=== PATIENT | male | born 1965 | race Hispanic/Latino ===

== ENCOUNTER 2017-12-14 01:10 | Emergency (ER) | payer BC ==
[2017-12-14] MEDS ORDERED: NA CHLORIDE 0.9% 1,000 ML ONE (02:02)
[2017-12-14] MEDS ORDERED: ONDANSETRON 4 MG/2 ML VIAL ONE ×2 (02:02→04:01)
[2017-12-14 02:25] LABS: Absolute Lymphocytes (CBC) 1.6 K/uL (0.7-4.9); Absolute Monocytes 0.8 K/uL (0.1-1.3); Absolute Neutrophil 7.8 K/uL (1.8-8.0); Basophils % 0.6 % (0-1.3); Eosinophils % 0.5 % (0-4.4); Hematocrit 40.1 % (39.6-49.0); Lymphocytes % 15.3 % (15.3-44.8); MCH 27.7 pg (27.0-35.0); MCV 86.2 fL (80-100); MPV 8.9 fL (7.6-11.3); Monocytes % 7.8 % (3.3-12.3); RBC Red Blood Cell Count 4.65 M/uL (4.33-5.43)
--- NOTE | 2017-12-14 02:38 | EDPHYS ---
Physician Documentation [facility] Name: Ramon Myers Age: 52 yrs Sex: Male : 1965 Arrival Date: 12/14/2017 Time: 01:13 Bed 4 Private MD: ED Physician Rashaun Knowles HPI: 12/14 01:17 This 52 yrs old Male presents to ER via EMS with complaints of Fall Injury. sharon 01:17 Details of fall: The patient fell from an upright position, while walking. Onset: The sharon symptoms/episode began/occurred just prior to arrival. Associated injuries: The patient sustained injury to the head, neck injury, decreased range of motion, pain. Severity of symptoms: At their worst the symptoms were mild, moderate, in the emergency department the symptoms are unchanged. The patient has not experienced similar symptoms in the past. Historical: - Allergies: 01:35 No Known Allergies; tl2 - Home Meds: 01:35 Naproxen Oral [Active]; Lyrica Oral [Active]; Tylenol #4 Oral [Active]; tl2 - PMHx: 01:35 cervical spine fusion; tl2 - Immunization history: Last tetanus immunization: unknown. - Family history:: not pertinent. - Social history:: Smoking status: Patient/guardian denies using tobacco. ROS: 01:17 Constitutional: Negative for fever, chills, and weight loss, Eyes: Negative for injury, sharon pain, redness, and discharge, Neck: Negative for injury, pain, and swelling, Cardiovascular: Negative for chest pain, palpitations, and edema, Respiratory: Negative for shortness of breath, cough, wheezing, and pleuritic chest pain, Abdomen/GI: Negative for abdominal pain, nausea, vomiting, diarrhea, and constipation, Back: Negative for injury and pain, : Negative for injury, bleeding, discharge, and swelling, MS/Extremity: Negative for injury and deformity, Skin: Negative for injury, rash, and discoloration, Psych: Negative for depression, anxiety, suicide ideation, homicidal ideation, and hallucinations, Allergy/Immunology: Negative for hives, rash, and allergies, Endocrine: Negative for neck swelling, polydipsia, polyuria, polyphagia, and marked weight changes, Hematologic/Lymphatic: Negative for swollen nodes, abnormal bleeding, and unusual bruising. 01:17 ENT: Positive for injury or acute deformity. 01:17 Neck: Positive for injury or acute deformity, pain with movement, pain at rest. 01:17 Neuro: Positive for weakness, of the right arm, left arm, right leg and left leg. Exam: 01:17 Constitutional: This is a well developed, well nourished patient who is awake, alert, sharon and in no acute distress. Head/Face: Normocephalic, atraumatic. Eyes: Pupils equal round and reactive to light, extra-ocular motions intact. Lids and lashes normal. Conjunctiva and sclera are non-icteric and not injected. Cornea within normal limits. Periorbital areas with no swelling, redness, or edema. ENT: Nares patent. No nasal discharge, no septal abnormalities noted. Tympanic membranes are normal and external auditory canals are clear. Oropharynx with no redness, swelling, or masses, exudates, or evidence of obstruction, uvula midline. Mucous membranes moist. Chest/axilla: Normal chest wall appearance and motion. Nontender with no deformity. No lesions are appreciated. Cardiovascular: Regular rate and rhythm with a normal S1 and S2. No gallops, murmurs, or rubs. Normal PMI, no JVD. No pulse deficits. Respiratory: Lungs have equal breath sounds bilaterally, clear to auscultation and percussion. No rales, rhonchi or wheezes noted. No increased work of breathing, no retractions or nasal flaring. Abdomen/GI: Soft, non-tender, with normal bowel sounds. No distension or tympany. No guarding or rebound. No evidence of tenderness throughout. Back: No spinal tenderness. No costovertebral tenderness. Full range of motion. Male : Normal genitalia with no discharge or lesions. Skin: Warm, dry with normal turgor. Normal color with no rashes, no lesions, and no evidence of cellulitis. Psych: Awake, alert, with orientation to person, place and time. Behavior, mood, and affect are within normal limits. 01:17 Neck: External neck: is normal, C-spine: C-collar placed ENROLLMENT SPECIALIST, Thyroid: appears normal, Trachea: is midline with no obvious abnormalities, ROM/movement: pain, that is moderate, with any movement, limited range of motion. 02:39 Radiologist reports: fracture at dens base, type 2 sharon Vital Signs: 01:14 BP 145 / 94; Pulse 92; Resp 18; Temp 97.8(O); Pulse Ox 98% on R/A; Weight 74.84 kg; tl2 Height 5 ft. 3 in. (160.02 cm); Pain 8/10; 02:13 BP 139 / 91; Pulse 99; Resp 22; Pulse Ox 97% on R/A; tl2 02:52 BP 151 / 88; Pulse 92; Resp 20; Pulse Ox 98% on R/A; tl2 01:14 Body Mass Index 29.23 (74.84 kg, 160.02 cm) tl2 [place] Coma Score: 01:14 Eye Response: spontaneous(4). Verbal Response: oriented(5). Motor Response: obeys tl2 commands(6). Total: 15. 02:13 Eye Response: spontaneous(4). Verbal Response: oriented(5). Motor Response: obeys tl2 commands(6). Total: 15. 02:54 Eye Response: spontaneous(4). Verbal Response: oriented(5). Motor Response: obeys tl2 commands(6). Total: 15. Trauma Score (Adult): 01:14 Eye Response: spontaneous(1); Verbal Response: oriented(1); Motor Response: obeys tl2 commands(2); Systolic BP: > 89 mm Hg(4); Respiratory Rate: 10 to 29 per min(4); [place] Score: 15; Trauma Score: 12 02:13 Eye Response: spontaneous(1); Verbal Response: oriented(1); Motor Response: obeys tl2 commands(2); Systolic BP: > 89 mm Hg(4); Respiratory Rate: 10 to 29 per min(4); [place] Score: 15; Trauma Score: 12 02:54 Eye Response: spontaneous(1); Verbal Response: oriented(1); Motor Response: obeys tl2 commands(2); Systolic BP: > 89 mm Hg(4); Respiratory Rate: 10 to 29 per min(4); [place] Score: 15; Trauma Score: 12 MDM: 01:15 Patient medically screened. [facility] 01:20 Data reviewed: vital signs, nurses notes, lab test result(s), EKG, radiologic studies, [facility] CT scan, plain films. 12/14 01:16 Order name: Basic Metabolic Panel [facility] 12/14 01:16 Order name: BNP [facility] 04/21 01:16 Order name: CBC with Diff [facility] 12/14 01:16 Order name: Ckmb [facility] 12/14 01:16 Order name: CPK [facility] 12/14 01:16 Order name: LFT's [facility] 12/14 01:16 Order name: Magnesium [facility] 12/14 01:16 Order name: PT-INR [facility] 12/14 01:16 Order name: Ptt, Activated [facility] 12/14 01:16 Order name: Troponin (emerg Dept Use Only) [facility] 12/14 01:16 Order name: UDS [facility] 12/14 02:38 Order name: CBC Smear Scan [facility] 12/14 03:32 Order name: Urine Dipstick--Ancillary (enter results) em1 12/14 03:33 Order name: Urine Dipstick-Ancillary [facility] 12/14 01:16 Order name: XRAY Chest (1 view) [facility] 12/14 01:16 Order name: EKG; Complete Time: 01:17 [facility] 12/14 01:16 Order name: Cardiac monitoring; Complete Time: 02:01 [facility] 12/14 01:16 Order name: EKG - Nurse/Tech; Complete Time: 02:01 [facility] 12/14 01:16 Order name: IV Saline Lock; Complete Time: 01:43 [facility] 12/14 01:16 Order name: Labs collected and sent; Complete Time: 02:01 [facility] 12/14 01:16 Order name: O2 Per Protocol; Complete Time: 01:43 [facility] 12/14 01:16 Order name: O2 Sat Monitoring; Complete Time: 01:43 [facility] 12/14 01:16 Order name: CT Head C Spine [facility] 12/14 01:16 Order name: Urine Dipstick-Ancillary (obtain specimen); Complete Time: 03:28 [facility] Administered Medications: 02:12 Drug: NS 0.9% 500 ml Route: IV; Rate: bolus; Site: Other; tl2 04:31 Follow up: IV Status: Completed infusion; IV Intake: 500ml tl2 02:13 Drug: NS 0.9% 1000 ml Route: IV; Rate: 125 ml/hr; Site: Other; tl2 04:30 Follow up: IV Status: Completed infusion tl2 02:13 Drug: fentaNYL (PF) 25 mcg Route: IVP; Site: Other; tl2 04:31 Follow up: Response: No adverse reaction; Pain is decreased tl2 02:13 Drug: Zofran 4 mg Route: IVP; Site: Other; tl2 04:31 Follow up: Response: No adverse reaction tl2 02:52 Drug: Decadron - Dexamethasone 10 mg Route: IVP; Site: Other; tl2 04:32 Follow up: Response: No adverse reaction tl2 04:32 Drug: morphine 4 mg Route: IVP; Site: Other; tl2 04:32 Follow up: Response: No adverse reaction; Medication administered at discharge. tl2 04:32 Drug: Zofran 4 mg Route: IVP; Site: Other; tl2 04:33 Follow up: Response: No adverse reaction; Medication administered at discharge. tl2 Point of Care Testing: Blood Glucose: 01:14 Blood Glucose: 115 mg/dL; tl2 Ranges: Critical Glucose Levels:Adult <50 mg/dl or >400 mg/dl <40 mg/dl or >180 mg/dl Disposition: 12/14/17 02:38 Transfer ordered to [facility]. Diagnosis are Type II dens fracture, Fall due to bumping against object. - Reason for transfer: Higher level of care. - Accepting physician is to . - Condition is Stable. - Problem is new. - Symptoms have improved. Signatures: Dispatcher [employer] Rashaun Pérez MD MD cha Knox, Taylor, RN RN tl2
--- NOTE | 2017-12-14 02:38 | ER ---
Nurse's Notes [facility] Name: Ramon Myers Age: 52 yrs Sex: Male : 1965 Arrival Date: 12/14/2017 Time: 01:13 Bed 4 Private MD: Diagnosis: Type II dens fracture;Fall due to bumping against object Presentation: 12/14 01:14 Presenting complaint: Patient states: I was walking to the refrigerator and I slipped tl2 and fell and hit the left side of my neck and head. + LOC. Pt reports increased numbness and weakness in all extremities after fall. Pt AOx4. C-collar in place. Care prior to arrival: Cervical collar in place. Placed on backboard. Mechanism of Injury: Fall from standing position. Trauma event details: Injury occurred in the [facility]. 01:14 Acuity: SOPHIA 2 tl2 01:14 Method Of Arrival: EMS: [facility] tl2 01:33 Transition of care: patient was not received from another setting of care. Onset of tl2 symptoms was December 14, 2017 at 00:50. Initial Sepsis Screen: Does the patient meet any 2 criteria? No. Patient's initial sepsis screen is negative. Does the patient have a suspected source of infection? No. Patient's initial sepsis screen is negative. Trauma Activation: Physician: ED Physician; Name: Benson; Notified At: 01:10; Arrived At: 01:10 Physician: General Surgeon; Name: ; Notified At: 01:10; Arrived At: Physician: Radiology; Name: Tona; Notified At: 01:10; Arrived At: Physician: Respiratory; Name: Arabella; Notified At: 01:10; Arrived At: Physician: Lab; Name: ; Notified At: 01:10; Arrived At: Historical: - Allergies: 01:35 No Known Allergies; tl2 - Home Meds: 01:35 Naproxen Oral [Active]; Lyrica Oral [Active]; Tylenol #4 Oral [Active]; tl2 - PMHx: 01:35 cervical spine fusion; tl2 - Immunization history: Last tetanus immunization: unknown. - Family history:: not pertinent. - Social history:: Smoking status: Patient/guardian denies using tobacco. Screenin:14 Abuse screen: Denies threats or abuse. Nutritional screening: No deficits noted. tl2 Tuberculosis screening: No symptoms or risk factors identified. Fall risk At risk due to injury, prior history of falls. 01:36 Fall Risk Fall in past 12 months (25 points). Gait- Impaired (20 pts.). tl2 Primary Survey: 01:14 A: Airway: patent. Breathing/Chest: Respiratory pattern: regular, Respiratory effort: tl2 spontaneous, unlabored, Breath sounds: clear, Chest inspection: symmetrical rise and fall of the chest. Circulation: Heart tones present. Pulses: palpable . Disability Alert. 02:00 Reassessment Airway Airway Patent Breathing/Chest Respiratory pattern Regular tl2 Respiratory effort Spontaneous Unlabored Breath sounds Clear Circulation Pulses Palpable Disability Alert. Secondary Survey: 01:14 HEENT: No deficits noted. Gastrointestinal: Palpation No deficit noted. : No signs tl2 and/or symptoms were reported regarding the genitourinary system. Musculoskeletal: Reports weakness in right arm, left arm, right leg and left leg numbness in right arm, left arm, right leg and left leg. Assessment: 01:14 General: Appears in no apparent distress. uncomfortable, Behavior is calm, cooperative, tl2 appropriate for age. Pain: Complains of pain in neck. Neuro: Level of Consciousness is awake, alert, obeys commands, Managing Manager are weak bilaterally Speech is normal, Facial symmetry appears normal, Numbness in right arm, left arm, right leg and left leg Reports numbness weakness. Cardiovascular: Denies chest pain. Respiratory: Airway is patent Respiratory effort is even, unlabored, Respiratory pattern is regular, symmetrical. GI: No signs and/or symptoms were reported involving the gastrointestinal system. : No signs and/or symptoms were reported regarding the genitourinary system. Derm: Skin is pink, warm \T\ dry. Musculoskeletal: Range of motion: limited in all extremities, Reports weakness in right arm, left arm, right leg and left leg numbness in right arm, left arm, right leg and left leg. 02:14 Reassessment: Patient appears in no apparent distress at this time. No changes from tl2 previously documented assessment. Patient and/or family updated on plan of care and expected duration. Pain level reassessed. Patient is alert, oriented x 3, equal unlabored respirations, skin warm/dry/pink. Awaiting lab and CT results. 02:52 Reassessment: Patient appears in no apparent distress at this time. Patient and/or tl2 family updated on plan of care and expected duration. Pain level reassessed. Patient is alert, oriented x 3, equal unlabored respirations, skin warm/dry/pink. 03:02 Reassessment: Alea Myers [phone]. tl2 04:23 Reassessment: Patient appears in no apparent distress at this time. Patient and/or tl2 family updated on plan of care and expected duration. Pain level reassessed. Patient is alert, oriented x 3, equal unlabored respirations, skin warm/dry/pink. Pt stable for transfer. Vital Signs: 01:14 BP 145 / 94; Pulse 92; Resp 18; Temp 97.8(O); Pulse Ox 98% on R/A; Weight 74.84 kg; tl2 Height 5 ft. 3 in. (160.02 cm); Pain 8/10; 02:13 BP 139 / 91; Pulse 99; Resp 22; Pulse Ox 97% on R/A; tl2 02:52 BP 151 / 88; Pulse 92; Resp 20; Pulse Ox 98% on R/A; tl2 01:14 Body Mass Index 29.23 (74.84 kg, 160.02 cm) tl2 [place] Coma Score: 01:14 Eye Response: spontaneous(4). Verbal Response: oriented(5). Motor Response: obeys tl2 commands(6). Total: 15. 02:13 Eye Response: spontaneous(4). Verbal Response: oriented(5). Motor Response: obeys tl2 commands(6). Total: 15. 02:54 Eye Response: spontaneous(4). Verbal Response: oriented(5). Motor Response: obeys tl2 commands(6). Total: 15. Trauma Score (Adult): 01:14 Eye Response: spontaneous(1); Verbal Response: oriented(1); Motor Response: obeys tl2 commands(2); Systolic BP: > 89 mm Hg(4); Respiratory Rate: 10 to 29 per min(4); [place] Score: 15; Trauma Score: 12 02:13 Eye Response: spontaneous(1); Verbal Response: oriented(1); Motor Response: obeys tl2 commands(2); Systolic BP: > 89 mm Hg(4); Respiratory Rate: 10 to 29 per min(4); [place] Score: 15; Trauma Score: 12 02:54 Eye Response: spontaneous(1); Verbal Response: oriented(1); Motor Response: obeys tl2 commands(2); Systolic BP: > 89 mm Hg(4); Respiratory Rate: 10 to 29 per min(4); [place] Score: 15; Trauma Score: 12 ED Course: 01:13 Patient arrived in ED. em1 01:14 Patient has correct armband on for positive identification. Bed in low position. Call tl2 light in reach. Side rails up X2. Adult w/ patient. 01:14 Inserted saline lock: 22 gauge in right hand, using aseptic technique. placed by tl2 kevin Gonzalez. Patient maintains SpO2 saturation greater than 95% on room air. 01:15 Rashaun Knowles MD is Attending Physician. sharon 01:16 Triage completed. tl2 01:33 No provider procedures requiring assistance completed. tl2 01:33 Thermoregulation: warm blanket given to patient. tl2 01:57 XRAY Chest (1 view) In Process Unspecified. EDMS 01:57 CT Head C Spine In Process Unspecified. EDMS 01:59 Pura Leonardo, RN is Primary Nurse. tl2 02:13 EKG done, by ED staff, reviewed by Rashaun Knowles MD. cb2 02:13 Inserted saline lock: 20 gauge in right ,using aseptic technique. foot Blood collected. tl2 03:32 Urine collected: clean catch specimen, padilla colored. cb2 04:23 Patient transferred, IV remains in place. tl2 04:29 Arm band placed on right wrist. tl2 Administered Medications: 02:12 Drug: NS 0.9% 500 ml Route: IV; Rate: bolus; Site: Other; tl2 04:31 Follow up: IV Status: Completed infusion; IV Intake: 500ml tl2 02:13 Drug: NS 0.9% 1000 ml Route: IV; Rate: 125 ml/hr; Site: Other; tl2 04:30 Follow up: IV Status: Completed infusion tl2 02:13 Drug: fentaNYL (PF) 25 mcg Route: IVP; Site: Other; tl2 04:31 Follow up: Response: No adverse reaction; Pain is decreased tl2 02:13 Drug: Zofran 4 mg Route: IVP; Site: Other; tl2 04:31 Follow up: Response: No adverse reaction tl2 02:52 Drug: Decadron - Dexamethasone 10 mg Route: IVP; Site: Other; tl2 04:32 Follow up: Response: No adverse reaction tl2 04:32 Drug: morphine 4 mg Route: IVP; Site: Other; tl2 04:32 Follow up: Response: No adverse reaction; Medication administered at discharge. tl2 04:32 Drug: Zofran 4 mg Route: IVP; Site: Other; tl2 04:33 Follow up: Response: No adverse reaction; Medication administered at discharge. tl2 Point of Care Testing: Blood Glucose: 01:14 Blood Glucose: 115 mg/dL; tl2 Ranges: Intake: 01:14 PO: 0ml; Total: 0ml. tl2 04:31 IV: 500ml; Total: 500ml. tl2 Outcome: 02:38 ER care complete, transfer ordered by MD. herrera 04:23 Transferred by ground EMS to [facility], Transfer form completed. tl2 04:23 Condition: stable 04:23 Discharge instructions given to patient, family, Instructed on the need for transfer. 04:29 Patient's length of stay in the Emergency Department was greater than 2 hours. tl2 04:33 Patient left the ED. tl2 Signatures: Dispatcher [employer] Rashaun Pérez MD MD cha Martinez, Eric em1 Pura Leonardo RN RN tl2 Carlos Lin [facility]
[2017-12-14 02:42] LABS: Protime INR 0.92
[2017-12-14] MEDS ORDERED: DEXAMETHASONE 10 MG/ML VIAL ONE (02:44)
[2017-12-14 03:16] LABS: Bicarbonate 27 mEq/L (21-31); Glucose Level 105 mg/dL (65-120); Potassium 3.9 mEq/L (3.6-5.0); Sodium Level 141 mEq/L (135-145)
[2017-12-14 03:21] LABS: CKMB Creatine Kinase MB 2.8 ng/ml (0.3-4.0)
[2017-12-14 03:22] LABS: ALT/SGPT 19 IU/L (10-60); AST/SGOT 22 IU/L (10-42); Albumin 3.8 g/dL (3.2-5.5); Alkaline Phosphatase 98 IU/L (42-121); BUN Blood Urea Nitrogen 16 mg/dL (6-20); Bilirubin Direct 0.1 mg/dL (0-0.2); Bilirubin Total 0.6 mg/dL (0.3-1.2); Creatine Phosphokinase 129 IU/L (22-269); Magnesium 2.2 mg/dL (1.8-2.5); Protein, Total 6.7 g/dL (6.0-8.3)
[2017-12-14 03:39] LABS: Anisocytosis 1+; Blood Morphology Comment NOTED (NOT SEEN); Platelet Estimate ADEQ; Urine White Blood Cell Casts OK
[2017-12-14 03:55] LABS: Barbiturates NEGATIVE; Benzodiazepines NEGATIVE; Cocaine POSITIVE; METHAMPHETAM NEGATIVE; Opiates POSITIVE
[2017-12-14] MEDS ORDERED: MORPHINE 4 MG/ML SYR ONE (04:00)
[2017-12-14 04:39] VITALS: TEMP 97.8
[2017-12-14 04:41] VITALS: BP 151/88; O2SAT 98
[2017-12-14 05:24] LABS: Urine Blood NEGATIVE (NEG); Urine Glucose NEGATIVE (NEG); Urine Protein NEGATIVE (NEG); Urine Specific Gravity >1.030 (1.005-1.030)
--- NOTE | 2017-12-14 07:14 | EKG ---
Test Date: 2017-12-14 Test Time: 01:57:56 Bad Cloth Checker: PANKAJ MEASUREMENT RESULTS: Intervals: Rate: 86 SD: 152 QRSD: 84 QT: 342 QTc: 409 [place]: P: 56 SD: 152 QRS: 51 T: 36 INTERPRETIVE STATEMENTS: Normal sinus rhythm Normal ECG Compared to ECG 11/27/2017 10:04:23 No significant changes Electronically Signed On 12-14-17 07:13:37 CDT by Benjamin Corrigan
--- NOTE | 2017-12-14 10:51 | RAD REPORT ---
EXAM DESCRIPTION: CT - Head C Spine Mpr Wo Con - 12/14/2017 9:03 am CLINICAL HISTORY: Head and neck injury status post fall. Head and neck pain. Loss of consciousness w ith numbness COMPARISON: 2014 MRI TECHNIQUE: Computed axial tomography of the head and cervical spine was obtained. Sagittal and coronal reconstruction was performed.A preliminary report was generated by [employer] in reviewed prior to this dictation All CT scans are performed using dose optimization technique as appropriate and may include automated exposure control or mA/KV adjustment according to patient size. FINDINGS: Some of the images are degraded by patient motion artifact. An intracranial bleed is not seen. The ventricles are normal in caliber. An extra-axial fluid collect ion is not noted.Fluid within the visualized sinuses and mastoids is not seen A fracture involves the base of the dens. The odontoid proces process is displaced 4.5 millimeters po steriorly with respect to the C2 body. Postsurgical changes involve C2 through C4. A right laminar screw at C3 enters the right lateral aspe ct of the transverse foramen Spondylosis C6-7 and C7-T1 results in narrowing of the thecal sac which measures 7 millimeters IMPRESSION: No acute intracranial abnormality is seen. Some images are degraded by patient motion ar tifact Type 2 fracture of the dens. The odontoid process is displaced 4.5 millimeters with respect to the cara dy of C2 Spondylosis C6-7 and C7-T1 resulting in mild to moderate central spinal stenosis Postsurgical changes involving C2 through C4 . A right laminar screw at C3 enters the right lateral a spect of the transverse foramen Ankylosing spondylitis involves the cervical spine
--- NOTE | 2017-12-14 10:56 | RAD REPORT ---
EXAM DESCRIPTION: Luis Single View12/14/2017 1:56 am CLINICAL HISTORY: Chest pain COMPARISON: 2013 FINDINGS: The lungs appear clear of acute infiltrate. The heart is normal size. Mild prominence of the mediastinum is seen IMPRESSION: Mild prominence of mediastinum probably secondary to positioning and technique rather th an pathology. However this should be confirmed with PA and lateral chest films
== END 2017-12-14 04:33 | disposition short-term general hospital (02) ==
LOC: ER 01:10
DX: S12.112A Nondisplaced Type II dens fracture, initial encounter for closed fracture (principal); W18.00XA Striking against unspecified object with subsequent fall, initial encounter; Y93.01 Activity, walking, marching and hiking; Y92.9 Unspecified place or not applicable
CPT/HCPCS: 36415; 70450; 71045; 72125; 80048; 80076; 80307; 81003; 82550; 82553; 83735; 83880; 84484; 85025; 85610; 85730; 93005; 96361; 96374; 96375; 99285; J1100; J2405; J7030

== ENCOUNTER 2018-08-20 08:11 | Inpatient (IN) | payer BC ==
[2018-08-15 12:10] LABS: Absolute Lymphocytes (CBC) 0.8 K/uL (0.7-4.9); Absolute Monocytes 0.4 K/uL (0.1-1.3); Absolute Neutrophil 4.8 K/uL (1.8-8.0); Basophils % 0.5 % (0-1.3); Eosinophils % 0.1 % (0-4.4); Hematocrit 43.3 % (39.6-49.0); Lymphocytes % 13.4 % (15.3-44.8); MPV 9.6 fL (7.6-11.3); Monocytes % 6.2 % (3.3-12.3)
[2018-08-15 12:25] LABS: BUN Blood Urea Nitrogen 12 mg/dL (7-18); Bicarbonate 25 mmol/L (21-32); Glucose Level 94 mg/dL (74-106); Potassium 4.4 mmol/L (3.5-5.1); Sodium Level 136 mmol/L (136-145)
--- NOTE | 2018-08-15 18:06 | EKG ---
Test Date: 2018-08-15 Test Time: 12:04:17 Dispatcher [employer]obile Rental: DYLAN MEASUREMENT RESULTS: Intervals: Rate: 63 TN: 142 QRSD: 86 QT: 372 QTc: 380 [place]: P: 49 TN: 142 QRS: 55 T: 48 INTERPRETIVE STATEMENTS: Normal sinus rhythm Normal ECG No previous ECG available for comparison Electronically Signed On 08-15-18 18:04:49 WOOL PULLER by Magno Parson
[2018-08-20] MEDS ORDERED: Ringers Lactate 1,000 ML IV ONE ×2 (08:46→13:51)
[2018-08-20] MEDS ORDERED: CEFAZOLIN 2GM (PREMIX IV) 2 GM/50 ML BAG ONE (08:47)
--- OUTSIDE RECORDS SUMMARY | 2018-08-20 09:17 | XMS REPORT | Continuity of Care Document ---
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, p>4</sup> Centricity on OPID 04/19/15. ELIZABET Garcia M [facility] LUMBAR Active 03/17/20 Condition 03/17/2015 [facility] RADICULOPATHY 15 Neuro LUMBAR HNP Active 03/17/20 Condition 03/17/2015 [facility] 15 Neuro Ankylosing Active 11/25/19 Problem 03/21/2018 Data migrated [facility] spondylitis<sup> 15 from [facility] 1</sup> Centricity on OPID 04/19/15. ELIZABTE Garcia M H [facility] Ataxia<sup>2</del castillo Active 11/25/19 Problem 03/21/2018 Data migrated [facility] p> [address] [facility], Centricity on OPID 04/19/15. [facility] Cervical Active 11/25/19 Problem 03/21/2018 Data migrated [facility] spondylosis with [address] [facility], myelopathy<sup>3 Centricity on [facility] </sup> 04/19/15. 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 Unspecified 12/26/2017 [facility] fall, initial Medical encounter Center Central cord 01/11/2018 [facility] syndrome at C1 level of cervical spinal cord, initial encounter Neck pain Active Problem 03/21/2018 [facility] [place] Pain Resolved Problem 03/21/2018 [facility] [place] Garcia [facility] [place] Simple obesity Active Problem 03/21/2018 [facility] UNSP INJURY AT Active [facility] LEVEL OF Medical CERVICAL SP Center CENTRAL CORD Active [facility] SYNDROME AT C1, INIT Medications Medication Details Route Status Patient Ordering Order Source Instructions Provider Date tramadol 50 mg=1 tab, Active [facility] hydrochloride 50 PO, Q6H, PRN 018 MG Oral Tablet Pain Score 4-6, X 30 day, # 20 tab, 0 Refill(s) Docusate Sodium 100 mg=1 Active [facility] 100 MG Oral cap, PO, 018 Capsule Q12H, # 60 cap, 1 Refill(s) bisacodyl 10 mg 10 mg=1 Active [facility] rectal supp, [place], 018 suppository Bedtime, PRN Bowel Movements | no bowel movement in 24 hrs, X 60 day, # 30 supp, 1 Refill(s) Famotidine 20 MG 20 mg=1 tab, Active [facility] Oral Tablet PO, BID, # 018 60 tab, 1 Refill(s) sennosides, FPC 34.4 mg=4 Active [facility] 8.6 MG Oral tab, PO, 018 Tablet Lunch, X 30 day, # 120 tab, 1 Refill(s) tramadol 50 mg=1 tab, No Longer [facility] hydrochloride 50 PO, Q6H, PRN Active 018 MG Oral Tablet Pain Score 4-6, X 30 day, # 90 tab, 0 Refill(s) predniSONE 5 mg 5 mg=1 tab, Active [facility] oral tablet PO, Daily, # 018 30 tab, 1 Refill(s) Bisacodyl 10 mg, 1 No Longer [facility] supp, Route: Active 018 [place], Drug form: SUPP, Bedtime, Dosing Weight 75.182, kg, PRN Bowel Movements, Start date: 01/06/18 10:42:00 CDT, Stop date: 01/22/18 10:42:00 CDT, no bowel movement in 24 hrsNotes: (Same As: Dulcolax, Bisco-Lax) tramadol 50 mg, 1 No Longer [facility] hydrochloride 50 tab, Route: Active 018 MG Oral Tablet PO, Drug form: TAB, Q6H, Dosing Weight 75.182, kg, PRN Pain Score 4-6, Start date: 01/06/18 8:45:00 CDT, Duration: 30 day, Stop date: 02/05/18 8:44:00 CDTNotes: Not to exceed 400mg/day. (Same As: Ultra) Trazodone 50 mg, 1 No Longer [facility] Hydrochloride 50 tab, Route: Active 018 MG Oral Tablet PO, Drug form: TAB, Bedtime, Dosing Weight 75.182, kg, PRN Insomnia, Start date: 01/03/18 15:33:00 CDT, Duration: 60 day, Stop date: 03/04/18 15:32:00 CDTNotes: (Same As: Desyrel) Lyrica 25 mg, 1 No Longer [facility] cap, Route: Active 018 PO, Drug form: CAP, Q8H, Dosing Weight 75.182, kg, Start date: 01/02/18 16:00:00 CDT, Duration: 3 day, Stop date: 01/05/18 8:00:00 CDTNotes: (Same as: Lyrica) tramadol 25 mg, 0.5 No Longer [facility] hydrochloride 50 tab, Route: Active 018 MG Oral Tablet PO, Drug form: TAB, Q6H, Dosing Weight 75.182, kg, PRN Pain Score 4-6, Start date: 01/02/18 9:32:00 CDT, Duration: 30 day, Stop date: 02/01/18 9:31:00 CDTNotes: Not to exceed 400mg/day. (Same As: Ultram) Bisacodyl 10 mg, 1 No Longer [facility] supp, Route: Active 018 [place], Drug form: SUPP, Bedtime, Dosing Weight 75.182, kg, Start date: 12/31/17 21:00:00 CDT, Stop date: 01/22/18 21:00:00 CDTNotes: (Same As: Dulcolax, Bisco-Lax) Lyrica 50 mg, 1 No Longer [facility] cap, Route: Active 018 PO, Drug form: CAP, Q8H, Dosing Weight 75.182, kg, Start date: 12/30/17 16:00:00 CDT, Duration: 30 day, Stop date: 01/29/18 8:00:00 CDTNotes: Same as Lyrica sennosides, FPC 34.4 mg, 4 No Longer [facility] tab, Route: Active 018 PO, Drug Form: TAB, Dosing Weight 75.182, kg, Lunch, Start date: 12/28/17 12:00:00 CDT, Duration: 60 day, Stop date: 02/25/18 12:00:00 CDTNotes: (Same as: Lesterot) tramadol 75 mg, 1.5 No Longer [facility] hydrochloride 50 tab, Route: Active 018 MG Oral Tablet PO, Drug form: TAB, BID, Dosing Weight 75.182, kg, Start date: 12/28/17 7:00:00 CDT, Duration: 30 day, Stop date: 01/26/18 12:00:00 CDTNotes: Not to exceed 400mg/day. (Same As: Ultram) Dibucaine 1% 1 appl, No Longer [facility] topical ointment Route: TOP, Active 018 Daily, Drug form: OINT, PRN Other -See Comment, Start date: 12/27/17 23:48:00 CDT, Duration: 30 day, Stop date: 01/26/18 23:47:00 CDTNotes: Non-Formular y Drug (Same as: Nupercainal) Methocarbamol 500 mg, 1 No Longer [facility] tab, Route: Active 018 PO, Drug form: TAB, Q8H, Dosing Weight 75.182, kg, Start date: 12/27/17 16:00:00 CDT, Duration: 3 day, Stop date: 12/30/17 8:00:00 CDTNotes: (Same as:Robaxin) sennosides, FPC 17.2 mg, 2 No Longer [facility] tab, Route: Active 018 PO, Drug Form: TAB, Dosing Weight 75.182, kg, Lunch, Start date: 12/26/17 12:00:00 CDT, Duration: 60 day, Stop date: 02/23/18 12:00:00 CDTNotes: (Same as: Lesterot) tramadol 50 mg, 1 No Longer [facility] hydrochloride 50 tab, Route: Active 018 MG Oral Tablet PO, Drug form: TAB, BID, Dosing Weight 75.182, kg, Start date: 12/26/17 12:00:00 CDT, Duration: 30 day, Stop date: 01/25/18 7:00:00 CDTNotes: Not to exceed 400mg/day. (Same As: Ultram) SMOG Enema 900 ml, Inactive [facility] Route: [place], 018 Drug Form: RASHEEDA, Dosing Weight 75.182, kg, Bedtime, Start date: 12/25/17 20:00:00 CDT, Duration: 1 doses or times, Stop date: 12/25/17 20:00:00 CDTNotes: Non formulary item. saline for irrigation (1L bottle) 300 ml, mineral oil 300 ml, glycerine 300 ml. Dispense (900 ml) in 1L NS bottle magnesium 150 ml, Inactive [facility] citrate 58.2 Route: PO, 018 MG/ML Oral Drug Form: Solution LIQ, Dosing Weight 75.182, kg, ONCE, Start date: 12/25/17 16:00:00 CDT, Stop date: 12/25/17 16:00:00 CDTNotes: (Same as: Citrate of Magnesia) Concentratio n: 1.745 gm / 30 mL Lyrica 75 mg, 1 No Longer [facility] cap, Route: Active 018 PO, Drug form: CAP, Q8H, Dosing Weight 75.182, kg, Start date: 12/25/17 16:00:00 CDT, Duration: 30 day, Stop date: 01/24/18 8:00:00 CDTNotes: (Same as: Lyrica) Bisacodyl 10 mg, 1 No Longer [facility] supp, Route: Active 018 [place], Drug form: SUPP, Bedtime, Dosing Weight 75.182, kg, Start date: 12/25/17 8:30:00 CDT, Stop date: 01/22/18 21:00:00 CDTNotes: (Same As: Dulcolax, Bisco-Lax) Acetaminophen 650 mg, 2 No Longer [facility] tab, Route: Active 018 PO, Drug form: TAB, BID, Dosing Weight 75.182, kg, Start date: 12/25/17 7:00:00 CDT, Duration: 30 day, Stop date: 01/23/18 12:00:00 CDTNotes: Do not exceed 4 gm/day. (Same as: Tylenol) Methocarbamol 750 mg, 1 No Longer [facility] tab, Route: Active 018 PO, Drug form: TAB, Q8H, Dosing Weight 75.182, kg, Start date: 12/24/17 16:00:00 CDT, Duration: 3 day, Stop date: 12/27/17 8:00:00 CDTNotes: (Same as:Robaxin) Pepcid 20 mg, 1 No Longer [facility] tab, Route: Active 018 PO, Drug form: TAB, BID, Dosing Weight 75.182, kg, Start date: 12/21/17 21:00:00 CDT, Duration: 30 day, Stop date: 01/20/18 8:30:00 CDTNotes: (Same as: Pepcid) SMOG Enema 900 ml, Inactive [facility] Route: [place], 018 Drug Form: RASHEEDA, Dosing Weight 75.182, kg, ONCE, Start date: 12/21/17 19:00:00 CDT, Stop date: 12/21/17 19:00:00 CDTNotes: Non formulary item. saline for irrigation (1L bottle) 300 ml, mineral oil 300 ml, glycerine 300 ml. Dispense (900 ml) in 1L NS bottle magnesium 300 ml, Inactive [facility] citrate 58.2 Route: PO, 018 MG/ML Oral Drug Form: Solution LIQ, Dosing Weight 75.182, kg, ONCE, Start date: 12/21/17 18:00:00 CDT, Stop date: 12/21/17 18:00:00 CDTNotes: (Same as: Citrate of Magnesia) Concentratio n: 1.745 gm / 30 mL Prednisone 5 mg, 1 tab, No Longer [facility] Route: PO, Active 018 Drug form: TAB, Daily, Dosing Weight 75.182, kg, Start date: 12/21/17 8:30:00 CDT, Duration: 30 day, Stop date: 01/19/18 8:30:00 CDTNotes: Take with food. POLYETHYLENE 17 gm, 1 No Longer [facility] GLYCOL 3350 pkt, Route: Active 018 PO, Drug form: PWDR, Daily, Dosing Weight 75.182, kg, Start date: 12/21/17 8:30:00 CDT, Duration: 30 day, Stop date: 01/19/18 8:30:00 CDTNotes: Dissolve in 8 oz of water or juice. (Same as: Miralax) Enoxaparin 30 mg, 0.3 No Longer [facility] mL, Route: Active 018 SUB-Q, Drug form: INJ, [id number], Dosing Weight 75.182, kg, Start date: 12/21/17 6:00:00 CDT, Stop date: 01/19/18 6:00:00 CDTNotes: (Same as: Lovenox) Methocarbamol 1,000 mg, 2 No Longer [facility] tab, Route: Active 018 PO, Drug form: TAB, Q8H, Dosing Weight 75.182, kg, Start date: 12/21/17 0:00:00 CDT, Duration: 30 day, Stop date: 01/19/18 16:00:00 CDTNotes: (Same as:Robaxin) Lyrica 100 mg, 1 No Longer [facility] cap, Route: Active 018 PO, Drug form: CAP, Q8H, Dosing Weight 75.182, kg, Start date: 12/21/17 0:00:00 CDT, Duration: 30 day, Stop date: 01/19/18 16:00:00 CDTNotes: (Same as: Lyrica) Methotrexate 20 mg, No Longer [facility] Route: PO, Active 018 Drug form: TAB, qWeek, Dosing Weight 75.182, kg, Start date: 12/20/17 21:00:00 CDT, Duration: 30 day, Stop date: 01/17/18 9:00:00 CDT Melatonin 3 MG 3 mg, 1 tab, No Longer [facility] Extended Release Route: PO, Active 018 Tablet Drug Form: TAB, Dosing Weight 75.182, kg, Bedtime, Start date: 12/20/17 21:00:00 CDT, Duration: 30 day, Stop date: 01/18/18 21:00:00 CDTNotes: (Same as: Melatonin) Docusate Sodium 100 mg, 1 No Longer [facility] 100 MG Oral cap, Route: Active 018 Capsule PO, Drug form: CAP, Q12H, Dosing Weight 75.182, kg, Start date: 12/20/17 21:00:00 CDT, Duration: 30 day, Stop date: 01/19/18 9:00:00 CDTNotes: (Same as: Colace) (Do Not Crush) sennosides, FPC 8.6 mg, 1 No Longer [facility] tab, Route: Active 018 PO, Drug Form: TAB, Dosing Weight 75.182, kg, BID, Start date: 12/20/17 21:00:00 CDT, Duration: 30 day, Stop date: 01/19/18 8:30:00 CDTNotes: (Same as: Senokot) Bisacodyl 10 mg, 1 No Longer [facility] supp, Route: Active 018 [place], Drug form: SUPP, Daily, Dosing Weight 75.182, kg, PRN Constipation , Start date: 12/20/17 20:36:00 CDT, Duration: 30 day, Stop date: 01/19/18 20:35:00 CDTNotes: (Same As: Dulcolax, Bisco-Lax) tramadol 100 mg, 2 No Longer [facility] hydrochloride 50 tab, Route: Active 018 MG Oral Tablet PO, Drug form: TAB, Q6H, Dosing Weight 75.182, kg, PRN Pain Score 4-6, Start date: 12/20/17 20:36:00 CDT, Duration: 30 day, Stop date: 01/19/18 20:35:00 CDTNotes: Not to exceed 400mg/day. (Same As: Ultram) Acetaminophen 650 mg, 2 No Longer [facility] tab, Route: Active 018 PO, Drug form: TAB, Q4H, Dosing Weight 75.182, kg, PRN Pain 1-3/Temp > 100.4 F, Start date: 12/20/17 20:32:00 CDT, Duration: 30 day, Stop date: 01/19/18 20:31:00 CDTNotes: Do not exceed 4 gm/day. (Same as: Tylenol) Saline Flush 10 mL, No Longer [facility] 0.9% Route: IVP, Active 018 Drug Form: INJ, Dosing Weight 75.182, kg, PRN, PRN Line Flush, Start date: 12/20/17 20:32:00 CDT, Duration: 30 day, Stop date: 01/19/18 20:31:00 CDTNotes: (Same as: BD Posiflush) methotrexate 2.5 20 mg=8 tab, No Longer [facility] mg oral tablet PO, qWeek, 0 Active 018 Neuro Refill(s) pregabalin 100 100 mg=1 No Longer [facility] MG Oral Capsule cap, PO, Active 018 Neuro [Lyrica] TID, 0 Refill(s) Acetaminophen 1 tab, PO, No Longer [facility] 300 MG / Codeine Q6H, 0 Active 018 Neuro Phosphate 60 MG Refill(s) Oral Tablet [Tylenol with Codeine #4] gabapentin 600 600 mg=1 No Longer [facility] MG Oral Tablet tab, PO, Active 018 Neuro BID, 0 Refill(s) Acetaminophen 2 tab, Inactive [place] 325 MG / Route: PO, 018 Medical Hydrocodone Drug Form: Center Bitartrate 5 MG TAB, Dosing Oral Tablet Weight [[place] 5/325] 77.273, kg, ONCE, STAT, Start date: 09/19/17 19:38:00 CLINICAL ASSOCIATE, Stop date: 09/19/17 19:38:00 CLINICAL ASSOCIATE tramadol 50 mg=1 tab, No Longer [place] hydrochloride 50 PO, BID, X Active 018 Medical MG Oral Tablet 15 day, # 30 Center tab, 0 Refill(s) Acetaminophen 1 - 2 tab, No Longer [place] 300 MG / Codeine PO, Q4H, PRN Active 018 Medical Phosphate 30 MG Pain, X 3 Center Oral Tablet day, # 20 [Tylenol with tab, 0 Codeine #3] Refill(s) Valium 5 mg, Route: Inactive [place] PO, ONCE, 018 Medical Dosing Center Weight 77.273, kg, Priority: STAT, Start date: 09/19/17 11:18:00 CLINICAL ASSOCIATE, Stop date: 09/19/17 11:18:00 CLINICAL ASSOCIATE Acetaminophen 2 tab, Inactive [place] 325 MG / Route: PO, 018 Medical Hydrocodone Drug Form: Center Bitartrate 5 MG TAB, Dosing Oral Tablet Weight [[place]gs 5/325] 77.273, kg, ONCE, STAT, Start date: 09/19/17 11:18:00 CLINICAL ASSOCIATE, Stop date: 09/19/17 11:18:00 CLINICAL ASSOCIATE TYLENOL WITH take 1-2 Active [facility] CODEINE #3 tablets 015 Neuro 300-30 MG TABS every 6 hours as needed for pain DIAZEPAM 5 MG 1 tab po q8h No Longer [facility] TABS prn muscle Active 015 Neuro spasms TYLENOL WITH 1 tab po q6h No Longer [facility] CODEINE #3 prn pain Active 015 Neuro 300-30 MG TABS LYRICA 75 MG 1 cap po bid No Longer [facility] CAPS Active 015 Neuro NORCO 10-325 MG 1-2 tabs po No Longer [facility] TABS q4-6h prn Active 015 Neuro pain DIAZEPAM 5 MG 1 tab po q8h No Longer [facility] TABS prn muscle Active 015 Neuro spasms LYRICA 75 MG 1 cap po tid No Longer [facility] CAPS Active 015 Neuro LYRICA 75 MG 1 cap po tid Active [facility] CAPS 015 Neuro Allergies, Adverse Reactions, Alerts Substance Category Reaction Severity Reaction Status Date Comments Source type Reported Immunizations Immunization Date Given Site Status Last Updated Comments Source Results Order Name Results Value Reference Date Interpretation Comments Source Range Spine Spine Study: Spine cervical wo contrast MRI 06/09 - [facility] cervical wo cervical - [place] contrast contrast MRI MRI Clinical Indication: M47.12 Other spondylosis with myelopathy, cervical region - M47.12 Other spondylosis with myelopathy, cervical region Read by: Ashu Perry MD Dictated Date/time: 06/09/18 12:54 Electronically Signed by: Ashu Perry MD 06/09/18 13:30 FINAL REPORT Comparison: CT cervical spine from 02/14/2018 TECHNIQUE: Multiplanar, multisequence magnetic resonance imaging of the cervical spine was performed without the administration of intravenous gadolinium contrast. FINDINGS: There is grade 1 retrolisthesis of C3 over C4 by 2 mm. No focal marrow signal abnormality is present. The prevertebral soft tissues, atlanto-dental interspace, and craniocervical junction are within nor mal limits. The visualized brainstem region is unremarkable. Intramedullary septated cyst within the right dorsolateral aspect of the cervical spinal cord at the level of C1-C2 is seen measuring 4 x 3 x 3 mm. Atrophy with intramedullary hyperintense signal abnorm ality within the cervical spinal cord at the level of C3-C4 is also noted. Postoperative changes of suboccipital fusion through the level of C4 are again seen. Stable changes of laminoplasty at the leve ls of C6 and C7 are also seen. Changes of laminectomy of C2-C4 are seen. Postoperative seroma in the suboccipital soft tissues extending inferiorly to the level of C7 is present and stable since prior exam from 02/14/2018. This seroma measures 1.3 x 2.2 cm greatest axial dimension. The discs are desiccated throughout the cervical spine and severe disc height loss at C3-C4 is seen. DISC SPACES: C2-C3: No significant disc bulge or protrusion is seen. The facets are intact. There is no spinal canal stenosis or neural foraminal narrowing. Changes of dorsal decompressive laminectomy are seen. C3-C4: Moderate size circumferential disc osteophyte complex is seen. Changes of dorsal decompressive laminectomy are noted. No spinal canal stenosis is seen. There is mild bilateral neural foraminal narrowing. C4-C5: No significant disc bulge or protrusion is seen. The facets are intact. There is no spinal canal stenosis or neural foraminal narrowing. 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 C5-C6: Small circumferential disc osteophyte complex is seen with superimposed ossification of the posterior longitudinal ligament. Osseous fusion across the facet joints is also seen. There is mild spi nal canal stenosis with the thecal sac measuring 9 mm AP dimension. No neural foraminal narrowing is seen. C6-C7: Large circumferential disc osteophyte complex is seen. Mild facet arthrosis is noted. There is no spinal canal stenosis. Mild right neural foraminal narrowing is present. Postoperative changes of laminoplasty are seen. C7-T1: Large circumferential disc osteophyte complex is seen. Moderate facet arthrosis is noted. Severe spinal canal stenosis is seen with the thecal sac measuring 7 mm AP dimension. Severe bilateral ne ural foraminal narrowing is noted. Changes of prior laminoplasty are seen. IMPRESSION: 1. Postoperative changes of multilevel fusion, laminectomy, and laminoplasty of the cervical spine. 2. Multilevel degenerative changes of the cervical spine with mild spinal canal stenosis at C5-C6. 3. C6-C7 mild right neural foraminal narrowing. 4. C7-T1 severe spinal canal stenosis with severe bilateral neural foraminal narrowing. 5. Atrophy with intramedullary signal abnormality of the cervical spinal cord at C3-C4, compatible with posttraumatic wallerian degeneration. 6. Septated intramedullary cyst within the cervical spinal cord measuring 4 x 3 x 3 mm at the level of C1-C2, this also may represent posttraumatic wallerian degeneration. 7. Postoperative seroma with dimensions, as described above. SL: [id number] Spine Spine Clinical Indication: C2 fracture with cervical stabilization, follow-up assessment 02/14 - [facility] cervical wo cervical - [place] contrast CT contrast CT Comparison: [id number] Read by: Antionette Flores DO Dictated Date/time: 02/16/18 15:17 Technique: Multi-detector CT imaging of the cervical spine is performed. Coronal and sagittal reconstructions were obtained. Electronically Signed by: Antionette Flores DO 02/16/18 15:[address] Radiation Dose DLP 574.27 mGy-cm FINDINGS: ALIGNMENT AND GENERAL ASSESSMENT: There is stable alignment of the cervical spine. There is stable position to the nondisplaced type II dens fracture. There are no acute fractures or subluxations. The c raniocervical junction is normal. The atlanto-dental alignment appears unremarkable. Occiput -- C4 posterior fusion and C1-C3 posterior decompression changes are again seen. Right lateral posterior fusi on of C6-C7 with intervening laminectomy is noted. Nondisplaced fracture of the left lamina of C7 extending into spinous process is unchanged. Nondisplaced fracture of the left C6 lamina is unchanged. DISK SPACES: C2-C3: There is no significant disc bulging. There is moderate right and mild left uncovertebral spurring causing moderate right foraminal stenosis. There is no spinal canal or left foraminal stenosis. C3-C4: Postsurgical changes noted. Residual endplate spurring and facet hypertrophy cause severe right and moderate left foraminal stenosis but no spinal stenosis. C4-C5: Post surgical changes noted. Residual endplate spurring and ossification of posterior longitudinal ligament causes moderate right and mild left foraminal stenosis but no spinal stenosis. C5-C6: There is mild circumferential disc/osteophyte complex. Mild facet hypertrophy. No spinal stenosis and mild bilateral foraminal stenosis. C6-C7: Post surgical changes noted. There is mild residual disc/osteophyte complex and facet hypertrophy causing mild spinal stenosis, moderate right and mild left foraminal stenosis. C7-T1: There is right laminectomy present. There is moderate residual circumferential disc/osteophyte complex and mild facet hypertrophy. There is moderate to severe spinal stenosis, severe right and moderate left foraminal stenosis. VISUALIZED LUNG APICES AND SOFT TISSUES: Visualized lung apices are clear. The prevertebral soft tissues are normal. No atherosclerotic calcification is noted to the carotid bulbs and proximal internal carotid arteries. Thyroid gland is unremarkable. CT myelogram or MRI of the cervical spine may be performed, if there is further concern. IMPRESSION: Stable posttraumatic, postsurgical and degenerative changes as above. SL: [id number] Spine Spine EXAM: XR CERVICAL SPINE 2 VIEWS 02/06 - [facility] cervical 2 cervical - [place] 3 view or 3 view DX This report was dictated by a Jet Aircraft Servicer/Fellow. I have personally reviewed the images as DX well as the Resident's interpretation and agree with the findings. DATE: 02/06/2018 1:59 PM CDT Read by: Walter Little MD Resident: Walter Little MD Dictated Date/time: 02/06/18 14:40 Electronically Signed by: Dex Ren MD 02/07/18 09:12 FINAL REPORT INDICATION: - APT W/DR. DOYLE 02/06/18 @ 1:30P / S12.100A Unspecified displaced fracture of second cervical vertebra, initial encounter for closed fracture COMPARISON: C-spine x-rays from 01/01/2018. TECHNIQUE: AP and lateral views of the cervical spine FINDINGS: Again seen is the craniocervical fusion. Right-sided laminoplasty is noted at C6 and C7. Alignment of these elements is maintained without periapical lucencies to suggest infection or hardware. Multilevel degenerative changes are seen in the cervical spine in the form of marginal osteophytes and disc space narrowing. IMPRESSION: 1. Maintained alignment of the posterior cervical fusion hardware. 2. Moderate multilevel degenerative changes in the C-spine. 3. Known dens fracture is not well evaluated on this study. CHEM PANEL Magnesium 2.2 mg/dL 1.8 - 2.4 01/06 [facility] Lv CHEM PANEL Phosphorus 4.0 mg/dL 2.5 - 4.5 01/06 [facility] ELECTROLYTE AGAP 20.3 meq/L 10.0 - 01/06 [facility] S 20.0 ELECTROLYTE eGFR 129 01/06 Result Comment: The eGFR is calculated using the CKD-EPI formula. In most young, healthy individuals the eGFR will be > 90 mL/min/1.73m2. The eGFR declines with age. An eGFR of 60-89 may be normal in [facility] S mL/min/1. some populations, particularly the elderly, for whom the CKD-EPI formula has not been extensively validated. Use of the eGFR is not recommended in the following populations: 3m2 Individuals with unstable creatinine concentrations, including patients and those with serious co-morbid conditions. Patients with extremes in muscle mass or diet. The data above are obtained from the National Kidney Disease Education Program (NKDEP) which additionally recommends that when the eGFR is used in patients with extremes of body mass index for purposes of drug dosing, the eGFR should be multiplied by the estimated BMI. ELECTROLYTE Calcium Lvl 9.2 mg/dL 8.5 - 10.5 01/06 [facility] S ELECTROLYTE CO2 24 meq/L 24 - 32 01/06 [facility] ELECTROLYTE Chloride Lvl 101 meq/L 95 - 109 01/06 [facility] ELECTROLYTE Creatinine 0.45 mg/dL 0.50 - 01/06 [facility] S Lvl 1.40 ELECTROLYTE BUN 12 mg/dL 7 - 22 01/06 [facility] ELECTROLYTE Glucose Lvl 76 mg/dL 70 - 99 01/06 [facility] ELECTROLYTE Potassium 4.3 meq/L 3.5 - 5.1 01/06 [facility] Lvl ELECTROLYTE Sodium Lvl 141 meq/L 135 - 145 01/06 [facility] HEMATOLOGY MPV 10.0 fL 7.4 - 10.4 05/14 [facility] /2017 HEMATOLOGY MCV 87.0 fL 80.0 - 01/06 [facility] 94.0 /2017 HEMATOLOGY Hct 36.2 % 42.0 - 01/06 [facility] 54.0 /2017 HEMATOLOGY MCH 29.4 pg 27.0 - 01/06 [facility] 31.0 /2017 HEMATOLOGY MCHC 33.8 g/dL 32.0 - 01/06 [facility] 36.0 HEMATOLOGY Hgb 12.2 g/dL 14.0 - 01/06 [facility] 18.0 /2017 HEMATOLOGY RDW 18.1 % 11.5 - 01/06 [facility] 14. HEMATOLOGY Platelet 252 K/CMM 133 - 450 01/06 [facility] /2017 HEMATOLOGY RBC 4.16 M/CMM 4.70 - 01/06 [facility] 6.10 HEMATOLOGY WBC 5.3 K/CMM 3.7 - 10.4 01/06 [facility] /2017 HEMATOLOGY Lymphocytes 26.6 % 20.0 - 01/06 [facility] 40.0 /2017 HEMATOLOGY Monocytes 11.2 % 2.0 - 12.0 01/06 [facility] /2017 HEMATOLOGY Segs 61.0 % 45.0 - 01/06 [facility] 75.0 HEMATOLOGY Basophils # 0.0 K/CMM 0.0 - 0.2 01/06 [facility] /2017 HEMATOLOGY Eosinophils 0.1 K/CMM 0.0 - 0.5 01/06 [facility] # /2017 HEMATOLOGY Lymphocytes 1.4 K/CMM 1.0 - 5.5 01/06 [facility] # /2017 HEMATOLOGY Segs-Bands # 3.2 K/CMM 1.5 - 8.1 01/06 [facility] /2017 HEMATOLOGY Eosinophils 1.2 % 0.0 - 4.0 01/06 [facility] /2017 HEMATOLOGY Basophils 0.0 % 0.0 - 1.0 01/06 [facility] /2017 HEMATOLOGY Monocytes # 0.6 K/CMM 0.0 - 0.8 01/06 [facility] /2017 Spine Spine Patient Name: HALINA ANGEL. 01/01 - [facility] cervical 2 cervical - or 3 view or 3 view DX : 1965; Age: 52 years y/o; Male. DX MR: [id number]. Read by: Todd Coppola MD Dictated Date/time: 01/02/18 08:04 Ordering Physician: Starr Villegas MD. Electronically Signed by : Todd Coppola MD 01/02/18 08:08 FINAL REPORT Cervical spine 2 views. HISTORY: Status post cervical spine surgery. COMPARISON: Cervical spine x-ray 11/21/2017. FINDINGS: Frontal and lateral views of cervical spine were obtained. Previously noted C2-C4 bipedicle screws and interconnecting rods are unchanged. There has been interval placement of an occipital fixation device connecting to previous upper cervical spinal hardware. T here has also been interval placement of fixation devices along the posterior element of C6 and C7. Posterior midline neck skin renita noted. Cervical vertebral bodies are normal in height without compression fracture or spondylolisthesis. Moderate to marked marginal osteophyte formation is unchanged. C1-C2 articulation is intact on the later al view. Moderate C2-C3, moderate to marked C3-C4, mild to moderate C5-C6 disc space narrowing are unchanged. Prevertebral soft tissue is unremarkable. IMPRESSION: Interval cervical spine surgery as described. Stable degenerative changes of cervical spine without evidence of fracture or spondylolisthesis. SL: [id number] CHEM PANEL Magnesium 2.1 mg/dL 1.8 - 2.4 12/30 [facility] Lvl CHEM PANEL Phosphorus 4.1 mg/dL 2.5 - 4.5 12/30 [facility] /2018 ELECTROLYTE AGAP 15.2 meq/L 10.0 - 12/30 [facility] S 20.0 /2017 ELECTROLYTE eGFR 126 12/30 Result Comment: The eGFR is calculated using the CKD-EPI formula. In most young, healthy individuals the eGFR will be > 90 mL/min/1.73m2. The eGFR declines with age. An eGFR of 60-89 may be normal in [facility] S mL/min/1.7 /2018 some populations, particularly the elderly, for whom the CKD-EPI formula has not been extensively validated. Use of the eGFR is not recommended in the following populations: 3m2 Individuals with unstable creatinine concentrations, including patients and those with serious co-morbid conditions. Patients with extremes in muscle mass or diet. The data above are obtained from the National Kidney Disease Education Program (NKDEP) which additionally recommends that when the eGFR is used in patients with extremes of body mass index for purposes of drug dosing, the eGFR should be multiplied by the estimated BMI. ELECTROLYTE Chloride Lvl 102 meq/L 95 - 109 12/30 [facility] ELECTROLYTE CO2 26 meq/L 24 - 32 12/30 [facility] ELECTROLYTE Calcium Lvl 9.2 mg/dL 8.5 - 10.5 12/30 [facility] ELECTROLYTE Glucose Lvl 77 mg/dL 70 - 99 12/30 [facility] ELECTROLYTE Creatinine 0.47 mg/dL 0.50 - 12/30 [facility] S Lvl 1.40 ELECTROLYTE BUN 13 mg/dL 7 - 22 12/30 [facility] ELECTROLYTE Sodium Lvl 139 meq/L 135 - 145 12/30 [facility] ELECTROLYTE Potassium 4.2 meq/L 3.5 - 5.1 12/30 [facility] S Lvl HEMATOLOGY Platelet 258 K/CMM 133 - 450 12/30 [facility] HEMATOLOGY MPV 9.5 fL 7.4 - 10.4 12/30 [facility] HEMATOLOGY RDW 18.7 % 11.5 - 12/30 [facility] 14.5 HEMATOLOGY MCV 86.8 fL 80.0 - 12/30 [facility] 94.0 HEMATOLOGY Hct 34.7 % 42.0 - 12/30 [facility] 54.0 HEMATOLOGY RBC 4.00 M/CMM 4.70 - 12/30 [facility] 6.10 HEMATOLOGY Hgb 11.5 g/dL 14.0 - 12/30 [facility] 18.0 HEMATOLOGY MCHC 33.1 g/dL 32.0 - 12/30 [facility] 36.0 HEMATOLOGY MCH 28.7 pg 27.0 - 12/30 [facility] 31.0 HEMATOLOGY WBC 6.2 K/CMM 3.7 - 10.4 12/30 [facility] HEMATOLOGY Basophils # 0.0 K/CMM 0.0 - 0.2 12/30 [facility] HEMATOLOGY Segs-Bands # 3.8 K/CMM 1.5 - 8.1 12/30 [facility] HEMATOLOGY Lymphocytes 1.6 K/CMM 1.0 - 5.5 12/30 [facility] # HEMATOLOGY Monocytes # 0.7 K/CMM 0.0 - 0.8 12/30 [facility] HEMATOLOGY Basophils 0.1 % 0.0 - 1.0 12/30 [facility] HEMATOLOGY Eosinophils 0.1 K/CMM 0.0 - 0.5 12/30 [facility] HEMATOLOGY Eosinophils 2.2 % 0.0 - 4.0 12/30 [facility] HEMATOLOGY Monocytes 10.5 % 2.0 - 12.0 12/30 [facility] HEMATOLOGY Lymphocytes 26.1 % 20.0 - 12/30 [facility] 40.0 HEMATOLOGY Segs 61.1 % 45.0 - 12/30 [facility] 75.0 Abdomen AP Abdomen AP Abdomen AP DX, 12/25/2017 10:45 AM CDT 12/25 - [facility] DX - HISTORY: - neurogenic bowel, eval for constipation Read by: Cuba Gomez MD Dictated Date/time: 12/25/17 11:15 Electronically Signed by: Cuba Gomez 12/25/17 11:16 FINAL REPORT COMPARISON: 12/21/2017 FINDINGS: Bowel gas pattern is nonobstructed. There is a large amount stool within the colon vertically right and transverse colon. Calcifications in the right upper quadrant consistent with cholelithia sis. There is apparent ankylosis of the bilateral cingulate joints joints with flowing midline thoracolumbar osteophyte consistent with changes of ankylosing spondylitis. Bilateral hip arthroplasties. IMPRESSION: 1. Large amount stool consistent with constipation. 2. Cholelithiasis. 3. Ankylosing spondylitis. SL: [id number] CHEM PANEL Magnesium 2.4 mg/dL 1.8 - 2.4 12/21 [facility] CHEM PANEL Phosphorus 5.2 mg/dL 2.5 - 4.5 12/21 [facility] CHEM PANEL eGFR 125 12/21 Result Comment: The eGFR is calculated using the CKD-EPI formula. In most young, healthy individuals the eGFR will be >90 mL/ min/1.73m2. The eGFR declines with age. An eGFR of 60-89 may be normal in [facility] mL/min/1 some populations, particularly the elderly, for whom the CKD-EPI formula has not been extensively validated. Use of the eGFR is not recommended in the following populations: 3m2 Individuals with unstable creatinine concentrations, including patients and those with serious co-morbid conditions. Patients with extremes in muscle mass or diet. The data above are obtained from the National Kidney Disease Education Program (NKDEP) which additionally recommends that when the eGFR is used in patients with extremes of body mass index for purposes of drug dosing, the eGFR should be multiplied by the estimated BMI. CHEM PANEL Bili Total 0.5 mg/dL 0.2 - 1.3 12/21 [facility] CHEM PANEL Albumin Lvl 3.0 g/dL 3.5 - 5.0 12/21 [facility] CHEM PANEL ALT 22 unit/L 0 - 65 12/21 [facility] CHEM PANEL Alk Phos 98 unit/L 39 - 136 12/21 [facility] CHEM PANEL AST 17 unit/L 0 - 37 12/21 [facility] CHEM PANEL Chloride Lvl 99 meq/L 95 - 109 12/21 [facility] CHEM PANEL CO2 31 meq/L 24 - 32 12/21 [facility] CHEM PANEL Calcium Lvl 8.9 mg/dL 8.5 - 10.5 12/21 [facility] CHEM PANEL Total 6.9 g/dL 6.4 - 8.4 12/21 R CHEM PANEL Glucose Lvl 89 mg/dL 70 - 99 12/21 [facility] CHEM PANEL Creatinine 0.48 mg/dL 0.50 - 12/21 [facility] Lvl 1.40 CHEM PANEL Sodium Lvl 138 meq/L 135 - 145 12/21 [facility] CHEM PANEL BUN 18 mg/dL 7 - 22 12/21 [facility] CHEM PANEL Potassium 4.3 meq/L 3.5 - 5.1 12/21 [facility] Lvl CHEM PANEL B/C Ratio 38 6 - 25 12/21 [facility] CHEM PANEL Globulin 3.9 g/dL 2.7 - 4.2 12/21 [facility] CHEM PANEL A/G Ratio 0.8 0.7 - 1.6 12/21 [facility] CHEM PANEL AGAP 12.3 meq/L 10.0 - 12/21 [facility] 20.0 HEMATOLOGY Segs-Bands # 5.2 K/CMM 1.5 - 8.1 12/21 [facility] HEMATOLOGY Basophils 0.4 % 0.0 - 1.0 12/21 [facility] HEMATOLOGY Eosinophils 1.3 % 0.0 - 4.0 12/21 [facility] HEMATOLOGY Monocytes 12.0 % 2.0 - 12.0 12/21 [facility] HEMATOLOGY Anisocyte 1+ None Seen 12/21 [facility] *ABN* (12/21/17 6:42 AM) HEMATOLOGY Monocytes # 0.9 K/CMM 0.0 - 0.8 12/21 [facility] HEMATOLOGY Lymphocytes 1.4 K/CMM 1.0 - 5.5 12/21 [facility] HEMATOLOGY Eosinophils 0.1 K/CMM 0.0 - 0.5 12/21 [facility] HEMATOLOGY Lymphocytes 18.6 % 20.0 - 12/21 [facility] 40.0 HEMATOLOGY Segs 67.7 % 45.0 - 12/21 [facility] 75.0 HEMATOLOGY Platelet 265 K/CMM 133 - 450 12/21 [facility] HEMATOLOGY MPV 9.0 fL 7.4 - 10.4 12/21 [facility] HEMATOLOGY RBC 4.23 M/CMM 4.70 - 12/21 [facility] 6.10 HEMATOLOGY RDW 21.2 % 11.5 - 12/21 [facility] 14.5 HEMATOLOGY MCHC 33.0 g/dL 32.0 - 12/21 [facility] 36.0 HEMATOLOGY MCH 28.7 pg 27.0 - 12/21 [facility] 31.0 HEMATOLOGY MCV 87.2 fL 80.0 - 12/21 [facility] 94.0 HEMATOLOGY Hgb 12.2 g/dL 14.0 - 12/21 [facility] 18.0 HEMATOLOGY Hct 36.9 % 42.0 - 12/21 [facility] 54.0 HEMATOLOGY WBC 7.7 K/CMM 3.7 - 10.4 12/21 [facility] IMMUNOLOGY Prealbumin 16.5 mg/dL 18.0 - 12/21 [facility] 45.0 LIPIDS CHD Risk 4.36 4.00 - 12/21 [facility] 7.30 LIPIDS VLDL 21 12/21 [facility] LIPIDS LDL 110 mg/dL <=99 mg/dL 12/21 [facility] (Calculated) LIPIDS Trig 107 mg/dL <=149 12/21 [facility] mg/dL LIPIDS Chol 170 mg/dL <=199 12/21 [facility] mg/dL LIPIDS HDL 39 mg/dL >=61 mg/dL 12/21 [facility] SPECIAL Hgb A1C 5.1 % <=5.6 % 12/21 [facility] CHEMISTRY URINE AND UA <=1.0 0.1 - 1.0 12/21 [facility] STOOL Urobilinogen mg/dL URINE AND UA Sq Epi None Seen 12/21 [facility] STOOL URINE AND UA Amorph Occasional None Seen 12/21 [facility] STOOL Rody /HPF /HPF URINE AND UA Protein Negative Negative 12/21 [facility] STOOL mg/dL mg/dL URINE AND UA pH 6.5 5.0 - 8.0 12/21 [facility] STOOL URINE AND UA Leuk Est Negative Negative 12/21 [facility] STOOL (12/21/17 6:42 AM) URINE AND UA Nitrite Negative Negative 12/21 [facility] STOOL (12/21/17 6:42 AM) URINE AND UA Blood Negative Negative 12/21 [facility] STOOL (12/21/17 6:42 AM) URINE AND UA Ketones Negative Negative 12/21 [facility] STOOL mg/dL mg/dL URINE AND UA Glucose Negative Negative 12/21 [facility] STOOL mg/dL mg/dL URINE AND UA Bili Negative Negative 12/21 [facility] STOOL *NA* (12/21/17 6:42 AM) URINE AND UA RBC null 0 - 2 12/21 [facility] STOOL URINE AND UA Bacteria Occasional None Seen 12/21 [facility] STOOL /HPF /HPF URINE AND UA Mucus Few /LPF None Seen 12/21 [facility] STOOL /LPF URINE AND UA Turbidity Clear Clear 12/21 [facility] STOOL (12/21/17 6:42 AM) URINE AND UA Color Yellow Yellow 12/21 [facility] STOOL *NA* (12/21/17 6:42 AM) URINE AND UA Spec Grav 1.015 <=1.030 12/21 [facility] STOOL Abdomen AP Abdomen AP Procedure: Abdominal Radiograph. 12/21 [facility] DX DX - Clinical Indication: Constipation. Read by: Kimani Tovar MD Dictated Date/time: 12/21/17 10:21 Electronically Signed by: Kimani Tovar MD 12/21/17 10:24 FINAL REPORT Comparison: None. FINDINGS: A supine radiograph of the abdomen in 2 views demonstrates gaseous distention of the right hemicolon. There is moderate retained fecal matter throughout the colon. Amorphous calcification is n oted in the right upper quadrant of uncertain etiology. Degenerative change involves the lumbar spine including possible diffuse idiopathic skeletal hyperostosis. The patient has had previous bilateral hip replacements. IMPRESSION: 1. Gaseous distention of the right hemicolon with moderate retained fecal matter throughout the colon. 2. Amorphous calcification the right upper quadrant. SL:[id number] Chest 2 Chest 2 PROCEDURE: Chest Radiograph. 12/21 [facility] views DX views DX - Clinical Indication: Recent C-spine fracture from a fall. Read by: Kimani Tovar MD Dictated Date/time: 12/21/17 10:16 Electronically Signed by: Kimani Tovar MD 12/21/17 10:18 FINAL REPORT Comparison: Chest radiograph 12/14/2017. FINDINGS: The chest shows normal lung volumes without interstitial or airspace opacities, pleural effusions or pneumothorax. The heart size and pulmonary vasculature are normal. The trachea is midline. Postsurgical change involves the cervical spine. IMPRESSION: 1. No chest radiographic evidence of acute cardiopulmonary disease. SL:[id number] Spine Spine EXAM: CT CERVICAL SPINE WITHOUT CONTRAST 12/17 [facility] cervical wo cervical - Medical contrast CT contrast CT Center DATE: 12/17/2017 at 2:32 PM Read by: Anthony Little MD Dictated Date/time: 12/17/17 15:16 Electronically Signed by: Anthony Little MD 12/17/17 15:36 FINAL REPORT INDICATION: 52 years old Male patient with history of post-op scan. COMPARISON: CT Scan of the cervical spine dated 09/19/2017, MRI of the cervical spine dated 12/14/2017 TECHNIQUE: Volumetric CT acquisition of the cervical spine without contrast. Computer reformatted coronal and sagittal images are also provided. Axial images are available in both bone and soft tissue algorithm. FINDINGS: Since prior MRI dated 09/19/2017, patient has underwent partial laminectomy at C1 and C2 with Posterior fusion hardware extending from the suboccipital to the level of C2, new from prior study. Stable appearance of the posterior fusion hardware from C2 to C4. Partial right-sided laminotomy at th e level of C6 and C7, new from prior study. Drainage catheter is placed at the laminectomy site at the level of C3. There are stable degenerative/erosive changes at the dens of the C2. Multilevel degenerative changes extending from C2 to the level of C7-T1 has not significant change causing multilevel neural foramina stenosis predominantly at the level of C6-C7 and C7-T1. IMPRESSION: 1.Since prior study, interval superior extension of posterior fusion hardware to the level of subocciput and right-sided laminotomy at the level of C6 \\T\\ C7. 2. Stable appearance of erosive changes at the level of the dens of the C2. 3. Otherwise no interval significant change in multilevel degenerative changes from prior study. Spine Spine EXAM: MRI CERVICAL SPINE WITHOUT CONTRAST 12/14 - [facility] cervical - Medical contrast contrast MRI Center MRI DATE: 12/14/2017 6:25 AM CDT Read by: Ko Marsh Dictated Date/time: 12/14/17 09:53 Electronically Signed by: Ko Marsh 12/14/17 10:40 FINAL REPORT INDICATION: - C2 fx COMPARISON: MRI of the cervical spine from October 20, 2017 TECHNIQUE: Multiplanar, multisequence noncontrast MR imaging of the cervical spine. IV contrast: None. FINDINGS: Since the previous examination, an area of T2 hyperintensity has developed in the spinal cord at the level of C1/C2, site where the spinal canal is narrowed by thinning which compresses on the spinal cord. Postsurgical changes of transpedicular screw and rafaela fixation spanning from C2 through C4 with no evidence of complications. An area of myelomalacia is also present at C3-C4. Disc desiccation is seen throughout the cervical spine. Moderate spinal canal stenosis seen at C1-C2 due to ligamentum flavum thickening. Moderate spinal canal stenosis is noted at C5-C6 and C6-C7 to the presence of spur and disc complexes and ligamentum flavum thickening, worse at C7-T1. Right-sided neural foraminal narrowing is seen at C7-T1. IMPRESSION: 1. Area of myelomalacia/edema is now present at the 1/C2 seen as a focal area of increased signal which was not present. Spinal canal is narrowed at this level due to the prominence of the ligamentum flavum. 2. Area of myelomalacia seen at C3-C4 unchanged. 3. Spinal canal stenosis of the lower cervical spine spanning from C5-6 through C7-T1, worse at the latter secondary to spondylosis and spondyloarthrosis. 4. Moderate to severe neural foraminal narrowing on the right at C7-T1. These findings were discussed with the ER the time of dictation. Brain-Outsi Brain-Outsid EXAM: CT BRAIN WITHOUT CONTRAST 12/14 - [facility] Consult e Consult CT /2017 - [facility] DATE: 12/14/2017 6:11 AM CDT Read by: Ko Marsh Dictated Date/time: 12/14/17 07:58 Electronically Signed by: Ko Marsh 12/14/17 08:03 FINAL REPORT INDICATION: Second read outside study 52-year-old male with trauma. COMPARISON: Not available TECHNIQUE: Routine axial CT images of the brain were obtained IV contrast: None. FINDINGS: Non-contrast images of the head demonstrate no edema, hemorrhage, mass lesion or other acute intracranial abnormality. The brain has normal attenuation and wooten-white matter distinction. The ventricles are normal. The basal cisterns and sulci are normal in size. A scalp hematoma is seen in the right temporal region. No underlying fractures are seen. The paranasal sinuses, orbits and mastoids are unremarkable. IMPRESSION: Normal CT of the brain without contrast. I agree with the outside read Spine Spine EXAM: XR CERVICAL SPINE 2 VIEWS 11/21 - [facility] cervical 2 cervical - [place] 3 view or 3 view DX DX DATE: 11/21/2017 1:27 PM CDT Read by: Dex Ren MD Dictated Date/time: 11/21/17 13:49 Electronically Signed by: Dex Ren MD 11/21/17 13:53 FINAL REPORT INDICATION: - APT W/DR. DOYLE 11/21/17 @ 1:15P;M45.2 Ankylosing spondylitis of cervical region COMPARISON: Cervical spine series 10/10/2017 TECHNIQUE: AP and lateral radiographs of the cervical spine show from the skull base through C7. DISCUSSION: Cervical collar is removed. Unchanged, satisfactory alignment cervical spine. Straightening of cervical spine again noted. Type II dens fracture not radiographically visible. Vertebral body heights are maintained. Unchanged ankylosis of the subaxial cervical spine with flowing anterior and posterior osteophytes at C2-C7. Severe facet arthropathy and partial ankylosis of the facet joints unchanged. Unchanged, satisfactory appearance of posterior spinal fusion at C2-4. Laminectomies at C3 and C4 again noted. IMPRESSION: 1. Unchanged, satisfactory alignment the cervical spine. Type II dens fracture not radiographically visible. 2. Unchanged severe spondylosis with partial ankylosis of the subaxial cervical spine. 3. Unchanged, satisfactory appearance of posterior spinal fusion at C2-4. Spine Spine EXAM: XR CERVICAL SPINE 2 VIEWS 10/10 - [facility] cervical 2 cervical - [place] or 3 view or 3 view DX DX DATE: 10/10/2017 1:53 PM CLINICAL ASSOCIATE Read by: Camilla Hernandez MD Dictated Date/time: 10/10/17 14:40 Electronically Signed by: Camilla Hernandez MD 10/10/17 14:41 FINAL REPORT INDICATION: - APT W/DR. DOYLE 10/10/17 @ 2:00P;M47.12 Other spondylosis with myelopathy, cervical region COMPARISON: Radiograph dated June 01, 2015 TECHNIQUE: AP and lateral views of the cervical spine FINDINGS: Posterior fusion hardware again visualized C2-C4. Alignment is adequate. No hardware complication or signs of failure. Diffuse ankylosis of the entire cervical spine again visualized. IMPRESSION: Adequate alignment of the posterior fusion hardware and cervical spine . No new abnormality compared to prior study. ELECTROLYTE AGAP 10.5 meq/L 10.0 - 09/19 [facility] 20.0 [facility] ELECTROLYTE eGFR 112 09/19 Result Comment: The eGFR is calculated using the CKD-EPI formula. In most young, healthy individuals the eGFR will be > 90 mL/min/1.73m2. The eGFR declines with age. An eGFR of 60-89 may be normal in [facility] mL/min/1.7 /2018 some populations, particularly the elderly, for whom the CKD-EPI formula has not been extensively validated. Use of the eGFR is not recommended in the following populations: [address] Individuals with unstable creatinine concentrations, including patients and those with serious co-morbid conditions. Patients with extremes in muscle mass or diet. The data above are obtained from the National Kidney Disease Education Program (NKDEP) which additionally recommends that when the eGFR is used in patients with extremes of body mass index for purposes of drug dosing, the eGFR should be multiplied by the estimated BMI. ELECTROLYTE BUN 15 mg/dL 7 - 22 09/[address] ELECTROLYTE CO2 28 meq/L 24 - 32 09/[address] ELECTROLYTE Potassium 4.5 meq/L 3.5 - 5.1 09/19 [facility] [address] [place] [address] ELECTROLYTE Creatinine 0.64 mg/dL 0.50 - 09/19 [facility] Lvl 1.40 [facility] ELECTROLYTE Sodium Lvl 135 meq/L 135 - 145 09/[address] ELECTROLYTE Glucose Lvl 97 mg/dL 70 - 99 09/[address] ELECTROLYTE Calcium Lvl 8.9 mg/dL 8.5 - 10.5 09/[address] ELECTROLYTE Chloride Lvl 101 meq/L 95 - 109 09/[address] HEMATOLOGY Monocytes # 0.6 K/CMM 0.0 - 0.8 09/[address] HEMATOLOGY Lymphocytes 1.6 K/CMM 1.0 - 5.5 09/19 [facility] # 2017 [facility] HEMATOLOGY Segs-Bands # 5.0 K/CMM 1.5 - 8.1 09/[address] HEMATOLOGY Basophils 0.4 % 0.0 - 1.0 09/[address] HEMATOLOGY Eosinophils 0.6 % 0.0 - 4.0 09/[address] HEMATOLOGY Monocytes 7.9 % 2.0 - 12.0 09/[address] HEMATOLOGY Lymphocytes 22.2 % 20.0 - 09/19 [place] 40.0 [facility] HEMATOLOGY Segs 68.9 % 45.0 - 09/19 [facility] 75.0 [facility] HEMATOLOGY INR 0.91 0.85 - 09/19 [facility] 1.17 [facility] HEMATOLOGY PTT 30.4 s 22.9 - 09/19 [place] 35.8 [facility] HEMATOLOGY PT 12.3 s 12.0 - 09/19 [facility] 14.7 /2017 [facility] HEMATOLOGY MPV 8.2 fL 7.4 - 10.4 09/19 [facility]2017 [facility] HEMATOLOGY Platelet 274 K/CMM 133 - 450 09/19 [facility]2017 [facility] HEMATOLOGY Hct 40.7 % 42.0 - 09/19 [facility] 54.0 /2017 [facility] HEMATOLOGY Hgb 13.2 g/dL 14.0 - 09/19 [facility] 18.0 [facility] HEMATOLOGY RBC 4.73 M/CMM 4.70 - 09/19 [facility] 6.10 [facility] HEMATOLOGY WBC 7.3 K/CMM 3.7 - 10.4 09/19 [facility] HEMATOLOGY MCHC 32.4 g/dL 32.0 - 09/19 [facility] 36.0 [facility] HEMATOLOGY RDW 15.2 % 11.5 - 09/19 [facility] 14.5 [facility] HEMATOLOGY MCH 27.9 pg 27.0 - 09/19 [facility] 31.0 [facility] HEMATOLOGY MCV 86.2 fL 80.0 - 09/19 [facility] 94.0 [facility] Spine Spine EXAM: MRI CERVICAL SPINE WITHOUT CONTRAST 09/19 - [facility] cervical wo cervical - [facility] contrast contrast MRI Center MRI DATE: 09/19/2017 435 PM CLINICAL ASSOCIATE Read by: Anthony Little MD Dictated Date/time: 09/19/17 23:49 Electronically Signed by: Anthony Little MD 09/20/17 00:04 FINAL REPORT INDICATION: 52 years old Male patient with history of paresthesias. COMPARISON: CT scan of the cervical spine dated 09/19/2017 at 11:00 AM TECHNIQUE: Multiplanar, multisequence noncontrast MR imaging of the cervical spine. FINDINGS: Again identified are erosive changes at the tip of the odontoid with mild edema in the inferior half of the C2. Mild edematous changes of the anterior inferior aspect of the C7 otherwise no significant bone marrow abnormality in the remaining visualized cervical spine. Straightening of the cervical spine otherwise no evidence of subluxation or dislocation. Again identified are changes of DISH. Vertebral body heights are grossly preserved. Changes of posterior cervical spine fusion from C2 to C4 and C3, C4 laminectomies. Craniovertebral junction appears unremarkable. Cerebellar tonsils are normal in position. Questionable subtle cord signal abnormality at the level of C7-T1 from moderate to severe spinal canal narrowing. A remaining cord appears unremarkable. Prevertebral and paravertebral soft tissue appear unremarkable. Disc level analysis as follows: C2-C3: Degenerative disc desiccation with minimal loss of the disc height. Minimal posterior disc bulge. There is no significant spinal canal stenosis. Moderate to severe right and [id number] left neural foramina narrowing from uncovertebral and facet joint hypertrophy. C3-C4: Degenerative disc desiccation with severe loss of the disc height. There is no significant spinal canal stenosis. Moderate to severe right and moderate left neural foramina narrowing from uncovertebral and facet joint hypertrophy. C4-C5: Degenerative disc desiccation with minimal loss of the disc height. There is no significant spinal canal stenosis. Bilateral moderate neural foramina narrowing from uncovertebral and facet joint hypertrophy. C5-C6: Degenerative disc desiccation with minimal loss of the disc height. Posterior disc osteophyte complex with minimal spinal canal stenosis with residual thecal sac measures 8 mm in AP dimension. Bi lateral mild neural foramina stenosis from uncovertebral and facet joint hypertrophy. C6-C7: Degenerative disc desiccation with preservation of the disc height. Posterior disc osteophyte complex and ligamentum flavum buckling resulted in moderate spinal canal stenosis with residual theca l sac measures 6.5 mm with effacement of the ventral as well as dorsal subarachnoid fluid spaces. No significant remodeling or cord signal abnormality. Severe right and moderate left neural foramina juan rowing from uncovertebral and facet joint hypertrophy. C7-T1: Degenerative disc desiccation with preservation of the disc height. Posterior disc osteophyte complex and ligamentum flavum buckling resulted in severe spinal canal stenosis with complete effacem ent of the subarachnoid fluid spaces, cord flattening and questionable cord edema. Severe right and moderate left neural foramina narrowing from uncovertebral and facet joint hypertrophy. IMPRESSION: 1. Posterior disc osteophyte complex and ligamentum flavum buckling resulted in significant spinal canal stenosis greater at C7-T1 than C6-C7 resulted in complete effacement of the subarachnoid fluid sp aces, cord flattening and questionable cord edema at the level of C7-T1. 2. Multilevel significant neural foramina stenosis from uncovertebral and facet joint hypertrophy as detailed above. 3. Persistent erosive changes at the tip of the odontoid with mild edema in the inferior half of the C2. Spine Spine EXAM: CT CERVICAL SPINE WITHOUT CONTRAST 09/19 - [place] cervical wo cervical - Medical contrast CT contrast CT This report was dictated by a [employer] Servicer/Fellow. I have personally reviewed the images as Center (ER) (ER) well as the Resident's interpretation and agree with the findings. DATE: 09/19/2017 10:43 AM CLINICAL ASSOCIATE Read by: Sasha Patton MD Resident: Sasha Patton MD Dictated Date/time: 09/19/17 11:05 Electronically Signed by: Temo Fontaine MD 09/19/17 11:42 FINAL REPORT INDICATION: Hx of surgery, s/p fall COMPARISON: Spine cervical radiograph 06/01/2015 TECHNIQUE: Volumetric acquisition of the cervical spine without contrast. Axial, sagittal and coronal reconstructions. IV contrast: None. DLP: 533 mGy-cm UT SECTION: ER FINDINGS: The spine is imaged from the skull base to the level of T3. Previous posterior fixation of C2-C4 with bilateral pillar screws and interconnecting rods. The hardware is intact without evidence of loosening.Straightening of the cervical spine. Multilevel anterior bridging osteophytes/anterior longitudinal ligament ossification is noted representing changes of diffuse idiopathic skeletal hyperostosis. Discontinuities of the flowing anterior os teophytes/anterior longitudinal ligament ossification at C6-7 and C7-T1 without associated prevertebral soft tissue prominence/edema is likely chronic. 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 Chronic cystic/erosive changes are visualized at the odontoid with a transverse lucency through the base of the odontoid which may represent an age indeterminate fracture or erosive change. There is mi ld tilt of the odontoid to vertex the right lateral mass of atlas which is likely chronic. Note made of fusion of the uncovertebral joints and some of the facet joints. The pre and paravertebral soft tissues are within normal limits. There is no apical pneumothorax. Severe right C1-C2 facet hypertrophy is noted. IMPRESSION: 1. Chronic cystic/erosive changes at the tip of the odontoid. There is a transverse lucency through the odontoid base which may represent an age indeterminate fracture or could be related to chronic cys tic/erosive change. Recommend clinical correlation and correlation with prior imaging if available. MRI may be recommended for further evaluation, as clinically indicated. 2. Changes of diffuse idiopathic skeletal hyperostosis with apparent discontinuity in the flowing anterior bridging osteophytes/anterior longitudinal ligament ossification at C6-7 and C7-T1 levels witho ut associated prevertebral soft tissue prominence/edema, is probably chronic. 3. Congenital fusion of bilateral atlantooccipital joints. 4. Posterior C2-C4 fixation hardware is intact without signs of loosening. The findings are discussed with Ms. Urbano of on 09/19/2017 at 1141 hours Spine Spine EXAM: XR CERVICAL SPINE 2 VIEWS 06/01 - [facility] cervical 2 cervical - [place] or 3 view or 3 view DX This report was dictated by a [employer] Servicer/Fellow. I have personally reviewed the images as DX well as the Resident's interpretation and agree with the findings. DATE: 06/01/2015 at 0950 hours Read by: Richie Cortez MD Resident: Richie Cortez MD Dictated Date/time: 06/01/15 10:33 Electronically Signed by: Mariely Hoffmann MD 06/01/15 18:02 FINAL REPORT INDICATION: Pain with radiculopathy COMPARISON: None TECHNIQUE: AP and lateral radiographs of the cervical spine show from the skull base through C7. FINDINGS: There has been posterior fixation C2-C4, and C3-C4 laminectomy with bilateral pillar screws and interconnecting rods. Nonspecific rounded lucencies in the region of the tips at the C3 and C4 s crews may be projectional. There is straightening of the cervical spine. Multilevel anterior and posterior bridging osteophytes are seen. No acute fracture or other acute abnormality is seen. The prevertebral soft tissues are normal. IMPRESSION: 1. Satisfactory alignment of cervical spine after posterior fixation and laminectomy of C2-C4. Small lucencies at the tips of the C3 and C4 screws are nonspecific and may be projectional. 2. Multilevel anterior and posterior bridging osteophytes Vital Signs Vital Sign Value Date Comments Source Systolic (mm Hg) 125 03/17/2018 [facility] Diastolic (mm Hg) 83 03/17/2018 [facility] Heart Rate 93 03/17/2018 [facility] Systolic (mm Hg) 127 03/12/2018 [facility] Diastolic (mm Hg) 89 03/12/2018 [facility] Heart Rate 89 03/10/2018 [facility] Systolic (mm Hg) 130 03/10/2018 [facility] Diastolic (mm Hg) 86 03/10/2018 [facility] Heart Rate 82 03/05/2018 [facility] Systolic (mm Hg) 123 03/05/2018 [facility] Diastolic (mm Hg) 82 03/05/2018 [facility] Respitory Rate 20 03/05/2018 [facility] Height 160.02 cm 03/05/2018 [facility] Heart Rate 81 03/03/2018 [facility] Systolic (mm Hg) 124 02/12/2018 [facility] Diastolic (mm Hg) 76 02/12/2018 [facility] Heart Rate 73 02/10/2018 [facility] Systolic (mm Hg) 117 02/10/2018 [facility] Diastolic (mm Hg) 78 02/10/2018 [facility] Weight 76.364 02/06/2018 [facility] BMI Calculated 29.82 02/06/2018 [facility] Height 160.02 cm 02/06/2018 [facility] Temperature Oral (F) 98.2 F 02/06/2018 [facility] Heart Rate 60 02/06/2018 [facility] Systolic (mm Hg) 121 02/06/2018 [facility] Diastolic (mm Hg) 70 02/06/2018 [facility] Systolic (mm Hg) 127 02/03/2018 [facility] Diastolic (mm Hg) 89 02/03/2018 [facility] Heart Rate 91 01/29/2018 [facility] Heart Rate 80 01/27/2018 [facility] Respitory Rate 18 01/08/2018 [facility] Heart Rate 68 01/08/2018 [facility] Systolic (mm Hg) 100 01/08/2018 [facility] Diastolic (mm Hg) 68 01/08/2018 [facility] Diastolic (mm Hg) 70 01/08/2018 [facility] Systolic (mm Hg) 114 01/08/2018 [facility] Respitory Rate 18 01/08/2018 [facility] Heart Rate 81 01/08/2018 [facility] Diastolic (mm Hg) 71 01/07/2018 [facility] Systolic (mm Hg) 127 01/07/2018 [facility] Respitory Rate 18 01/07/2018 [facility] Heart Rate 75 01/07/2018 [facility] Height 160.02 cm 12/23/2017 [facility] Temperature Oral (F) 97.7 F 12/22/2017 [facility] Temperature Oral (F) 97.6 F 12/21/2017 [facility] Temperature Oral (F) 97.4 F 12/21/2017 [facility] BMI Calculated 29.36 12/20/2017 [facility] Weight 75.182 12/20/2017 [facility] Height 160.02 cm 12/20/2017 [facility] BMI Calculated 29.47 11/21/2017 [facility] Weight 75.455 11/21/2017 [facility] Height 160.02 cm 11/21/2017 [facility] Systolic (mm Hg) 142 11/21/2017 [facility] Diastolic (mm Hg) 99 11/21/2017 [facility] Heart Rate 111 11/21/2017 [facility] Temperature Oral (F) 98 F 11/21/2017 [facility] Height 160.02 cm 10/10/2017 [facility] BMI Calculated 29.11 10/10/2017 [facility] Weight 74.545 10/10/2017 [facility] Heart Rate 81 10/10/2017 [facility] Temperature Oral (F) 98.1 F 10/10/2017 [facility] Systolic (mm Hg) 130 10/10/2017 [facility] Diastolic (mm Hg) 81 10/10/2017 [facility] Systolic (mm Hg) 130 09/20/2017 [facility] Diastolic (mm Hg) 82 09/20/2017 [facility] Respitory Rate 16 09/20/2017 [facility] Heart Rate 60 09/20/2017 [facility] Temperature Oral (F) 97.9 F 09/20/2017 [facility] Heart Rate 78 09/20/2017 [facility] Systolic (mm Hg) 121 09/20/2017 [facility] Diastolic (mm Hg) 80 09/20/2017 [facility] Respitory Rate 16 09/20/2017 [facility] Temperature Oral (F) 97.9 F 09/20/2017 [facility] Systolic (mm Hg) 130 09/19/2017 [facility] Diastolic (mm Hg) 80 09/19/2017 [facility] Heart Rate 72 09/19/2017 [facility] Temperature Oral (F) 98.1 F 09/19/2017 [facility] Respitory Rate 18 09/19/2017 [facility] Weight 77.273 09/19/2017 [facility] BMI Calculated 30.18 09/19/2017 [facility] Height 160.02 cm 09/19/2017 [facility] Weight 159.2 03/17/2015 [facility] Height 63 03/17/2015 [facility] Temperature Oral (F) 97.3 F 03/17/2015 [facility] Heart Rate 113 03/17/2015 [facility] Systolic (mm Hg) 153 03/17/2015 [facility] Diastolic (mm Hg) 88 03/17/2015 [facility] Weight 165.0 01/05/2015 [facility] Height 63 01/05/2015 [facility] Temperature Oral (F) 97.0 F 01/05/2015 [facility] Heart Rate 100 01/05/2015 [facility] Systolic (mm Hg) 134 01/05/2015 [facility] Diastolic (mm Hg) 88 01/05/2015 [facility] Respitory Rate 16 01/05/2015 [facility] Weight 166 12/13/2014 [facility] Height 60 12/13/2014 [facility] Temperature Oral (F) 98.5 F 12/13/2014 [facility] Respitory Rate 16 12/13/2014 [facility] Heart Rate 78 12/13/2014 [facility] Systolic (mm Hg) 130 12/13/2014 [facility] Diastolic (mm Hg) 78 12/13/2014 [facility] Weight 166.8 11/24/2014 [facility] Height 60 11/24/2014 [facility] Temperature Oral (F) 97.7 F 11/24/2014 [facility] Heart Rate 90 11/24/2014 [facility] Systolic (mm Hg) 147 11/24/2014 [facility] Diastolic (mm Hg) 91 11/24/2014 [facility] Encounters Location Location Encounter Encounter Reason Attending ADM DC Status Source Details Type Number For Provider Date Date Visit [facility] [id number] Osvaldo 11/24 11/24 [facility] 209 Jaskaran CURRY /2014 [facility] [id number] Osvaldo 12/13 12/13 [facility] 1980 Jaskaran CURRY /2014 [facility] [id number] Osvaldo 01/05 01/05 [facility] 8740 Jaskaran CURRY /2014 [facility] [id number] Osvaldo 03/17 03/17 [facility] 0230 Jaskaran CURRY /2014 [facility] Outpatient [id number] SILVIO 06/01 [facility] [place] [facility] Diag [id number] Silvio 06/01 06/02 [facility] Doyle /2014 [place] [facility] [place] Outpatient [id number] SILVIO 06/23 [facility] [place] Outpatient [id number] SILVIO 09/22 [facility] [place] [facility] [id number] Silvio 05/27 05/28 [facility] Doyle Jr /2016 [facility] [place] [facility] [id number] SILVIO 05/30 [facility] [place] [facility] Phone [id number] 09/18 09/20 [facility] Message /2017 [facility] [id number] [place] 09/19 09/20 [facility] [place] Sen /2017 [facility]patient [id number] [facility]ILVIO 10/10 [facility] [id number] Silvio 10/10 10/11 [facility] Doyle Jr /2017 [facility] [place] Outpatient [id number] Sacha 10/10 10/11 [facility] Kre /2017 [facility] Phone [id number] 11/19 11/21 [facility] Message /2017 [facility] Outpatient [id number] SILVIO 11/21 [facility] [place] [facility]patient [id number] Silvio 11/21 11/22 [facility] [place] Jr /2017 [facility] Outpt Diag [id number] Silvio 11/21 11/22 [facility] Doyle Jr /2017 [place] [facility] [place] [facility] Phone [id number] 11/21 11/23 [facility] Message /2017 [facility] Phone [id number] 12/03 12/05 [facility] Message /2017 [facility] Phone [id number] 12/03 12/05 [facility] Message /2017 [facility] Phone [id number] 12/04 12/06 [facility] Message /2017 [facility] Phone [id number] 12/04 12/06 [facility] Message /2017 [facility] Inpatient [id number] Kalp[place] 12/20 01/08 [facility] [place] /2017 [place] [facility] Phone [id number] 12/27 12/29 [facility] Message /2017 [facility] Phone [id number] 01/02 01/04 [facility] Message /2017 [facility] Phone [id number] 01/10 01/12 [facility] Message /2017 [facility] Tots [id number] Imer 01/17 02/16 [facility] Julio /2017 [place] [facility] Phone [id number] 01/21 01/23 [facility] Message /2017 [facility] Outpatient [id number] SILVIO 02/06 [facility] /2017 [place] [facility] Outpatient [id number] Silvio 02/06 02/07 [facility] Jr /2017 [facility] Outpt Diag [id number] Silvio 02/06 02/07 [facility] Doyle Jr /2017 [place] [facility] Outpt Diag [id number] Silvio 02/14 02/15 [facility] Doyle Jr /2017 [place] [facility] [place] [facility] Tots [id number] Imer 02/17 03/19 [facility] Julio /2017 [place] [facility] Outpatient [id number] Steve 03/05 03/06 [facility] /2017 [place] [facility] [id number] SILVIO 03/20 [facility] [place] [facility]patient [id number] SILVIO 06/19 [facility] [place] Procedures Procedure Code Date Perfomer Comments Source C2-4 [id number] 11/29/2014 Osvaldo [facility] PSF<sup>1</sup> MD Jaskaran C2-4 [id number] 11/29/2014 Osvaldo [facility] PSF<sup>1</sup> MD Jaskaran [address] [id number] 11/29/2014 Osvaldo [facility] PSF<sup>1</sup> MD Jaskaran [address] [id number] 11/29/2014 Osvaldo [facility] PSF<sup>1</sup> MD Jaskaran C24 [id number] 11/29/2014 Osvaldo [facility] PSF<sup>1</sup> MD Jaskaran [place] Hip replacement [id number] [facility] Operation [id number] [facility] Hip replacement [id number] [facility] [place] Operation [id number] [facility] [place] Hip replacement [id number] [facility] [place] Operation [id number] [facility] [place] Hip replacement [id number] [facility] Operation [id number] [facility] Hip replacement [id number] [facility] [id number] [facility]
--- OUTSIDE RECORDS SUMMARY | 2018-08-20 09:20 | XMS REPORT | Continuity of Care Document ---
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 24, 2014 Active ANKYLOSING SPONDYLITIS Nov 24, 2014 Active CERVICAL DISC DISORDER W/MYELOPAT Nov 24, 2014 Active SPINAL STENOSIS OF CERVICAL REGION Nov 24, 2014 Active CERVICAL RADICULOPATHY Nov 24, 2014 Active [place] Nov 24, 2014 Active Procedures Date Description Comments Nov 22, 2014 smoking status never smoker Nov 24, 2014 smoking status Never smoker Dec 13, 2014 smoking status Never smoker Vital Signs Date Description Test Result Nov 24, 2014 weight E&M - 3141-9 WEIGHT 166.8 lb Nov 24, 2014 height E&M - 8302-2 HEIGHT 60 in Nov 24, 2014 temperature E&M TEMPERATURE 97.7 deg f Nov 24, 2014 pulse rate E&M - 8867-4 PULSE RATE 90 /min Nov 24, 2014 blood pressure, systolic - 8480-6 BP SYSTOLIC 147 mm Hg Nov 24, 2014 blood pressure, diastolic - 8462-4 BP DIASTOLIC 91 mm Hg Dec 13, 2014 weight E&M - 3141-9 WEIGHT 166 lb Dec 13, 2014 height E&M - 8302-2 HEIGHT 60 in Dec 13, 2014 temperature E&M TEMPERATURE 98.5 deg f Dec 13, 2014 respiratory rate E&M - 9279-1 RESP RATE 16 /min Dec 13, 2014 pulse rate E&M - 8867-4 PULSE RATE 78 /min Dec 13, 2014 blood pressure, systolic - 8480-6 BP SYSTOLIC 130 mm Hg Dec 13, 2014 blood pressure, diastolic - 8462-4 BP DIASTOLIC 78 mm Hg
--- OUTSIDE RECORDS SUMMARY | 2018-08-20 09:20 | XMS REPORT | Continuity of Care Document ---
:1965 Author Organization [facility] Care Team Providers Name Role Phone Jaskaran CURRY, Osvaldo Braswell Unavailable Insurance Providers Payer name Policy type / Coverage Policy ID Covered alliance party ID Policy [place] Encounters Encounter Performer Location Date Office Visit Osvaldo Jessica MD [facility] [place] Problems Problem Effective Dates Problem Status [...] Nov 24, 2014 smoking status Never smoker Vital Signs [...]
--- OUTSIDE RECORDS SUMMARY | 2018-08-20 09:20 | XMS REPORT | Continuity of Care Document ---
:1965 Author Organization [facility] Care Team Providers Name Role Phone Jaskaran CURRY, Osvaldo Braswell Unavailable Insurance Providers Payer name Policy type / Coverage Policy ID Covered green party ID Policy [place] Encounters Encounter Performer Location Date Office Visit Osvaldo Jessica MD [facility] [place] Mar 17, 2015 Problems Problem Effective Dates Problem Status CERVICAL SPONDYLOSIS WITH MYELOPATHY Nov 24, 2014 Active ANKYLOSING SPONDYLITIS Nov 24, 2014 Active CERVICAL DISC DISORDER W/MYELOPAT Nov 24, 2014 Active SPINAL STENOSIS OF CERVICAL REGION Nov 24, 2014 Active CERVICAL RADICULOPATHY Nov 24, 2014 Active [place] Nov 24, 2014 Active LUMBAR RADICULOPATHY Mar 17, 2015 Active LUMBAR HNP Mar 17, 2015 Active Procedures Date Description Comments Nov 22, 2014 smoking status never smoker Nov 24, 2014 smoking status Never smoker Dec 13, 2014 smoking status Never smoker January 05, 2015 smoking status Never smoker Mar 17, 2015 smoking status Never smoker Medications Medication Instructions Start Date Status NORCO 10-325 MG TABS 1-2 tabs po q4-6h prn pain January 05, 2015 Inactive DIAZEPAM 5 MG TABS 1 tab po q8h prn muscle spasms January 05, 2015 Inactive LYRICA 75 MG CAPS 1 cap po tid January 05, 2015 Inactive DIAZEPAM 5 MG TABS 1 tab po q8h prn muscle spasms Feb 04, 2015 Inactive TYLENOL WITH CODEINE #3 300-30 1 tab po q6h prn pain Feb 04, 2015 Inactive MG TABS LYRICA 75 MG CAPS 1 cap po bid Feb 04, 2015 Inactive TYLENOL WITH CODEINE #3 300-30 take 1-2 tablets every 6 hours Mar 08, 2015 Active MG TABS as needed for pain Vital Signs Date Description Test Result Nov [...] - 8462-4 BP DIASTOLIC 78 mm Hg January 05, 2015 weight E&M - 3141-9 WEIGHT 165.0 lb January 05, 2015 height E&M - 8302-2 HEIGHT 63 in January 05, 2015 temperature E&M TEMPERATURE 97.0 deg f January 05, 2015 pulse rate E&M - 8867-4 PULSE RATE 100 /min January 05, 2015 blood pressure, systolic - 8480-6 BP SYSTOLIC 134 mm Hg January 05, 2015 blood pressure, diastolic - 8462-4 BP DIASTOLIC 88 mm Hg January 05, 2015 respiratory rate E&M - 9279-1 RESP RATE 16 /min Mar 17, 2015 weight E&M - 3141-9 WEIGHT 159.2 lb Mar 17, 2015 height E&M - 8302-2 HEIGHT 63 in Mar 17, 2015 temperature E&M TEMPERATURE 97.3 deg f Mar 17, 2015 pulse rate E&M - 8867-4 PULSE RATE 113 /min Mar 17, 2015 blood pressure, systolic - 8480-6 BP SYSTOLIC 153 mm Hg Mar 17, 2015 blood pressure, diastolic - 8462-4 BP DIASTOLIC 88 mm Hg
--- OUTSIDE RECORDS SUMMARY | 2018-08-20 09:20 | XMS REPORT | Continuity of Care Document ---
[...] [facility] [place] 05, 2015 Problems Problem Effective Dates Problem Status [...] January 05, 2015 smoking status Never smoker Medications Medication Instructions Start Date Status NORCO 10-325 MG TABS 1-2 tabs po q4-6h prn pain January 05, 2015 Active DIAZEPAM 5 MG TABS 1 tab po q8h prn muscle spasms January 05, 2015 Active LYRICA 75 MG CAPS 1 cap po tid January 05, 2015 Active Vital Signs Date Description Test Result Nov [...]
[2018-08-20] MEDS ORDERED: SUCCINYLCHOLINE 20 MG/ML (10 ML) IV ONE (10:28)
[2018-08-20] MEDS ORDERED: PROPOFOL 200 MG/20 ML VIAL IV ONE (10:31)
[2018-08-20] MEDS ORDERED: MIDAZOLAM HCL 2 MG/2 ML INJ ONE (10:32)
[2018-08-20] MEDS ORDERED: GLYCOPYRROLATE 0.2 MG/ML SYR ONE (10:32)
[2018-08-20] MEDS ORDERED: FENTANYL CITR 250 MCG/5 ML ONE (10:33)
[2018-08-20] MEDS ORDERED: LIDOCAINE 2% MPF 5 ML VIAL ONE (10:33)
[2018-08-20] MEDS ORDERED: ROCURONIUM 50 MG/5 ML VIAL IV ONE (10:36)
[2018-08-20] MEDS ORDERED: NEOSTIGMINE 1 MG/ML -5 ML SYRINGE ONE (10:36)
[2018-08-20] MEDS ORDERED: TRANEXAMIC ACID 1,000 MG in NA CHLORIDE 0.9% 50 ML IV SCH (11:00)
[2018-08-20] MEDS ORDERED: EPHEDRINE SULF 50 MG/10 ML SYR ONE (11:52)
--- NOTE | 2018-08-20 13:41 | RAD REPORT ---
EXAM DESCRIPTION: RAD - Hip Left 1 View - 08/20/2018 1:32 pm CLINICAL HISTORY: HARDWEAR PLACEMENT COMPARISON: Hip Left 2 View dated 07/29/2018; Aspiration Shoulder Hip Knee dated 08/13/2018 FINDINGS: Intraoperative single projection of left hip is submitted. Hardware is in place in expecte d alignment and positioning. Femoral head component not yet placed.
[2018-08-20] MEDS ORDERED: FENTANYL CITR 100 MCG/2 ML ONE (13:47)
--- NOTE | 2018-08-20 14:36 | P.BOP ---
Preoperative diagnosis: probable aseptic loosening left acetabulum after ALBIN Postoperative diagnosis: same Primary procedure: revision left acetabular component Estimated blood loss: 200 ccs Specimen: sent (-) for PMN's and bacteria x2, CX sent Anesthesia: General Complications: None Drain(s): MOIRA drain Transferred to: Recovery Room Condition: Good
[2018-08-20] MEDS: MEPERIDINE HCL 50 MG/ML AMP ONE ×4 (14:51→15:14)
[2018-08-20] MEDS ORDERED: NAPROXEN 250 MG TAB PO PRN (15:07)
[2018-08-20] MEDS ORDERED: MORPHINE/NS PCA 50 MG/50 ML PCA.SYRING IV PRN (15:07)
[2018-08-20] MEDS ORDERED: ONDANSETRON 4 MG/2 ML VIAL IV PRN (15:07)
[2018-08-20] MEDS ORDERED: NALOXONE 0.4 MG/ML VIAL IV PRN (15:07)
[2018-08-20 16:37] LABS: Hematocrit 41.5 % (39.6-49.0)
[2018-08-20 17:20] LABS: Hematocrit 41.6 % (39.6-49.0)
[2018-08-20] MEDS: CEFAZOLIN 1GM (PREMIX IV) 1 GM/50 ML BAG IV SCH (18:23)
[2018-08-20 20:22] LABS: Urine Appearance CLEAR; Urine Bilirubin NEGATIVE (NEG); Urine Blood NEGATIVE (NEG); Urine Color YELLOW; Urine Glucose NEGATIVE (NEG); Urine Protein NEGATIVE (NEG); Urine Urobilinogen 0.2 mg/dL (0.2-1.0); Urine pH 5.5 (5.0-7.0)
[2018-08-20] MEDS: HYDROCODONE/APAP 7.5/325 MG TAB PO PRN (20:30)
[2018-08-20] MEDS: PREGABALIN 50 MG CAP PO SCH (20:30)
[2018-08-20 20:46] LABS: Urine Bacteria <20 /HPF (NONE SEEN); Urine Culture Reflex Order NOT NEEDED; Urine RBC NONE SEEN /HPF (NONE SEEN)
[2018-08-20] MEDS: ZOLPIDEM TARTRATE 10 MG TABLET PO SCH (21:00)
[2018-08-20] MEDS ORDERED: HOME MED 1 EA UNK (Pregabalin [Lyrica] 100 MG) PO SCH (21:00)
--- NOTE | 2018-08-20 22:52 | CON ---
Reason For Consult: Medical management. History Of Present Illness: This is a 53-year-old gentleman, history of extensive arthritis and cerv ical spine fusion, was admitted via Surgery electively for scheduled revision of left hip. The patie nt did well, was up, admitted to the floor for observation and Internal Medicine consult requested fo r medical management. Currently, the patient is recovering from the anesthesia medicine, so he is st ill sleepy. He continued to have some pain in his hip. He has no chest pain. No abdominal pain. N o fever or chills. Review of Systems: Otherwise negative. Past Medical History: Significant for cervical spine fusion, arthritis. Past Surgical History: Three years ago, he had a left total hip arthroplasty. Allergies: NONE. Social History: The patient is . He has 3 kids. He works at construction. Does not drink, smoke, use any drugs. Family History: Father of heart attack. Mother of a motor vehicle accident. Medications: At home, Lyrica 100 mg twice a day, Colace as needed mg at nighttime, tofaci tinib citrate 11 mg tablet ER every 24 hours, prednisone 5 mg orally once a day, naproxen 500 mg oral ly twice a day. Review of Systems: The patient denies any fever, chills, night sweats, dizziness, lightheaded, headache, blurred vision. There is no chest pain. No nausea, vomiting. No abdominal pain, change in bowel movement, diarrhe a, constipation, dysuria, frequency, urgency, hematuria. There is no history of depression, anxiety, seizure or stroke. Physical Examination: Vital Signs: Currently, blood pressure is 124/78, pulse 86, temperature 98.7, respiratory rate 18. The patient is saturating 97% on room air. The patient is sleepy actually, but arousable, does not l ook in any distress. HEENT: Atraumatic, normocephalic. PERRLA. Oral mucosa is moist. Neck: Supple. No JVD. No carotid bruits. Chest: Clear to auscultation. Good air entry. Heart: Regular rate and rhythm. S1 and S2 normal. No gallop or murmur. Abdomen: Soft, nontender. No masses. No hepatosplenomegaly. Positive bowel sounds. Extremities: No clubbing, cyanosis, or edema. No calf tenderness. Neurologic: Grossly intact. Cranial nerve exam 2 through 12 intact. Normal sensation. Normal refl exes. Normal muscle strength. Left hip in dressing with drain noted. Laboratory Data: CBC from within normal. Chemistry within normal. No labs today. Assessment And Plan: This is a 53-year-old gentleman, history of severe arthritis, chronic back pain , was admitted electively for left hip revision. 1.Left hip revision, postop day 0 today. Continue pain control as before. 2.Supportive care for pain, nausea if needed. 3.Resume home medication for insomnia. 4.Resume Lyrica for history of neuropathy. 5.Deep vein thrombosis prophylaxis, on Lovenox 40. 6.Postop antibiotic with Keflex q.8 hours. 7.Constipation. Continue Colace 200 mg daily as needed. GLORIA/DAVE Voice ID: [id number] Report ID: [id number]
--- NOTE | 2018-08-21 01:06 | OP ---
Date of Procedure: 08/20/2018 Surgeon: Curt Parker MD Preoperative Diagnosis: Left hip pain after total hip arthroplasty, most consistent with loose aceta bular component. Postoperative Diagnosis: Left hip pain after total hip arthroplasty, most consistent with loose acet abular component. Procedure: Left hip acetabular component revision. Estimated Blood Loss: 200 cc. Complications: There were no complications. Specimens: There is a culture specimen sent as well as a frozen section sent. Drains: MOIRA drain is used. Indications For Operation: Mr. Villarreal is a 53-year-old patient who unfortunately has ankylosing spond ylitis as well as rheumatologic diseases and has undergone bilateral total hip arthroplasties done by myself. The first one of the right side did very well with no problems. The second one did very we ll for a time but he began having pain in the region of the groin. This pain continued despite waiti ng although x-rays appeared to look very good with perhaps only a very slight lucency at the superior aspect of the acetabulum and the acetabulum itself did not appear to be mobile on any of sequential x-rays. A decision was made to move forward with the possibility of loosening. Therefore, bone scan was performed on him about 2 years ago which demonstrated some increased uptake in the acetabulum as opposed to the rest of the prosthesis. It seems he most likely did have loosening, he was sent for an aspiration, unfortunately he did not proceed with a workup. Apparently, he was doing fairly well until he fell sustaining a spinal cord injury and was in rehabilitation again having increasing pain in the region of his groin. He came to see me and again we underwent the same x-rays which continued to show the very small lucency, also a bone scan which demonstrated some increased uptake at the ze tabulum without any increased uptake at the femur. He had an attempted aspiration which did not reve al any fluid. All risks, benefits and alternatives had been discussed with patient and family includ ing the possibility of failure for the revision of the acetabular component to work or even be possib le given the equipment that we have although we will have everything ready. Also the possibility ester t this is stemming from an occult infection, however, we will try to look in to eliminate this possib ility and would send frozen sections. Also discussed that the pain may not even be coming from this area as well as the other risks associated with total hip arthroplasty, especially some with ankylosi s spondylitis including heterotopic ossification, blood clot, injury to nerves or vessels, and disloc ation as well as possibility of femur fracture. They say they understand everything as presented and wish to proceed. Description Of Procedure: The patient was taken to the operating room and placed in supine position. General anesthesia was obtained by the Anesthesia staff using a glide scope. He was then rolled ri [facility] side down. His left lower extremity was then identified and then prepped and draped in usual vianca rile fashion for arthroplasty. The previous incision was then used and extended only slightly superi ly and inferiorly. This was taken down in the plane of scar. This reaches the fascia and the fasc ia was divided. After dividing the fascia, there is some fluid which was expressed. It does lead di rectly down to the hip, perhaps being more of a pseudo capsule. The deep area of this has been sent for culture, both aerobic and anaerobic although I think aerobic is the only which would be helpful. The areas around the hip are then debrided using a rongeur. Soft tissue was sent in 2 different sec tions and this was checked for PMNs as well as bacteria. There were no PMNs or bacteria found in eit her of the frozen sections. The hip was then dislocated and the ceramic head and ball were then amandeep tank. Attention was then turned to the acetabulum. The acetabulum appeared to be in good position. A supple movement of the finger did not elicit any motion. The device for removing the acetabular cu p was then placed and was then rotated with the smaller blade. Once a smaller blade made a near full rotation, a punch was used to attempt to move it in a less vertical position which does allow some m otion. Following this, it was then completely freed with a combination of punch and osteotomes. The acetabulum itself is debrided. There was found to be no purulence. A size 52 acetabular cup is jerry ntified. The size 51 reamer is then placed on reverse to clear any soft tissues or any other issues given good visualization of the bone. It is then reamed up to a size 53. Following this, the new si ze 54 acetabular cup is then hammered into place. This does not appear to have excellent seating alt mian was more or less stable to finger pressure and also appeared to be down with provisional x-ray as well as with visualization of the screw holes. There were 2 screws then placed, both of which do seat the cup a little more, which allows the cup to feel very solid and the screws do appear to be ve ry solid as well. Following this, the liner was then placed and the hip was then relocated with the appropriate size -6 bearing. It was then brought up to full flexion and full adduction without signs of dislocation. The wound was again irrigated and the external rotators were then applied back to th e trochanter via bone tunnels. The wound was again irrigated and the fascia was closed in a watertig ht fashion using heavy Vicryl sutures, followed by closure of skin using Vicryl over a Norberto-Dominguez drain. The skin was then closed using renita, placed in Aquacel dressing which does also secure the drain, awakened and taken to recovery room in good condition. There were no complications. /DAVE Voice ID: [id number] Report ID: [id number]
[2018-08-21] MEDS: CEFAZOLIN 1GM (PREMIX IV) 1 GM/50 ML BAG IV SCH (01:31)
[2018-08-21 04:06] LABS: Absolute Lymphocytes (CBC) 1.1 K/uL (0.7-4.9); Absolute Monocytes 0.7 K/uL (0.1-1.3); Absolute Neutrophil 5.6 K/uL (1.8-8.0); Basophils % 0.5 % (0-1.3); Eosinophils % 0.7 % (0-4.4); Hematocrit 39.4 % (39.6-49.0); Lymphocytes % 14.7 % (15.3-44.8); MPV 9.4 fL (7.6-11.3); Monocytes % 9.9 % (3.3-12.3); RBC Red Blood Cell Count 4.51 M/uL (4.33-5.43)
[2018-08-21] MEDS: HYDROCODONE/APAP 7.5/325 MG TAB PO PRN ×3 (05:30→19:00)
[2018-08-21] MEDS ORDERED: ZOLPIDEM TARTRATE 10 MG TABLET PO SCH (09:00)
[2018-08-21] MEDS: ENOXAPARIN 40 MG/0.4 ML SQ SCH (09:13)
[2018-08-21] MEDS: PREGABALIN 50 MG CAP PO SCH ×2 (09:13→21:48)
[2018-08-21] MEDS: CODEINE 30MG/APAP 300MG TAB PO SCH (09:14)
[2018-08-21] MEDS: DOCUSATE NA/SENNA CONC 1 TAB PO SCH (09:14)
[2018-08-21] MEDS: NAPROXEN 250 MG TAB PO SCH ×2 (14:37→21:47)
--- NOTE | 2018-08-21 21:04 | PN ---
Date of Progress Note: 08/21/2018 Subjective: The patient seen and chart reviewed. Chart reviewed and case discussed with RN. a t the bedside. Treatment plan explained. All questions answered. The patient had hip surgery yester day, not moving too well and complains of pain. The patient also reports some neck pain due to previ ous injury. Medications: List reviewed. Physical Examination: Vital Signs: Temperature 99.3, heart rate 115, blood pressure 112/80, respirations 18, O2 96% on isaiah m air. General: Awake, alert, oriented x3. Some mild distress due to pain. CV: S1, S2. Sinus tachycardia. No murmurs. Respiratory: Moving air well bilaterally. Some diminished breath sounds at the bases. GI: Abdomen is soft, nontender, nondistended. Positive bowel sounds. Extremities: No clubbing, cyanosis, or edema. Musculoskeletal: Left hip total arthroplasty. Incisions are clean, dry, and intact. Neuro: Nonfocal. Laboratory Data: WBC 7.6, hemoglobin and hematocrit 13.2 and 39.4, platelets 159, neutrophils 74%. Wound culture showing no WBCs or organisms. No growth to date. Body fluid is pending. No WBCs. Assessment: 1.Left hip total arthroplasty, postoperative day 1. We will continue pain control. 2.History of neuropathy. We will continue Lyrica. 3.Ankylosing spondylitis. 4.Rheumatoid arthritis. 5.Constipation. Continue Colace. 6.Cough. 7.Gastrointestinal and deep venous thrombosis prophylaxis with Lovenox. Plan: Continue PT as per Surgery. Monitor hemoglobin and hematocrit. We will follow up on wound cu ltures to rule out any source of infection. Currently WBC is normal. No signs of infection. No sig ns of sepsis. SA/MODL Voice ID: [id number] Report ID: [id number]
[2018-08-21] MEDS: ZOLPIDEM TARTRATE 10 MG TABLET PO SCH (21:48)
--- NOTE | 2018-08-22 04:23 | PN ---
Mr. Myers was seen. He is sitting in the bedside chair. His dressing is clean, dry, and intact. He says that his pain is manageable. He says that it feels pretty good. Otherwise he has had a pain l evel of 0 although now it is listed as 4, most likely because he has been moving. Otherwise, his oxy gen saturations were good. Hemoglobin is 13. He is continuing Ancef. I will speak with his nurse r egarding other situations. /DAVE Voice ID: [id number] Report ID: [id number]
[2018-08-22] MEDS: HYDROCODONE/APAP 7.5/325 MG TAB PO PRN ×2 (04:30→15:01)
[2018-08-22 05:51] LABS: Absolute Lymphocytes (CBC) 1.1 K/uL (0.7-4.9); Absolute Monocytes 0.8 K/uL (0.1-1.3); Absolute Neutrophil 5.3 K/uL (1.8-8.0); Basophils % 0.3 % (0-1.3); Eosinophils % 1.2 % (0-4.4); Hematocrit 37.2 % (39.6-49.0); MPV 10.2 fL (7.6-11.3); Monocytes % 11.4 % (3.3-12.3); RBC Red Blood Cell Count 4.28 M/uL (4.33-5.43)
[2018-08-22] MEDS: ENOXAPARIN 40 MG/0.4 ML SQ SCH (08:56)
[2018-08-22] MEDS: NAPROXEN 250 MG TAB PO SCH ×3 (08:56→21:16)
[2018-08-22] MEDS: PREGABALIN 50 MG CAP PO SCH ×2 (08:57→21:16)
[2018-08-22] MEDS: CODEINE 30MG/APAP 300MG TAB PO SCH (08:57)
[2018-08-22] MEDS: DOCUSATE NA/SENNA CONC 1 TAB PO SCH (08:57)
[2018-08-22] MEDS ORDERED: TOFACITINIB CITRATE PO SCH (09:00)
[2018-08-22] MEDS ORDERED: PREDNISOLONE 1 MG PO SCH (09:00)
--- NOTE | 2018-08-22 21:10 | PN ---
Date of Progress Note: 08/22/2018 Subjective: The patient is seen and examined. Chart reviewed and case discussed with RN. The patie nt is doing well with Physical Therapy, has been moving around. Pain is well controlled. Medications: List reviewed. Physical Examination: Vital Signs: Temperature 97, heart rate 86, blood pressure 114/62, respirations 18, and O2 of 94% on room air. General: Awake, alert, and oriented x3, not in any acute distress. Obese male. CV: S1 and S2. No murmurs. Regular rate and rhythm. Peripheral pulses present. Respiratory: Moving air well bilaterally. No wheezing. Gastrointestinal: Abdomen is soft, nontender, and nondistended. Positive bowel sounds. Extremities: No clubbing, cyanosis, or edema. Left hip incision site is clean, dry, and intact. Neurological: Nonfocal. Laboratory Data: WBC 7.3, H and H are 12.7 and 37.2, platelets 184. Wound cultures showing no growt h. Assessment And Plan: A 53-year-old male with, 1.Left hip total arthroplasty, postoperative day #2. 2.Pain is well controlled. The patient is ambulating with Physical Therapy. We will continue with Xarelto for deep venous thrombosis prophylaxis, management as per Dr. Parker. 3.History of neuropathy. Continue Lyrica. 4.Ankylosing spondylitis, stable. 5.Rheumatoid arthritis. Continue NSAIDs. 6.Constipation, improved. Continue Colace. 7.Gastrointestinal and deep venous thrombosis prophylaxis, addressed. Plan: The patient to be released from the hospital by Dr. Parker. His wound cultures are negativ e. WBC count is normal. Very minimal drop in hemoglobin, expected postop. Thank you for allowing us to take care of your patient. SA/MODL Voice ID: [id number] Report ID: [id number]
[2018-08-22] MEDS: ZOLPIDEM TARTRATE 10 MG TABLET PO SCH (21:16)
[2018-08-23 05:17] LABS: Hematocrit 35.2 % (39.6-49.0)
[2018-08-23] MEDS: CODEINE 30MG/APAP 300MG TAB PO SCH (09:54)
[2018-08-23] MEDS: NAPROXEN 250 MG TAB PO SCH ×3 (09:56→20:18)
[2018-08-23] MEDS: PREGABALIN 50 MG CAP PO SCH ×2 (09:56→20:18)
[2018-08-23] MEDS: DOCUSATE NA 100 MG CAP PO PRN (09:56)
[2018-08-23] MEDS: DOCUSATE NA/SENNA CONC 1 TAB PO SCH (09:56)
[2018-08-23] MEDS: ENOXAPARIN 40 MG/0.4 ML SQ SCH (09:57)
[2018-08-23] MEDS: HYDROCODONE/APAP 7.5/325 MG TAB PO PRN ×2 (13:26→18:05)
[2018-08-23] MEDS: ZOLPIDEM TARTRATE 10 MG TABLET PO SCH (20:18)
--- NOTE | 2018-08-23 22:32 | PN ---
Date of Progress Note: 08/23/2018 History: Patient seen and examined. Chart reviewed and case discussed with RN. The patient was ini tially discharged by Dr. Parker. However, patient was then interested in inpatient rehab and ther efore patient was referred to inpatient rehab. Patient's pain is well controlled. Patient denies an y other complaints. No acute events overnight. Medications: List reviewed. Physical Examination: Vital Signs: Temperature 97.1, heart rate 73, blood pressure 119/68, respirations 18, O2 96% on room air. General: Awake, alert, oriented x3, not in any acute distress. Obese male. CV: S1 and S2. Regular rate and rhythm. Peripheral pulses present. Respiratory: Moving air well bilaterally. No wheezing. Gastrointestinal: Abdomen is soft, nontender, nondistended. Positive bowel sounds. Extremities: No clubbing, cyanosis, or edema. Musculoskeletal: Left hip incision site clean, dry, intact. Neuro: Nonfocal. Laboratory Data: H and H are 12 and 35.2. Wound cultures, no growth to date. Assessment And Plan: A 53-year-old male with: 1.Left hip total arthroplasty, postoperative day #3, tolerating pain well, working well with mGaadi. We will continue deep venous thrombosis prophylaxis with Lovenox. Management as per Dr. Parker. 2.Neuropathy. Continue Lyrica. 3.Ankylosing spondylitis, stable. 4.Postoperative anemia, stable. Monitor H and H, transfuse as needed. 5.Rheumatoid arthritis. Continue NSAIDs. 6.Gastrointestinal and deep venous thrombosis prophylaxis addressed. Plan: Discharge to rehab once accepted. /DAVE Voice ID: [id number] Report ID: [id number]
[2018-08-24 05:18] LABS: Hematocrit 33.6 % (39.6-49.0)
[2018-08-24] MEDS: HYDROCODONE/APAP 7.5/325 MG TAB PO PRN ×2 (06:06→22:29)
[2018-08-24] MEDS: ENOXAPARIN 40 MG/0.4 ML SQ SCH (08:23)
[2018-08-24] MEDS: PREGABALIN 50 MG CAP PO SCH ×2 (08:24→20:53)
[2018-08-24] MEDS: NAPROXEN 250 MG TAB PO SCH ×3 (08:25→20:53)
[2018-08-24] MEDS: CODEINE 30MG/APAP 300MG TAB PO SCH (08:26)
[2018-08-24] MEDS: DOCUSATE NA/SENNA CONC 1 TAB PO SCH (08:26)
[2018-08-24] MEDS: DOCUSATE NA 100 MG CAP PO PRN (16:34)
[2018-08-24 19:31] VITALS: BMI 29.2
--- NOTE | 2018-08-24 20:31 | PN ---
Date of Progress Note: 08/24/2018 Subjective: The patient was seen and examined, chart reviewed, and case discussed with RN. The patient doing well, ambulating in the hallways. He has been up in the chair for the majority of the day yesterday. Medication List: Reviewed. Physical Examination: Vital Signs: Temperature 97.9, heart rate 71, blood pressure 106/62, respirations 18, O2 of 94% on room air. General: Awake, alert, oriented, in no acute distress. CV: S1, S2. No murmurs. Respiratory: Moving air well bilaterally. No wheezing. Gastrointestinal: Abdomen is soft, nontender, nondistended. Positive bowel sounds. Extremities: No clubbing, cyanosis, or edema. Musculoskeletal: Left hip incision site clean, dry, intact. Neuro: Nonfocal. Wound cultures, no growth, final. HH stable Assessment: 1. A 53-year-old male with left hip total arthroplasty, postoperative day #4. The patient is doing well. Pain is well controlled. The patient has been ambulating and sitting on the side of the chair. Continue DVT prophylaxis with Lovenox. Management as per Dr. Parker. 2. Neuropathy. Lyrica. 3. Ankylosing spondylitis, stable. 4. Postoperative anemia, likely blood loss anemia. H and H are stable. We will transfuse if less than 7. 5. Rheumatoid arthritis. Continue NSAIDs. 6. Gastrointestinal and deep venous thrombosis prophylaxis has been addressed. Plan: Discharge to inpatient rehab was accepted. We will continue to follow along. DEAN Voice ID: [id number] Report ID: [id number] ASHLEY
[2018-08-24] MEDS: ZOLPIDEM TARTRATE 10 MG TABLET PO SCH (20:53)
[2018-08-25 03:13] VITALS: O2SAT 96
[2018-08-25 04:42] LABS: Hematocrit 32.1 % (39.6-49.0)
[2018-08-25] MEDS: ENOXAPARIN 40 MG/0.4 ML SQ SCH (09:00)
[2018-08-25] MEDS: NAPROXEN 250 MG TAB PO SCH ×2 (09:01→13:32)
[2018-08-25] MEDS: PREGABALIN 50 MG CAP PO SCH (09:01)
[2018-08-25] MEDS: CODEINE 30MG/APAP 300MG TAB PO SCH (09:02)
[2018-08-25] MEDS: DOCUSATE NA/SENNA CONC 1 TAB PO SCH (09:02)
[2018-08-25] MEDS: HYDROCODONE/APAP 7.5/325 MG TAB PO PRN ×2 (10:24→15:49)
[2018-08-25 16:38] VITALS: BP 107/57; TEMP 97.9
--- NOTE | 2018-08-25 16:59 | PN ---
Subjective: The patient was seen and examined, chart reviewed, and case discussed with RN. The serina ent is doing well. No signs of infection. Pain has been well controlled. Ambulating well without d ifficulty using a walker. Medication List: Reviewed. Physical Examination: Vital Signs: Temperature is 97.2, heart rate 76, blood pressure 113/64, respirations 18, O2 92% on r oom air. General: Awake, alert, oriented x3, not in any acute distress. CV: S1, S2. Regular rate and rhythm. Peripheral pulses present. No murmurs. Respiratory: Moving air well bilaterally. No wheezing. Gastrointestinal: Abdomen is soft, nontender, nondistended. Positive bowel sounds. Extremities: No clubbing, cyanosis, or edema. Musculoskeletal: Left hip incision site clean, dry, intact. Neurologic: Nonfocal. Laboratory Data: H and H are 11.1 and 32.1. Assessment And Plan: A 53-year-old male with: 1.Left hip total arthroplasty postop day #5. The patient is doing well. Ambulating with a walker. Pain is well controlled. DVT prophylaxis with Lovenox. Management as per Dr. Parker. 2.Neuropathy. Continue Lyrica. 3.Ankylosing spondylitis, stable. 4.Postoperative anemia secondary to blood loss. H and H are stable. Transfuse if hemoglobin less t murrell 7 or symptomatic. 5.Rheumatoid arthritis. Continue NSAIDs. 6.Gastrointestinal and deep venous thrombosis prophylaxis addressed. Plan: Discharge to inpatient rehab once accepted. We will continue to follow along with you. /DAVE Voice ID: [id number] Report ID: [id number]
== END 2018-08-25 18:10 | disposition home health service (06) | DRG 467 ==
LOC: OR 08:11 → 4TH 14:39
PROVIDERS: ADMIT Orthopaedic Surgery; ATTEND Orthopaedic Surgery
PROC: 0SPE0JZ Removal of Synthetic Substitute from Left Hip Joint, Acetabular Surface, Open Approach (ICD-10-PCS; 2018-08-20)
PROC: 0SRE03A Replacement of Left Hip Joint, Acetabular Surface with Ceramic Synthetic Substitute, Uncemented, Open Approach (ICD-10-PCS; principal; 2018-08-20 09:45)
DX: T84.031A Mechanical loosening of internal left hip prosthetic joint, initial encounter (principal); D62 Acute posthemorrhagic anemia; M45.9 Ankylosing spondylitis of unspecified sites in spine; M06.9 Rheumatoid arthritis, unspecified; K59.00 Constipation, unspecified; G62.9 Polyneuropathy, unspecified; Z98.1 Arthrodesis status
CPT/HCPCS: 36415; 80048; 81001; 85014; 85018; 85025; 86850; 86870; 86900; 86901; 86902; 87070; 87075; 87205; 88305; 88331; 88332; 93005; 97110; 97116; 97163; 97530; J0330; J0690; J1650; J2175; J2250; J2270; J2704; J2710; J3010

== ENCOUNTER 2020-09-07 07:44 | Day surgery (SDC) | payer OTHER ==
--- OUTSIDE RECORDS SUMMARY | 2020-09-07 07:47 | XMS REPORT | Continuity of Care Document ---
:1965 Author Organization [facility] t Address [address] [place] [address] Care Team Providers Name Role Phone Unavailable Unavailable Unavailable Problems Condition Condition Condition Status Onset Resolution Last Treating Co mments Source Name Details Category Date Date Treatment Clinician Date LUMBAR Condition Active 2015-03-17 Mem oria RADICULOPA 03-17 09:40:31 l THY LUMBAR 00:00: Willam RADICULOPA 00 THY Active 03/17/2015 Condition 5 [facility] LUMBAR HNP Condition Active 2015-03-17 Memoria 03-17 09:40:31 l LUMBAR 00:00: [place] HNP 00 Active 03/17/2015 Condition 5 [facility] CERVICAL Condition Active 2015-03-17 M emoria SPONDYLOSI 11-24 09:40:31 l S WITH CERVICAL 00:00: Yamil n MYELOPATHY SPONDYLOSI 00 S WITH MYELOPATHY Active 11/24/2014 Condition 5 [facility] ANKYLOSING Condition Active 2015-03-17 Memoria SPONDYLITI 11-24 09:40:31 l S 00:00: Willma ANKYLOSING 00 SPONDYLITI S Active 11/24/2014 Condition 5 [facility] CERVICAL Condition Active 2015-03-17 M emoria DISC 11-24 09:40:31 l DISORDER CERVICAL 00:00: Herm ye W/MYELOPAT DISC 00 DISORDER W/MYELOPAT Active 11/24/2014 Condition 5 [facility] SPINAL Condition Active 2015-03-17 Mem oria STENOSIS 4- 09:40:31 l OF SPINAL 00:00: [place] CERVICAL STENOSIS 00 REGION OF CERVICAL REGION Active 11/24/2014 Condition 5 [facility] CERVICAL Condition Active 2015-03-17 M emoria RADICULOPA 4- 09:40:31 l THY CERVICAL 00:00: Yamil n RADICULOPA 00 THY Active 11/24/2014 Condition 5 [facility] ATAXIA Condition Active 2015-03-17 Mem oria 4- 09:40:31 l ATAXIA 00:00: [place] 00 Active 11/24/2014 Condition 5 [facility] Allergies, Adverse Reactions, Alerts This patient has no known allergies or adverse reactions. Medications Ordered Filled Start Stop Current Ordering Indication Dosage Frequency Signature Comments Components Source Medication Medication Date Date Medication? Clinician (SIG) Name Name TYLENOL Yes take 1-2 Memori a WITH 7-14 tablets l CODEINE #3 00:00: every 6 Herm ye 300-30 MG 00 hours as TABS needed for pain DIAZEPAM 5 No 1 tab po Mem oria MG TABS 6-12 q8h prn l 00:00: muscle [place] 00 spasms TYLENOL No 1 tab po Memori a WITH 6-12 q6h prn l CODEINE #3 00:00: pain [place] 300-30 MG 00 TABS LYRICA 75 No 1 cap po Jaison yolanda MG CAPS 6-12 bid l 00:00: [place] 00 NORCO No 1-2 tabs Memoria 10-325 MG 5-13 po q4-6h l TABS 00:00: prn pain Willam 00 DIAZEPAM 5 No 1 tab po Mem oria MG TABS 5-13 q8h prn l 00:00: muscle [place] 00 spasms LYRICA 75 Yes 1 cap po Jaison yolanda MG CAPS 5-13 tid l 00:00: Willam 00 LYRICA 75 No 1 cap po Jaison yolanda MG CAPS 5-13 tid l 00:00: Willam 00 Vital Signs Vital Name Observation Time Observation Value Comments Source Weight 2015-03-17 14:40:31 [facility] [place] Height 2015-03-17 14:40:31 [facility] Temperature Oral (F) 2015-03-17 14:40:31 97.3 F [facility] [place] Heart Rate 2015-03-17 14:40:31 [facility] [place] Systolic (mm Hg) 2015-03-17 14:40:31 Jaison rial [place] Diastolic (mm Hg) 2015-03-17 14:40:31 Mem orial [place] Weight 2015-01-05 18:40:20 [facility] [place] Height 2015-01-05 18:40:20 [facility] [place] Temperature Oral (F) 2015-01-05 18:40:20 97.0 F [facility] [place] Heart Rate 2015-01-05 18:40:20 [facility] [place] Systolic (mm Hg) 2015-01-05 18:40:20 Jaison rial [place] Diastolic (mm Hg) 2015-01-05 18:40:20 Mem [facility] [place] Respitory Rate 2015-01-05 18:40:20 [facility] [place] Weight 2014-12-13 14:13:52 [facility] [place] Height 2014-12-13 14:13:52 [facility] Temperature Oral (F) 2014-12-13 14:13:52 98.5 F [facility] [place] Respitory Rate 2014-12-13 14:13:52 Mem[facility] [place] Heart Rate 2014-12-13 14:13:52 [facility] [place] Systolic (mm Hg) 2014-12-13 14:13:52 Jaison rial [place] Diastolic (mm Hg) 2014-12-13 14:13:52 Mem orial [place] Weight 2014-11-24 14:40:21 [facility] [place] Height 2014-11-24 14:40:21 [facility] [place] Temperature Oral (F) 2014-11-24 14:40:21 97.7 F [facility] Heart Rate 2014-11-24 14:40:21 [facility] [place] Systolic (mm Hg) 2014-11-24 14:40:21 Jaison rial [place] Diastolic (mm Hg) 2014-11-24 14:40:21 Mem orial [place] Procedures This patient has no known procedures. Encounters Start End Encounter Admission Attending Care Care Encounter Source Date/Time Date/Time Type Type Clinicians Facility Department ID 2020-08-25 2020-08-25 Outpatient [facility] [id number] [facility] 2020-08-16 2020-08-16 [facility] [id number] [facility] 2020-08-12 2020-08-12 [facility] [id number] [facility] 2020-08-09 2020-08-09 [facility] [id number] [facility] 2020-07-29 2020-07-29 [facility] [id number] [facility] 2020-07-28 2020-07-28 [facility] [id number] [facility] 2020-06-24 2020-06-24 [facility] [id number] [facility] 2020-06-14 2020-06-14 [facility] [id number] [facility] Results This patient has no known results.
--- OUTSIDE RECORDS SUMMARY | 2020-09-07 07:47 | XMS REPORT | Continuity of Care Document ---
:1965 Author Organization Flare [facility] Care Team Providers Name Role Phone Flare Code Unavailable Un available Problems Problem Status Onset Classification Date Comments Sourc e Date Reported LUMBAR Active Condition 03/17/2015 [facility] RADICULOPATHY 5 Neuro LUMBAR HNP Active Condition 03/17/2015 [facility] 5 Neuro CERVICAL Active Condition 03/17/2015 [facility] SPONDYLOSIS WITH 5 Dagoberto ro MYELOPATHY ANKYLOSING Active Condition 03/17/2015 [facility] SPONDYLITIS 5 Neuro CERVICAL DISC Active Condition 03/17/2015 [facility] er DISORDER 5 Neuro W/MYELOPAT SPINAL STENOSIS Active Condition 03/17/2015 Mis mary ellen OF CERVICAL 5 Neuro REGION CERVICAL Active Condition 03/17/2015 [facility] RADICULOPATHY 5 Neuro ATAXIA Active Condition 03/17/2015 [facility] 5 Neuro Medications Medication Details Route Status Patient Ordering Order Source Instructions Provider Date TYLENOL WITH take 1-2 Active 03/08/20 [facility] CODEINE #3 tablets 15 Neuro 300-30 MG TABS every 6 hours as needed for pain DIAZEPAM 5 MG 1 tab po No Longer 02/05/20 [facility] r TABS q8h prn Active 15 Neuro muscle spasms TYLENOL WITH 1 tab po No Longer 02/05/20 [facility] CODEINE #3 q6h prn Active 15 Neuro 300-30 MG TABS pain LYRICA 75 MG 1 cap po No Longer 02/05/20 [facility] CAPS bid Active 15 Neuro NORCO 10-325 1-2 tabs No Longer 01/06/20 [facility] MG TABS po q4-6h Active 15 Neuro prn pain DIAZEPAM 5 MG 1 tab po No Longer 01/06/20 [facility] r TABS q8h prn Active 15 Neuro muscle spasms LYRICA 75 MG 1 cap po Active 01/06/20 [facility] CAPS tid 15 Neuro LYRICA 75 MG 1 cap po No Long[facility] Active 15 Neuro Allergies, Adverse Reactions, Alerts No Known Medication Allergies Immunizations No Data Provided for This Section Results No Data Provided for This Section Pathology Reports No Data Provided for This Section Diagnostic Reports No Data Provided for This Section Consultation Notes No Data Provided for This Section Discharge Summaries No Data Provided for This Section History and Physicals No Data Provided for This Section Vital Signs Vital Sign Value Date Comments Source Weight 159.2 03/17/2015 [facility] Height 63 03/17/2015 [facility] Temperature Oral (F) 97.3 F 03/17/2015 [facility] Neuro Heart Rate 113 03/17/2015 [facility] Systolic (mm Hg) 153 03/17/2015 [facility] Dagoberto ro Diastolic (mm Hg) 88 03/17/2015 [facility] Ne uro Weight 165.0 01/05/2015 [facility] Neuro Height 63 01/05/2015 [facility] Neuro Temperature Oral (F) 97.0 F 01/05/2015 [facility] Neuro Heart Rate 100 01/05/2015 [facility] Neuro Systolic (mm Hg) 134 01/05/2015 [facility] Dagoberto ro Diastolic (mm Hg) 88 01/05/2015 [facility] Ne uro Respitory Rate 16 01/05/2015 [facility] Neuro Weight 166 12/13/2014 [facility] Neuro Height 60 12/13/2014 [facility] Neuro Temperature Oral (F) 98.5 F 12/13/2014 [facility] Neuro Respitory Rate 16 12/13/2014 [facility] Neuro Heart Rate 78 12/13/2014 [facility] Neuro Systolic (mm Hg) 130 12/13/2014 [facility] Dagoberto ro Diastolic (mm Hg) 78 12/13/2014 [facility] Ne uro Weight 166.8 11/24/2014 [facility] Neuro Height 60 11/24/2014 [facility] Neuro Temperature Oral (F) 97.7 F 11/24/2014 [facility] Neuro Heart Rate 90 11/24/2014 [facility] Neuro Systolic (mm Hg) 147 11/24/2014 [facility] Dagoberto ro Diastolic (mm Hg) 91 11/24/2014 [facility] Ne uro Encounters Location Location Encounter Encounter Reason Attending ADM NV Stat Source Details Type Number For Provider Date Date Visit [facility] [id number] Osvaldo 11/24 11/24 [facility] r[facility] Neuro[facility] Visit 0 Jaskaran CURRY /2014 Neuro [facility] [id number] Osvaldo 12/13 12/13 [facility] Neuroscience Visit 1980 Jaskaran CURRY /2014 Neuro [facility] [id number] Osvaldo 01/05 01/05 Mi r[facility] Neuroscience Visit 8740 Jaskaran CURRY /2014 Neuro [facility] [id number] Osvaldo 03/17 03/17 Mi r[facility] Neuroscience Visit 0230 Jaskaran CURRY /2014 Neuro [facility] Procedures No Data Provided for This Section Assessment and Plan No Data Provided for This Section Plan of Care No Data Provided for This Section Social History No Data Provided for This Section Family History No Data Provided for This Section Advance Directives No Data Provided for This Section Functional Status No Data Provided for This Section
--- OUTSIDE RECORDS SUMMARY | 2020-09-07 07:48 | XMS REPORT ---
:1965 Author Organization [facility] Address 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 5119490 spondylitis of multiple sites in spine Problem Primary insomnia F51.01 Active 9669514 ALLERGIES No Known Allergies ENCOUNTERS from 1965 to 2020-08-29 Encounter Location Date Provider Diagnosis [facility] [address] [facility] Jul, Ron Little Abn ormal findings on Family Medicine 200 [facility] [place] [address] urinary organs R93.49 and Ventral her jay without obstruc tion or gangrene K43 .9 IMMUNIZATIONS Vaccine Route Administration Date Status Afluria single dose IM Intramuscular Jun 14, 2020 Administere d Afluria single dose Unknown Jun 06, 2017 Administered SOCIAL HISTORY Tobacco Use: Social History Observation Description Date Details (start date - stop date) Never Smoker Sex Assigned At : Social History Observation Description Sex Assigned At Unknown Alcohol Screen Question Answer Notes Did you have a drink containing alcohol in the past year? No Points 0 Interpretation Negative Tobacco Use/Smoking Question Answer Notes Are you a never smoker REASON FOR REFERRAL No Information VITAL SIGNS No information MEDICATIONS Medication SIG (Take, Route, Frequency, Notes Start Date End Mike e Status Duration) Meloxicam 15 MG 1 tablet Orally Once a day for Active 90 days Gabapentin 600 MG 1 capsule Orally Three times a Active day for 90 days Trazodone HCl 100 MG 1 tablet at bedtime Orally Once Active a day for 90 days Omeprazole 20 MG 1 tablet 30 minutes before Active morning meal Orally Once a day for 90 days PROCEDURES No Information RESULTS No Results REASON FOR VISIT CT Abd/Pelvic MEDICAL (GENERAL) HISTORY Type Description Date Surgical History Hip replacement 2017 Surgical History Neck- Arthritis Goals Section No Information Health Concerns No Information MEDICAL EQUIPMENT No Information MENTAL STATUS No Information FUNCTIONAL STATUS No Information ASSESSMENTS Encounter Date Diagnosis Assessment Notes Treatment Notes Treatm ent Clinical Notes Jul, Abnormal findings on diagnostic imaging of urinary organs (ICD-10 - R93.49) Jul, Ventral hernia without obstruction or gangrene (ICD-10 - K43.9) PLAN OF TREATMENT Medication Medication Name Sig Start Date Stop Date Meloxicam 15 MG 1 tablet Orally Once a day for 90 days Trazodone HCl 100 MG 1 tablet at bedtime Orally Once a day for 90 days Omeprazole 20 MG 1 tablet 30 minutes before morning meal Orally Once a day for 90 days Gabapentin 600 MG 1 capsule Orally Three times a day for 90 days Next Appt Details Provider Name:Ron Little, 2020-09-22 10:00:00 AM, [address], [place], [address], Provider Name:Ron Little, 2020-09-22 10:00:00 AM, [address], [place], [address], Provider Name:Ron Little, 2020-09-22 10:00:00 AM, [address], [place], [address], Insurance Providers Payer Name Payer Address Payer Insured Patient Coverage Cover age End Phone Name Relationship to Start Date Mike e Insured [employer] [address] [address] [phone] Myers self 2020 [employer] [place] [address] [phone]
--- OUTSIDE RECORDS SUMMARY | 2020-09-07 07:48 | XMS REPORT ---
:1965 Author Organization [facility] Address [address] [place] [address] Care Team Providers Name Role Phone Ron Little Unavailable [phone] PROBLEMS Type Condition ICD9-CM [id number] Onset Condition SNOMED Code Notes Code Code Dates Status Problem Chronic pain G89.4 Active 421263619 syndrome Problem Diverticulosis K57.90 Active 519166256 Problem Peripheral G62.9 Active 86842331 polyneuropathy Problem GERD without K21.9 Active 952701177 esophagitis Problem Ankylosing M45.0 Active 9825544 spondylitis of multiple sites in spine Problem Primary insomnia F51.01 Active 4819430 ALLERGIES No Known Allergies ENCOUNTERS from 1965 to 2020-08-15 Encounter Location Date Provider Diagnosis [facility] [address] [facility] [address] Jul, 2020 [place] [address] IMMUNIZATIONS Vaccine Route Administration Date Status Afluria [...] RESULTS No Results REASON FOR VISIT CT pre-cert transfer MEDICAL (GENERAL) HISTORY Type Description Date Surgical History Hip replacement 2017 Surgical History Neck- Arthritis Goals Section No Information Health Concerns No Information MEDICAL EQUIPMENT No Information MENTAL STATUS No Information FUNCTIONAL STATUS No Information ASSESSMENTS No Information PLAN OF TREATMENT Medication Medication Name Sig [...] 10:00:00 AM, [address], [place], [address], Provider Name:Ron Little, 2020-09-22 10:00:00 AM, [address], [place], [address], Provider Name:Ron Little, 2020-09-22 10:00:00 AM, [address], [place], [address], Insurance Providers Payer Name Payer Address Payer Insured Patient Coverage Cover age End Phone Name Relationship to Start Date Mike e Insured [employer] [address] [address] [phone] Myers self 2020 [address] [place] [address] [phone]
--- OUTSIDE RECORDS SUMMARY | 2020-09-07 07:48 | XMS REPORT ---
:1965 Author Organization [facility] Address [address] [place] [address] Care Team Providers Name Role Phone Ron Little Unavailable [phone] PROBLEMS Type Condition ICD9-CM [id number] Onset Condition SNOMED Code Notes Code Code Dates Status Problem Chronic pain G89.4 Active 927334491 syndrome Problem Diverticulosis K57.90 Active 903108503 Problem Peripheral G62.9 Active 03789162 polyneuropathy Problem GERD without K21.9 Active 601146288 esophagitis Problem Ankylosing M45.0 Active 9124438 spondylitis of multiple sites in spine Problem Primary insomnia F51.01 Active 9398440 ALLERGIES No Known Allergies ENCOUNTERS from 1965 to 2020-08-17 Encounter Location Date Provider Diagnosis [facility] [address] [facility] Jul, Ron Sidney [facility] [address] [facility] [address] infections wit h a predominantly s exual mode of transmi ssion Z11.3 IMMUNIZATIONS Vaccine Route Administration Date Status Afluria [...] Information RESULTS No Results REASON FOR VISIT refer ID MEDICAL (GENERAL) HISTORY Type Description Date Surgical History Hip replacement 2017 Surgical History Neck- Arthritis Goals Section No Information Health Concerns No Information MEDICAL EQUIPMENT No Information MENTAL STATUS No Information FUNCTIONAL STATUS No Information ASSESSMENTS Encounter Date Diagnosis Assessment Notes Treatment Notes Treatm ent Clinical Notes Jul, Encounter for screening for infections with a predominantly sexual mode of transmission (ICD-10 - Z11.3) PLAN OF TREATMENT Medication Medication Name Sig [...] 10:00:00 AM, [address], [place], [address], Provider Name:Ron Little, 2020-09-22 10:00:00 AM, [address], [place], [address], Provider Name:Ron Little, 2020-09-22 10:00:00 AM, [address], [place], [address], Insurance Providers Payer Name Payer Address Payer Insured Patient Coverage Cover age End Phone Name Relationship to Start Date Mike e Insured [employer] [address] [address] [phone] Myers self 2020 [address] [place] [address] [phone]
[2020-09-07] MEDS ORDERED: Ringers Lactate 1,000 ML IV ONE (08:16)
[2020-09-07] MEDS ORDERED: EPINEPHRINE/PF 1 MG/ML AMP ONE (08:31)
[2020-09-07] MEDS ORDERED: propofoL 200 MG/20 ML VIAL IV ONE (09:10)
[2020-09-07] MEDS ORDERED: LIDOCAINE 1% MPF 5 ML VIAL ONE (09:11)
--- NOTE | 2020-09-07 10:05 | ENDO RPT ---
[address], [address] COLONOSCOPY PROCEDURE REPORT EXAM DATE: 09/07/2020 PATIENT NAME: Ramon Henderson MR #: [id number] BIRTHDATE: 1965 ATTENDING: Derick Parr DR STATUS: outpatient PLAYGROUND OFFICIAL: Dede Hong RN and Guillaume Shah [facility] INDICATIONS: The patient is a 55 yr old Male here for a colonoscopy due to colon cancer screening PROCEDURE PERFORMED: Colonoscopy with biopsy - cold polypectomy MEDICATIONS: Per Anesthesia. ESTIMATED BLOOD LOSS: None CONSENT: The patient understands the risks and benefits of the procedure and understands that these risks include, but are not limited to: sedation, allergic reaction, infection, perforation and/or bleeding. Alternative means of evaluation and treatment include, among others: physical exam, x-rays, and/or surgical intervention. The patient elects to proceed with this endoscopic procedure. DESCRIPTION OF PROCEDURE: During intra-op preparation period all mechanical medical equipment was checked for proper function. Hand hygiene and appropriate measures for infection prevention was taken. Procedure, possible complications, alternatives including, but not limited to possibility of bleeding, perforation, tear, infection, sepsis, need for surgery, need for blood transfusion, were explained to the patient. After the risks, benefits and alternatives of the procedure were thoroughly explained, Informed consent was verified, confirmed and timeout was successfully executed by the treatment team. The patient was placed in the left lateral position. A digital rectal exam was performed and revealed internal hemorrhoids. After appropriate level of anesthesia, the scope was passed. The [id number] ([id number]) endoscope was introduced through the anus and advanced to the cecum, which was identified by both the appendix and ileocecal valve. The quality of the prep was poor. The instrument was then slowly withdrawn as the colon was fully examined. Scope withdrawal time was 10 minutes. COLON FINDINGS: There was moderate diverticulosis noted in the sigmoid colon with associated angulation and muscular hypertrophy. No bleeding was noted from the diverticulosis. A small smooth sessile polyp was found in the sigmoid colon. A polypectomy was performed with a cold snare. The resection was complete, the polyp tissue was completely retrieved and sent to histology. Small internal hemorrhoids were found. Retroflexed views revealed no abnormalities. The scope was then completely withdrawn from the patient and the procedure terminated. ADVERSE EVENTS: There were no complications. IMPRESSIONS: 1. There was moderate diverticulosis noted in the sigmoid colon 2. Small sessile polyp was found in the sigmoid colon; polypectomy was performed with a cold snare 3. Small internal hemorrhoids RECOMMENDATIONS: 1. avoid NSAIDS for 2 weeks 2. await biopsy results 3. follow-up: office 2 week(s) 4. Monitor for any evidence of rectal bleeding. 5. hemorrhoidal hygiene 6. increase dietary water 7. low fiber / diverticular diet RECALL: Return in 5 year(s) for Colonoscopy, pending biopsy results. Derick Parr DR eSigned: Derick Parr DR 09/07/2020 10:05 AM cc: CPT CODES: ICD9 CODES: PATIENT NAME: MyersRamon arteaga MR#: [id number]
[2020-09-07 10:24] VITALS: O2SAT 97
[2020-09-07 10:43] VITALS: BP 106/80; TEMP 98.1
== END 2020-09-07 10:50 | disposition home or self-care (01) ==
LOC: OR 07:44
PROVIDERS: ATTEND Surgery
PROC: 0DBN8ZX Excision of Sigmoid Colon, Via Natural or Artificial Opening Endoscopic, Diagnostic (ICD-10-PCS; principal; 2020-09-07 09:15)
DX: K57.30 Diverticulosis of large intestine without perforation or abscess without bleeding (principal); K59.00 Constipation, unspecified; K43.9 Ventral hernia without obstruction or gangrene; D12.5 Benign neoplasm of sigmoid colon; K64.8 Other hemorrhoids; Z20.822 Contact with and (suspected) exposure to COVID-19
CPT/HCPCS: 88305; 45385; U0002; J2704; J7120; J0171

== ENCOUNTER 2020-09-14 07:28 | Day surgery (SDC) | payer OTHER ==
--- OUTSIDE RECORDS SUMMARY | 2020-09-14 07:39 | XMS REPORT | Continuity of Care Document ---
:1965 Author Organization [facility] Address [address] [place] [address] Care Team Providers Name Role Phone Unavailable Unavailable Unavailable Problems Condition Condition Condition Status Onset Resolution Last Treating Co mments Source Name Details Category Date Date Treatment Clinician Date LUMBAR Condition Active 2015-03-17 Mem oria RADICULOPA 03-17 09:40:31 l THY LUMBAR 00:00: Willam RADICULOPA 00 THY Active 03/17/2015 Condition 5 [facility] LUMBAR HNP Condition Active 2015-03-17 Memoria 03-17 09:40:31 l LUMBAR 00:00: [place] HNP 00 Active 03/17/2015 Condition 5 [facility] CERVICAL Condition Active 2015-03-17 M emoria SPONDYLOSI 11-24 09:40:31 l S WITH CERVICAL 00:00: Yamil n MYELOPATHY SPONDYLOSI 00 S WITH MYELOPATHY Active 11/24/2014 Condition 5 [facility] ANKYLOSING Condition Active 2015-03-17 Memoria SPONDYLITI 11-24 09:40:31 l S 00:00: Willam ANKYLOSING 00 SPONDYLITI S Active 11/24/2014 Condition 5 [facility] CERVICAL Condition Active 2015-03-17 M emoria DISC 11-24 09:40:31 l DISORDER CERVICAL 00:00: Herm ye W/MYELOPAT DISC 00 DISORDER W/MYELOPAT Active 11/24/2014 Condition 5 [facility] SPINAL Condition Active 2015-03-17 Mem oria STENOSIS 4- 09:40:31 l OF SPINAL 00:00: [place] CERVICAL STENOSIS 00 REGION OF CERVICAL REGION Active 11/24/2014 Condition 5 [facility] CERVICAL Condition Active 2015-03-17 M emoria RADICULOPA 4- 09:40:31 l THY CERVICAL 00:00: Yamil n RADICULOPA 00 THY Active 11/24/2014 Condition 5 [facility] ATAXIA Condition Active 2015-03-17 Mem oria 4- 09:40:31 l ATAXIA 00:00: [place] 00 Active 11/24/2014 Condition 5 [facility] Neuro [...] TABS 6-12 q8h prn l 00:00: muscle [place] 00 spasms TYLENOL No 1 tab po Memori a WITH 6-12 q6h prn l CODEINE #3 00:00: pain [place] 300-30 MG 00 TABS LYRICA 75 No 1 cap po Jaison yolanda MG CAPS 6-12 bid l 00:00: [place] 00 NORCO No 1-2 tabs Memoria 10-325 MG 5-13 po q4-6h l TABS 00:00: prn pain Willam 00 DIAZEPAM 5 No 1 tab po Mem oria MG TABS 5-13 q8h prn l 00:00: muscle [place] 00 spasms LYRICA 75 Yes 1 cap po Jaison yolanda MG CAPS 5-13 tid l 00:00: [place] 00 LYRICA 75 No 1 cap po Jaison yolanda MG CAPS 5-13 tid l 00:00: [place] 00 Vital Signs Vital Name Observation Time Observation Value Comments Source Weight 2015-03-17 14:40:31 [facility] [place] Height 2015-03-17 14:40:31 [facility] [place] Temperature Oral (F) 2015-03-17 14:40:31 97.3 F [facility] [place] Heart Rate 2015-03-17 14:40:31 [facility] [place] Systolic (mm Hg) 2015-03-17 14:40:31 Jaison rial [place] Diastolic (mm Hg) 2015-03-17 14:40:31 Mem orial [place] Weight 2015-01-05 18:40:20 [facility] [place] Height 2015-01-05 18:40:20 [facility] [place] Temperature Oral (F) 2015-01-05 18:40:20 97.0 F [facility] [place] Heart Rate 2015-01-05 18:40:20 [facility] [place] Systolic (mm Hg) 2015-01-05 18:40:20 Jaison rial [place] Diastolic (mm Hg) 2015-01-05 18:40:20 Mem orial [place] Respitory Rate 2015-01-05 18:40:20 Memori al [place] Weight 2014-12-13 14:13:52 [facility] [place] Height 2014-12-13 14:13:52 [facility] [place] Temperature Oral (F) 2014-12-13 14:13:52 98.5 F [facility] [place] Respitory Rate 2014-12-13 14:13:52 Memori al [place] Heart Rate 2014-12-13 14:13:52 [facility] [place] Systolic (mm Hg) 2014-12-13 14:13:52 Jaison rial [place] Diastolic (mm Hg) 2014-12-13 14:13:52 Mem orial [place] Weight 2014-11-24 14:40:21 [facility] [place] Height 2014-11-24 14:40:21 [facility] [place] Temperature Oral (F) 2014-11-24 14:40:21 97.7 F [facility] [place] Heart Rate 2014-11-24 14:40:21 [facility] [place] Systolic (mm Hg) 2014-11-24 14:40:21 Jaison rial [place] Diastolic (mm Hg) 2014-11-24 14:40:21 Mem orial [place] Procedures This patient has no known procedures. Encounters Start End Encounter Admission Attending Care Care Encounter Source Date/Time Date/Time Type Type Clinicians Facility Department ID 2020-08-25 2020-08-25 Outpatient [facility] [id number] [facility] 2020-08-16 2020-08-16 Outpatient [facility] [id number] [facility] 2020-08-12 2020-08-12 Out[facility] [id number] [facility] 2020-08-09 2020-08-09 Outpatient [facility] [id number] [facility] 2020-07-29 2020-07-29 Outpatient [facility] [id number] [facility] 2020-07-28 2020-07-28 Outpatient [facility] [id number] [facility] 2020-06-24 2020-06-24 Outpatient [facility] [id number] [facility] 2020-06-14 2020-06-14 Outpatient [facility] [id number] [facility] Results This patient has no known results.
--- OUTSIDE RECORDS SUMMARY | 2020-09-14 07:39 | XMS REPORT | Continuity of Care Document ---
:1965 Author Organization [facility] Care Team Providers Name Role Phone [facility] Unavailable Un available Problems Problem Status Onset [...] MG 1 cap po [facility] Neuro Allergies, [...] Value Date Comments Source Weight 159.2 03[facility]17[facility]2015 [facility] Height 63 03/17/2015 [facility] [place] [facility] Temperature Oral (F) 97.3 F 03/17/2015 [facility] [place] Neuro Heart Rate 113 03/17/2015 [facility] Systolic (mm Hg) 153 03/17/2015 [facility] Diastolic (mm Hg) 88 03/17/2015 [facility] [place] Ne uro Weight 165.0 01/05/2015 [facility] [place] Neuro Height 63 01/05/2015 [facility] [place] Neuro Temperature Oral (F) 97.0 F 01/05/2015 [facility] [place] Neuro Heart Rate 100 01/05/2015 [facility] [place] Neuro Systolic (mm Hg) 134 01/05/2015 [facility] Diastolic (mm Hg) 88 01/05/2015 [facility] [place] Ne uro Respitory Rate 16 01/05/2015 [facility] Weight 166 12/13/2014 [facility] [place] Neuro Height 60 12/13/2014 [facility] [place] Neuro Temperature Oral (F) 98.5 F 12/13/2014 [facility] [place] Neuro Respitory Rate 16 12/13/2014 [facility] [place] Neuro Heart Rate 78 12/13/2014 [facility] [place] Neuro Systolic (mm Hg) 130 12/13/2014 [facility] Diastolic (mm Hg) 78 12/13/2014 [facility] [place] Ne uro Weight 166.8 11/24/2014 [facility] [place] Neuro Height 60 11/24/2014 [facility] [place] Neuro Temperature Oral (F) 97.7 F 11/24/2014 [facility] [place] Neuro Heart Rate 90 11/24/2014 [facility] [place] Neuro Systolic (mm Hg) 147 11/24/2014 [facility] Diastolic (mm Hg) 91 11/24/2014 [facility] [place] Ne uro Encounters Location Location Encounter Encounter Reason Attending ADM MD Stat Source Details Type Number For Provider Date Date Visit [facility] [id number] Osvaldo 11/24 11/24 [facility] Visit 0 Jaskaran CURRY /2014 Neuro [facility] [id number] Osvaldo 12/13 12/13 [facility] Visit 1980 Jaskaran CURRY /2014 Neuro [facility] [place] [facility] [id number] Osvaldo 01/05 01/05 [facility] Visit [id number] Jaskaran CURRY /2014 Neuro [facility] [id number] Osvaldo 03/17 03/17 [facility] Visit 0230 Jaskaran CURRY /2014 Neuro [facility] Procedures No Data Provided for This Section [...]
[2020-09-14] MEDS ORDERED: Ringers Lactate 1,000 ML IV ONE ×3 (08:02→12:24)
[2020-09-14] MEDS ORDERED: CEFAZOLIN/SWI 2gm 2 GM/20 ML SYR ONE (08:02)
[2020-09-14] MEDS ORDERED: BUPIVACAINE 0.25% PF 30 ML VIAL ONE (08:08)
[2020-09-14] MEDS ORDERED: propofoL 200 MG/20 ML VIAL IV ONE (08:51)
[2020-09-14] MEDS ORDERED: ROCURONIUM 50 MG/5 ML VIAL IV ONE (08:51)
[2020-09-14] MEDS ORDERED: dexAMETHasone 10 MG/ML VIAL ONE (08:51)
[2020-09-14] MEDS ORDERED: FENTANYL CITR 100 MCG/2 ML ONE ×2 (08:51→10:31)
[2020-09-14] MEDS ORDERED: KETOROLAC 30 MG/ML INJ ONE (08:52)
[2020-09-14] MEDS ORDERED: MIDAZOLAM HCL 2 MG/2 ML INJ ONE (08:52)
[2020-09-14] MEDS ORDERED: LIDOCAINE 2% MPF 5 ML VIAL ONE (08:52)
[2020-09-14] MEDS ORDERED: ONDANSETRON 4 MG/2 ML VIAL ONE ×2 (08:53→11:30)
[2020-09-14] MEDS ORDERED: HYDROMORPHONE HCL 1 MG/ML INJ ONE ×2 (10:55→11:31)
[2020-09-14] MEDS ORDERED: NS 0.9% VIAL 10 ML ONE (10:57)
--- NOTE | 2020-09-14 10:59 | P.OP ---
Preoperative diagnosis: Ventral Incisional Incarcerated Hernia Postoperative diagnosis: Ventral Incisional Incarcerated Hernia Primary procedure: Laparoscopic Adhesiolysis >1.5 hours Secondary procedure: Laparoscopic Ventral Hernia Repair with mesh Anesthesia: GETA + Local Estimated blood loss: <10cc Specimen: none Findings: Complex 9 x 15 cm ventral hernia, liver contained in hernia, bowel incarcer Complications: None Implants: Bard Ventralite ST mesh 20x25 cm with echo position Transferred to: Recovery Room Condition: Good
[2020-09-14] MEDS ORDERED: MEPERIDINE HCL 25 MG/ML SYR ONE (11:31)
--- NOTE | 2020-09-14 11:42 | OP ---
Date of Procedure: 09/14/2020 Surgeon: Mikhail Parr MD, Preoperative Diagnosis: Ventral incisional incarcerated hernia. Postoperative Diagnosis: Ventral incisional incarcerated hernia. Procedures Performed: 1.Laparoscopic adhesiolysis for greater than 1.5 hours. 2.Laparoscopic ventral hernia repair with mesh. Anesthesia: General endotracheal plus local with 0.25% Marcaine without epinephrine. Estimated Blood Loss: Less than 10 cc. Specimen: None. Findings: Complex 9 x 15 cm ventral hernia containing liver within the superior aspect and bowel inc arcerated throughout the inferior aspect on the midline and paramedian ventral hernia defect. Complications: None. Implants: Bard Ventralight ST mesh with Echo Positioning System, 20 x 25 cm in size. Disposition: Transferred to recovery room in good condition. Procedure In Detail: After informed was obtained, the patient was brought to the operating room, pre pped and draped in the usual sterile fashion. After adequate anesthesia was achieved, a left upper q uadrant incision was performed after appropriately anesthetizing the skin, sharply incised. A 5 mm 0 -degree optical trocar was introduced into the abdomen without evidence of complication. Insufflatio n was obtained to 15 mmHg at this time. There was no injury to vital structures upon entry into the abdomen. Additional trocar site was chosen in the right lower quadrant and in the left lower quadran t. Both of these were anesthetized and sharply incised and 5 mm trocar was placed under direct visua lization in the right lower quadrant and a 12 mm in the left lower quadrant. Both of these were intr oduced without complication at this point. Insufflation was obtained to 15 mm at this time as descri bed. The patient was positioned slightly head down at this point. A laparoscopic adhesiolysis was p erformed for approximately almost just shy of 2 hours using the LigaSure device and a combination of blunt and sharp dissection to remove small bowel contents and colon from the abdominal hernias as wel l as the liver to the anterior surface of the defect. The liver was quite firmly attached to the ant erior superior aspect of the ventral hernia with very thick fibrous adhesions requiring the most mobi lization at this point. After this was performed, the liver was inspected. There was no bleeding fr om the liver. There was a small injury to the capsule of the liver on the left lateral lobe, which w as secured with the LigaSure device. Using LigaSure device multiple times on this 1 area, good hemos tasis was easily achieved at this point with no bleeding at this point. I then turned my attention t o the midline. The remainder of the anterior abdominal wall was swept clean of all preperitoneal fat until a good landing zone was noted. The abdomen had a Uzbek cheese appearance at the midline and p aramedian areas of the anterior abdominal wall. This was inspected at this point and found to be nicole roximately 9 cm in the lateral by 15 cm in the superior inferior position and the liver was taken radha n on the anterior surface of the defect. As the liver had been removed from the superior aspect of t his defect allowing for appropriately landing zone, a 20x [address] mesh with Echo Po sitioning System was brought in through the left lower quadrant trocar, centrally positioned and infl ated and deployed at this point. I then used 60 absorbable fixation tacks called Sorbafix fixation s ystem circumferentially for double crown and removed the balloon deployment system and it was found t o be intact on the back table. After this was performed, I placed additional tacks in the middle for a total of 60 tacks to ensure the mesh was in good apposition to the anterior abdominal wall. After this was performed, the patient was positioned in the head down left side up position and I desuffla mikhail the abdomen, inspected for hemostasis. No additional hemostasis was required. The abdomen was i rrigated and suctioned out until completely clear and dry. I then removed the left lower quadrant 12 mm trocar and closed this site with a Aidan-Juli suture passer with 0 Vicryl in an interrupted fashion with good approximation tissues. The abdomen was completely desufflated under direct visuali zation without evidence of complication. All trocars were removed. All skin incisions were copiousl y irrigated and closed with interrupted renita and sterile dressing was placed over top and abdomina l binder placed over that. The patient tolerated the procedure well without evidence of complication , transferred in good condition. All counts were correct at the end of the case. FARHAT/DAVE Voice ID: [id number] Report ID: [id number]
[2020-09-14] MEDS ORDERED: HYDROCODONE/APAP 7.5/325 MG TAB ONE (12:30)
[2020-09-14 12:41] VITALS: BP 128/77; TEMP 97.2; O2SAT 97
== END 2020-09-14 13:35 | disposition home or self-care (01) ==
LOC: OR 07:28
PROVIDERS: ATTEND Surgery
PROC: 0DN84ZZ Release Small Intestine, Percutaneous Endoscopic Approach (ICD-10-PCS; 2020-09-14)
PROC: 0WUF4JZ Supplement Abdominal Wall with Synthetic Substitute, Percutaneous Endoscopic Approach (ICD-10-PCS; principal; 2020-09-14 08:30)
DX: K43.6 Other and unspecified ventral hernia with obstruction, without gangrene (principal); Z20.822 Contact with and (suspected) exposure to COVID-19
CPT/HCPCS: 49655; 44180; U0002; J2704; J2250; J3010 ×2; J1100; J2175; J1170 ×2; J0690; J7120 ×3; J2405 ×2

== ENCOUNTER 2020-12-09 19:38 | Emergency (ER) | payer OTHER ==
--- OUTSIDE RECORDS SUMMARY | 2020-12-09 19:41 | XMS REPORT | Continuity of Care Document ---
:1965 Author Organization [facility] t Address [address] [place] [address] Care Team Providers Name Role Phone Unavailable Unavailable Unavailable Problems Condition Condition Condition Status Onset Resolution Last Treating Co mments Source Name Details Category Date Date Treatment Clinician Date LUMBAR Condition Active 2015-03-17 Mem [facility] RADICULOPA 03-17 09:40:31 l THY LUMBAR 00:00: Willam RADICULOPA 00 THY Active 03/17/2015 Condition 5 [facility] LUMBAR HNP Condition Active 2015-03-17 Memoria 03-17 09:40:31 l LUMBAR 00:00: Talent HNP 00 Active 03/17/2015 Condition 5 [facility] CERVICAL Condition Active 2015-03-17 M emoria DISC 4- 09:40:31 l DISORDER CERVICAL 00:00: Herm ye W/MYELOPAT DISC 00 DISORDER W/MYELOPAT Active 11/24/2014 Condition 5 [facility] SPINAL Condition Active 2015-03-17 Mem oria STENOSIS 4- 09:40:31 l OF SPINAL 00:00: Talent CERVICAL STENOSIS 00 REGION OF CERVICAL REGION Active 11/24/2014 Condition 5 [facility] CERVICAL Condition Active 2015-03-17 M emoria RADICULOPA 4- 09:40:31 l THY CERVICAL 00:00: Yamil n RADICULOPA 00 THY Active 11/24/2014 Condition 5 [facility] ATAXIA Condition Active 2015-03-17 Mem oria 4- 09:40:31 l ATAXIA 00:00: Willam 00 Active 11/24/2014 Condition 5 [facility] CERVICAL Condition Active 2015-03-17 M emoria SPONDYLOSI - 09:40:31 l S WITH CERVICAL 00:00: Yamil n MYELOPATHY SPONDYLOSI 00 S WITH MYELOPATHY Active 11/24/2014 Condition 5 [facility] ANKYLOSING Condition Active 2015-03-17 Memoria SPONDYLITI 4- 09:40:31 l S 00:00: Willam ANKYLOSING 00 SPONDYLITI S Active 11/24/2014 Condition 5 [facility] Allergies, [...] TABS 6-12 q8h prn l 00:00: muscle Talent 00 spasms TYLENOL No 1 tab po Memori a WITH 6-12 q6h prn l CODEINE #3 00:00: pain Talent 300-30 MG 00 TABS LYRICA 75 No 1 cap po Jaison yolanda MG CAPS 6-12 bid l 00:00: Talent 00 NORCO No 1-2 tabs Memoria 10-325 MG 5-13 po q4-6h l TABS 00:00: prn pain Talent 00 DIAZEPAM 5 No 1 tab po Mem oria MG TABS 5-13 q8h prn l 00:00: muscle Willam 00 spasms LYRICA 75 Yes 1 cap po Jaison yolanda MG CAPS 5-13 tid l 00:00: Talent 00 LYRICA 75 No 1 cap po Jaison yolanda MG CAPS 5-13 tid l 00:00: Talent 00 Vital Signs Vital Name Observation Time Observation Value Comments Source Weight 2015-03-17 14:40:31 [facility] Height 2015-03-17 14:40:31 [facility] Temperature Oral (F) 2015-03-17 14:40:31 97.3 F [facility] Heart Rate 2015-03-17 14:40:31 [facility] Systolic (mm Hg) 2015-03-17 14:40:31 Jaison rial [facility]am Diastolic (mm Hg) 2015-03-17 14:40:31 [facility] Weight 2015-01-05 18:40:20 [facility] Height 2015-01-05 18:40:20 [facility] Temperature Oral (F) 2015-01-05 18:40:20 97.0 F [facility] Heart Rate 2015-01-05 18:40:20 [facility] Systolic (mm Hg) 2015-01-05 18:40:20 Jaison rial Talent Diastolic (mm Hg) 2015-01-05 18:40:20 [facility] Respitory Rate 2015-01-05 18:40:20 [facility] Weight 2014-12-13 14:13:52 [facility] Height 2014-12-13 14:13:52 [facility] Temperature Oral (F) 2014-12-13 14:13:52 98.5 F [facility] Respitory Rate 2014-12-13 14:13:52 [facility] Heart Rate 2014-12-13 14:13:52 [facility] Systolic (mm Hg) 2014-12-13 14:13:52 Jaison rial Wilalm Diastolic (mm Hg) 2014-12-13 14:13:52 [facility] Weight 2014-11-24 14:40:21 [facility] Height 2014-11-24 14:40:21 [facility] Temperature Oral (F) 2014-11-24 14:40:21 97.7 F [facility] Heart Rate 2014-11-24 14:40:21 [facility] Systolic (mm Hg) 2014-11-24 14:40:21 Jaison rial Talent Diastolic (mm Hg) 2014-11-24 14:40:21 Mem o[facility] Procedures This patient has no known procedures. Encounters Start End Encounter Admission Attending Care Care Encounter Source Date/Time Date/Time Type Type Clinicians Facility Department ID 2020-10-19 2020-10-19 Outpatient [facility] [id number] [facility] 2020-09-29 2020-09-29 Out[facility] [id number] [facility] 2020-09-22 2020-09-22 Out[facility] [id number] [facility] 2020-09-22 2020-09-22 Out[facility] [id number] [facility] 2020-08-25 2020-08-25 Out[facility] [id number] [facility] 2020-08-16 2020-08-16 Out[facility] [id number] [facility] 2020-08-12 2020-08-12 Out[facility] [id number] [facility] 2020-08-09 2020-08-09 Out[facility] [id number] [facility] 2020-07-29 2020-07-29 Out[facility] [id number] [facility] 2020-07-28 2020-07-28 Out[facility] [id number] [facility] 2020-06-24 2020-06-24 Out[facility] [id number] [facility] 2020-06-14 2020-06-14 Out[facility] [id number] [facility] Yeimy velez [facility] Clinics Results This patient has no known results.
[2020-12-09] MEDS ORDERED: ONDANSETRON 4 MG/2 ML VIAL ONE (20:17)
[2020-12-09] MEDS ORDERED: MORPHINE 4 MG/ML SYR ONE (20:17)
--- NOTE | 2020-12-09 21:06 | RAD REPORT ---
EXAM DESCRIPTION: RAD - Pelvis - 12/09/2020 8:38 pm CLINICAL HISTORY: BLUNT TRAUMA, pain COMPARISON: No comparisonsno remote pelvic imaging TECHNIQUE: AP imaging of the pelvis was obtained. FINDINGS: Dislocation of the left femoral component from the acetabular cup. No fracture of the prox imal femur or bony pelvis. Right femoral component normally positioned. IMPRESSION: Left hip joint femoral component dislocation
--- NOTE | 2020-12-09 21:06 | RAD REPORT ---
EXAM DESCRIPTION: RAD - Hip Left 2 View - 12/09/2020 8:38 pm CLINICAL HISTORY: DEFORMITY COMPARISON: Hip Left 1 View dated 08/20/2018; Hip Left 2 View dated 07/29/2018; Pelvis dated FINDINGS: AP and cross-table lateral views obtained. Slight motion degradation is present. Femoral c omponent has been dislocated from the acetabular cup. A fracture of the femur or left hemipelvis not confirmed. Small bone density near the lateral margin greater trochanter was seen on prior imaging. IMPRESSION: Dislocation of left femoral component from the acetabular cup
[2020-12-09] MEDS ORDERED: FENTANYL CITR 100 MCG/2 ML ONE ×3 (21:19→23:47)
[2020-12-09] MEDS ORDERED: NA CHLORIDE 0.9% 1,000 ML ONE (21:19)
[2020-12-09] MEDS ORDERED: propofoL 200 MG/20 ML VIAL IV ONE (21:19)
[2020-12-09] MEDS ORDERED: propofoL 1,000 MG/100 ML VIAL IV ONE (21:50)
[2020-12-09] MEDS ORDERED: MIDAZOLAM HCL 2 MG/2 ML INJ ONE (23:15)
[2020-12-10 01:26] LABS: Absolute Lymphocytes (CBC) 1.4 K/uL (0.7-4.9); Basophils % 0.4 % (0-1.3); Hematocrit 40.3 % (39.6-49.0); Lymphocytes % 19.7 % (15.3-44.8); MPV 9.7 fL (7.6-11.3); RBC Red Blood Cell Count 4.61 M/uL (4.33-5.43)
[2020-12-10 01:30] LABS: Protime INR 0.97
[2020-12-10 01:50] LABS: BUN Blood Urea Nitrogen 14 mg/dL (7-18); Bicarbonate 26 mmol/L (21-32); Glucose Level 114 mg/dL (74-106); Potassium 3.9 mmol/L (3.5-5.1); Sodium Level 139 mmol/L (136-145)
[2020-12-10 01:51] LABS: ALT/SGPT 20 U/L (12-78); AST/SGOT 19 U/L (15-37); Albumin 3.7 g/dL (3.4-5.0); Alkaline Phosphatase 110 U/L (45-117); Bilirubin Direct 0.1 mg/dL (0-0.2); Bilirubin Total 0.5 mg/dL (0.2-1.0); Protein, Total 6.8 g/dL (6.4-8.2)
--- NOTE | 2020-12-10 04:22 | ER ---
Nurse's Notes [facility] Name: Ramon Mckeon Age: 55 yrs Sex: Male : 1965 Arrival Date: 12/09/2020 Time: 19:41 Bed 3 Private MD: Diagnosis: Dislocation of internal left hip prosthesis Presentation: 12/09 19:42 Chief complaint: EMS states: PATIENT IS POST BILATERAL HIP REPLACEMENT 2-3 YEARS AGO, rv HE NORMALLY HAVE EPISODES OF HIP DISLOCATION ON THE RIGHT SIDE AND ABLE TO PUT IS BACK BY HIMSELF, TODAY HE TOOK OUT THE TRASH AND BENT OVER, IMMEDIATELY FELT PAIN ON THE LEFT SIDE AND LAID DOWN ON THE GROUND, DENIES FALLING OVER OR HEAD INJURY. TOOK HYDROCODONE 7.5MG ORALLY AT 1500 TODAY FOR ARTHRITIS. Coronavirus screen: Client denies travel out of the [place] in the last 14 days. Ebola Screen: No symptoms or risks identified at this time. Initial Sepsis Screen: Does the patient meet any 2 criteria? No. Patient's initial sepsis screen is negative. Does the patient have a suspected source of infection? No. Patient's initial sepsis screen is negative. Risk Assessment: Do you want to hurt yourself or someone else? Patient reports no desire to harm self or others. Onset of symptoms was December 09, 2020. 19:42 Method Of Arrival: EMS: [facility] rv 19:42 Acuity: SOPHIA 3 rv Triage Assessment: 19:47 General: Appears uncomfortable, Behavior is calm, cooperative. Pain: Complains of pain rv in left hip. EENT: No signs and/or symptoms were reported regarding the EENT system. Neuro: Level of Consciousness is awake, alert, obeys commands, Oriented to person, place, time, situation. Cardiovascular: Patient's skin is warm and dry. Respiratory: Airway is patent Respiratory effort is even, unlabored. Derm: Skin is intact. Historical: - Allergies: 19:47 No Known Allergies; rv - PMHx: 19:47 cervical spine fusion; rv - PSHx: 19:47 HIP REPLACEMENT, BILATERAL; rv - Immunization history:: Adult Immunizations up to date. - Social history:: Smoking status: Patient denies any tobacco usage or history of. Screenin:48 Abuse screen: Denies threats or abuse. Denies injuries from another. Nutritional rv screening: No deficits noted. Tuberculosis screening: No symptoms or risk factors identified. Fall Risk None identified. Assessment: 12/10 00:34 Reassessment:. rv 02:26 Reassessment: Patient appears in no apparent distress at this time. Patient is alert, rr5 oriented x 3, equal unlabored respirations, skin warm/dry/pink. awaiting for approval to other facility. 05:18 Reassessment: REPORT GIVEN TO BRANT GODINEZ OF [facility]. PATIENT'S SPOUSE UPDATED THRU PHONE CALL.rv Vital Signs: 12/09 19:42 BP 171 / 81; Pulse 80; Resp 16; Temp 97.3; Pulse Ox 97% on R/A; Weight 81.65 kg; Height rv 5 ft. 3 in. (160.02 cm); Pain 7/10; 20:30 BP 154 / 91; Pulse 70; Resp 17; Pulse Ox 96% on R/A; rv 21:15 BP 146 / 77; Pulse 66; Resp 19; Pulse Ox 98% on 2 lpm NC; rv 22:00 BP 144 / 93; Pulse 64; Resp 19; Pulse Ox 96% on 2 lpm NC; rv 22:45 BP 159 / 95; Pulse 74; Resp 21; Pulse Ox 96% on 2 lpm NC; rv 12/10 00:00 BP 120 / 91; Pulse 64; Resp 17; Pulse Ox 98% on 2 lpm NC; rv 00:30 BP 143 / 86; Pulse 66; Resp 19; Pulse Ox 99% on 2 lpm NC; rv 01:30 BP 141 / 79; Pulse 69; Resp 16; Pulse Ox 98% on 2 lpm NC; rr5 02:25 BP 147 / 80; Pulse 62; Resp 17; Pulse Ox 99% on 2 lpm NC; rr5 03:00 BP 148 / 75; Pulse 57; Resp 18; Pulse Ox 99% on 2 lpm NC; rv 04:00 BP 135 / 72; Pulse 58; Resp 14; Pulse Ox 99% on 2 lpm NC; rv 05:00 BP 138 / 82; Pulse 60; Resp 17; Pulse Ox 99% on 2 lpm NC; rv 06:00 BP 135 / 74; Pulse 61; Resp 18; Pulse Ox 97% on 2 lpm NC; rv 12/09 19:42 Body Mass Index 31.89 (81.65 kg, 160.02 cm) rv Michael Coma Score: 12/09 21:00 Eye Response: spontaneous(4). Verbal Response: oriented(5). Motor Response: obeys rv commands(6). Total: 15. 22:00 Eye Response: spontaneous(4). Verbal Response: oriented(5). Motor Response: obeys rv commands(6). Total: 15. 23:00 Eye Response: spontaneous(4). Verbal Response: oriented(5). Motor Response: obeys rv commands(6). Total: . 12/10 00:00 Eye Response: spontaneous(4). Verbal Response: oriented(5). Motor Response: obeys rv commands(6). Total: 15. 01:00 Eye Response: spontaneous(4). Verbal Response: oriented(5). Motor Response: obeys rv commands(6). Total: 15. 02:00 Eye Response: spontaneous(4). Verbal Response: oriented(5). Motor Response: obeys rv commands(6). Total: 15. 03:00 Eye Response: spontaneous(4). Verbal Response: oriented(5). Motor Response: obeys rv commands(6). Total: 15. 04:00 Eye Response: spontaneous(4). Verbal Response: oriented(5). Motor Response: obeys rv commands(6). Total: 15. 05:00 Eye Response: spontaneous(4). Verbal Response: oriented(5). Motor Response: obeys rv commands(6). Total: 15. ED Course: 12/09 19:41 Patient arrived in ED. rv 19:45 Triage completed. rv 19:45 Praneeth Doll MD is Attending Physician. 7 19:48 Arm band placed on right wrist. Patient placed in the treatment room, on a stretcher, rv Patient notified of wait time. 19:48 Patient has correct armband on for positive identification. Pulse ox on. NIBP on. rv 19:55 Elmo Narayan RN is Primary Nurse. rv 20:06 Inserted saline lock: 22 gauge in right forearm, using aseptic technique. Missed rv attempt(s): 20 gauge in right forearm. 20:38 Hip Left 2 View XRAY In Process Unspecified. EDMS 20:38 Pelvis XRAY In Process Unspecified. EDMS 21:13 Consent for conscious sedation explained by physician, signed by spouse. rv 21:57 Hip Left 2 View XRAY In Process Unspecified. EDMS 12/10 00:36 Assist provider with reduction of left pathologic or non traumatic hip using rv manipulation, Set up for procedure. Performed by Praneeth Doll MD Patient tolerated well. UNSUCCESFUL. 00:37 Hip Left 2 View XRAY In Process Unspecified. EDMS 01:05 Initiated transfer at [facility] with Yessenia Analy. Stated she would do a bed tt3 check and call back. 01:40 Yessenia called and passed on to Radha Brown, RN, Charge Nurse that [facility] had to tt3 deny due to ER saturation. 01:49 Initiated transfer at [facility] with Christa Nelson. Stated she would do a bed check tt3 and call back. 02:02 Christa Nelson called back with their physician to consult with Dr. Doll regarding tt3 the transfer request. 02:11 Initiated transfer at [facility] with Dave Martinez. Stated he would do a bed check and call tt3 back. 02:40 Dave from [facility] called and informed Radha Brown, RN, Charge Nurse that the request to tt3 transfer was denied due to no beds. 02:44 Initiated transfer at [facility] with Carmine. Was informed that they were at capacity and tt3 the request would be denied. 02:45 Initiated transfer at [facility] with Lianne. Was informed all campuses were at capacity so tt3 the request to transfer would be declined. 03:57 Updated Christa Nelson at [facility] that the reduction was unsuccessful. Stated she tt3 would get in touch with the hospitalist and call back. 04:13 Christa Nelson called back with the hospitalist to consult with Dr. Doll regarding tt3 the transfer request. 04:25 Christa Lloydson gave admin approval. The accepting physician is Dr. Landin. The pt is tt3 going to [facility], [address] - [address] 2122. Nurse to call report to . Covid results, face sheet and MOT to be faxed to per Christa's request. 06:17 IV is patent, with fluids infusing freely, Patient transferred, IV remains in place. rv Administered Medications: 12/09 20:05 Drug: morphine 4 mg Route: IVP; Site: right forearm; rv 12/10 00:42 Follow up: Response: No adverse reaction rv 12/09 20:06 Drug: Zofran (Ondansetron) 4 mg Route: IVP; Site: right forearm; rv 12/10 00:41 Follow up: Response: No adverse reaction rv 12/09 21:23 Drug: fentaNYL (PF) 50 mcg {Note: RASS 0.} Route: IVP; Site: right forearm; rv 12/10 00:41 Follow up: Response: No adverse reaction rv 12/09 21:24 Drug: Propofol 20 mg Route: IVP; Site: right forearm; rv 12/10 00:41 Follow up: Response: No adverse reaction rv 12/09 21:24 Drug: Propofol 20 mg Route: IVP; Site: right forearm; rv 12/10 00:39 Follow up: Response: No adverse reaction rv 12/09 21:25 Drug: Propofol 20 mg Route: IVP; Site: right forearm; rv 12/10 00:39 Follow up: Response: No adverse reaction rv 12/09 21:27 Drug: Propofol 20 mg Route: IVP; Site: right forearm; rv 12/10 00:39 Follow up: Response: No adverse reaction rv 12/09 21:32 Drug: fentaNYL (PF) 50 mcg Route: IVP; Site: right forearm; rv 12/10 00:40 Follow up: Response: No adverse reaction; RASS: Drowsy (-1) rv 12/09 21:32 Drug: Propofol 20 mg Route: IVP; Site: right forearm; rv 12/10 00:39 Follow up: Response: No adverse reaction rv 12/09 21:33 Drug: Propofol 5 mcg/kg/min Route: IV; Rate: calculated rate; Site: right forearm; rv 12/10 05:02 Follow up: Response: No adverse reaction; IV Status: Order to discontinue infusion rv 12/09 22:50 Drug: fentaNYL (PF) 50 mcg Route: IVP; Site: right antecubital; rv 12/10 00:39 Follow up: Response: No adverse reaction; RASS: Drowsy (-1) rv 12/09 22:55 Drug: fentaNYL (PF) 50 mcg Route: IVP; Site: right antecubital; rv 12/10 00:39 Follow up: Response: No adverse reaction; RASS: Drowsy (-1) rv 12/09 22:57 Drug: Versed (midazolam) 2 mg Route: IVP; Site: right antecubital; rv 12/10 00:38 Follow up: Response: No adverse reaction rv 12/09 23:50 Drug: fentaNYL (PF) 50 mcg Route: IVP; Site: right forearm; rv 12/10 00:38 Follow up: Response: No adverse reaction; RASS: Drowsy (-1) rv 00:01 Drug: Versed (midazolam) 2 mg Route: IVP; Site: right forearm; rv 00:38 Follow up: Response: No adverse reaction rv Outcome: 04:22 ER care complete, transfer ordered by MD. carr 06:16 Transferred by ground EMS to [facility], Transfer form completed. rv X-rays sent w/ patient. 06:16 Condition: good 06:16 Instructed on the need for transfer. 06:20 Patient left the ED. rv Signatures: Dispatcher [employer] Elmo Morales RN RN El Bruce RN RN rr5 Praneeth Doll MD MD 7 Daryl Pelaez tt3
--- NOTE | 2020-12-10 04:22 | EDPHYS ---
Physician Documentation [facility] Name: Ramon Mckeon Age: 55 yrs Sex: Male : 1965 Arrival Date: 12/09/2020 Time: 19:41 Bed 3 Private MD: ED Physician Praneeth Doll HPI: 12/09 19:55 This 55 yrs old Male presents to ER via EMS with complaints of Hip Injury. 7 19:55 The patient or guardian reports an injury. that occurred at home, sustained from mh7 bending over the left lower extremity is shortened, The patient is not able to ambulate. Patient is not able to bear weight. There is no radiation of the patient's discomfort. The patient was discovered 30 minutes after the incident. The complaints affect the left hip. Onset: The symptoms/episode began/occurred just prior to arrival, today. Modifying factors: The symptoms are alleviated by nothing, the symptoms are aggravated by any movement. Associated signs and symptoms: Loss of consciousness: the patient experienced no loss of consciousness, Pertinent negatives: abdominal pain, altered mental status, anorexia, chest pain, diarrhea, dizziness, dysuria, fever, headache, incontinence, nausea, shortness of breath, vomiting, weakness. Severity of symptoms: At their worst the symptoms were moderate, earlier today, in the emergency department the symptoms are unchanged. The patient has experienced similar episodes in the past, several times. Historical: - Allergies: 19:47 No Known Allergies; rv - PMHx: 19:47 cervical spine fusion; rv - PSHx: 19:47 HIP REPLACEMENT, BILATERAL; rv - Immunization history:: Adult Immunizations up to date. - Social history:: Smoking status: Patient denies any tobacco usage or history of. ROS: 19:55 Constitutional: Negative for fever, chills, and weight loss, Eyes: Negative for injury, mh7 pain, redness, and discharge, ENT: Negative for injury, pain, and discharge, Neck: Negative for injury, pain, and swelling, Cardiovascular: Negative for chest pain, palpitations, and edema, Respiratory: Negative for shortness of breath, cough, wheezing, and pleuritic chest pain, Abdomen/GI: Negative for abdominal pain, nausea, vomiting, diarrhea, and constipation, Back: Negative for injury and pain, : Negative for injury, bleeding, discharge, and swelling, Skin: Negative for injury, rash, and discoloration, Neuro: Negative for headache, weakness, numbness, tingling, and seizure, Psych: Negative for depression, anxiety, suicide ideation, homicidal ideation, and hallucinations, Allergy/Immunology: Negative for hives, rash, and allergies, Endocrine: Negative for neck swelling, polydipsia, polyuria, polyphagia, and marked weight changes, Hematologic/Lymphatic: Negative for swollen nodes, abnormal bleeding, and unusual bruising. Exam: 19:55 Constitutional: This is a well developed, well nourished patient who is awake, alert, mh7 and in no acute distress. Head/Face: Normocephalic, atraumatic. Eyes: Pupils equal round and reactive to light, extra-ocular motions intact. Lids and lashes normal. Conjunctiva and sclera are non-icteric and not injected. Cornea within normal limits. Periorbital areas with no swelling, redness, or edema. Chest/axilla: Normal chest wall appearance and motion. Nontender with no deformity. No lesions are appreciated. Cardiovascular: Regular rate and rhythm with a normal S1 and S2. No gallops, murmurs, or rubs. Normal PMI, no JVD. No pulse deficits. Respiratory: Lungs have equal breath sounds bilaterally, clear to auscultation and percussion. No rales, rhonchi or wheezes noted. No increased work of breathing, no retractions or nasal flaring. Abdomen/GI: Soft, non-tender, with normal bowel sounds. No distension or tympany. No guarding or rebound. No evidence of tenderness throughout. Back: No spinal tenderness. No costovertebral tenderness. Full range of motion. Skin: Warm, dry with normal turgor. Normal color with no rashes, no lesions, and no evidence of cellulitis. Neuro: Awake and alert, GCS 15, oriented to person, place, time, and situation. Cranial nerves II-XII grossly intact. Motor strength 5/5 in all extremities. Sensory grossly intact. Cerebellar exam normal. Normal gait. Psych: Awake, alert, with orientation to person, place and time. Behavior, mood, and affect are within normal limits. 19:55 Musculoskeletal/extremity: Extremities: noted in the left hip: decreased ROM, left lower extremity shortened, ROM: limited active range of motion, in the left leg, limited passive range of motion, in the left leg, Circulation is intact in all extremities. Pulses: are normal with no appreciated deficits, Perfusion: the patient is normally perfused throughout, Perfusion: the extremity is normally perfused throughout, Calf tenderness, is absent, Edema, is not appreciated, Sensation intact. Compartment Syndrome exam of affected extremity: is normal. no numbness, no tingling, no sensation deficit, no palor, no weak pulses, Joints: the left hip displays limited range of motion, Weight bearing: is unable to bear weight, Tendon exam: specific tendon testing normal through active and passive range of motion Vital Signs: 19:42 BP 171 / 81; Pulse 80; Resp 16; Temp 97.3; Pulse Ox 97% on R/A; Weight 81.65 kg; Height rv 5 ft. 3 in. (160.02 cm); Pain 7/10; 20:30 BP 154 / 91; Pulse 70; Resp 17; Pulse Ox 96% on R/A; rv 21:15 BP 146 / 77; Pulse 66; Resp 19; Pulse Ox 98% on 2 lpm NC; rv 22:00 BP 144 / 93; Pulse 64; Resp 19; Pulse Ox 96% on 2 lpm NC; rv 22:45 BP 159 / 95; Pulse 74; Resp 21; Pulse Ox 96% on 2 lpm NC; rv 12/10 00:00 BP 120 / 91; Pulse 64; Resp 17; Pulse Ox 98% on 2 lpm NC; rv 00:30 BP 143 / 86; Pulse 66; Resp 19; Pulse Ox 99% on 2 lpm NC; rv 01:30 BP 141 / 79; Pulse 69; Resp 16; Pulse Ox 98% on 2 lpm NC; rr5 02:25 BP 147 / 80; Pulse 62; Resp 17; Pulse Ox 99% on 2 lpm NC; rr5 03:00 BP 148 / 75; Pulse 57; Resp 18; Pulse Ox 99% on 2 lpm NC; rv 04:00 BP 135 / 72; Pulse 58; Resp 14; Pulse Ox 99% on 2 lpm NC; rv 05:00 BP 138 / 82; Pulse 60; Resp 17; Pulse Ox 99% on 2 lpm NC; rv 06:00 BP 135 / 74; Pulse 61; Resp 18; Pulse Ox 97% on 2 lpm NC; rv 12/09 19:42 Body Mass Index 31.89 (81.65 kg, 160.02 cm) rv Michael Coma Score: 12/09 21:00 Eye Response: spontaneous(4). Verbal Response: oriented(5). Motor Response: obeys rv commands(6). Total: 15. 22:00 Eye Response: spontaneous(4). Verbal Response: oriented(5). Motor Response: obeys rv commands(6). Total: 15. 23:00 Eye Response: spontaneous(4). Verbal Response: oriented(5). Motor Response: obeys rv commands(6). Total: 15. /17 00:00 Eye Response: spontaneous(4). Verbal Response: oriented(5). Motor Response: obeys rv commands(6). Total: 15. 01:00 Eye Response: spontaneous(4). Verbal Response: oriented(5). Motor Response: obeys rv commands(6). Total: 15. 02:00 Eye Response: spontaneous(4). Verbal Response: oriented(5). Motor Response: obeys rv commands(6). Total: 15. 03:00 Eye Response: spontaneous(4). Verbal Response: oriented(5). Motor Response: obeys rv commands(6). Total: 15. 04:00 Eye Response: spontaneous(4). Verbal Response: oriented(5). Motor Response: obeys rv commands(6). Total: 15. 05:00 Eye Response: spontaneous(4). Verbal Response: oriented(5). Motor Response: obeys rv commands(6). Total: 15. Procedures: 07:30 Reduction: of the left hip, using traction, manipulation, Patient tolerated well. Post mh7 reduction film - not reduced. Moderate sedation: Pre-procedure assessment: the patient has been NPO 2 hour(s) prior to arrival, ASA physical classification: II - mild/mod systemic disease that does not interfere with daily routines, Airway assessment: able to hyperextend neck, able to maintain airway, can open mouth without difficulty, Mallampati classification of tongue size: I - faucial pillars, soft palate, and uvula can be fully visualized, Monitoring during procedure: court recording monitor, continuous pulse oximetry, nurse at bedside at all times, Medications employed: Fentanyl, 100 mcg(s), Propofol 80 mg, Post-procedure assessment: the patient is moderately sedated. MDM: 04:19 Differential diagnosis: hip fracture, intertrochanteric fracture, femoral neck mh7 fracture, femoral shaft fracture. Differential diagnosis: Hip dislocation. Data reviewed: vital signs, nurses notes, EMS record, lab test result(s), CBC, electrolytes, radiologic studies, plain films. Data interpreted: Pulse oximetry: on room air is 99 %. Interpretation: normal. Counseling: I had a detailed discussion with the patient and/or guardian regarding: the historical points, exam findings, and any diagnostic results supporting the discharge/admit diagnosis, the presence of at least one elevated blood pressure reading (>120/80) during this emergency department visit, lab results, radiology results, the need to transfer to another facility, for higher level of care, [facility] does not immediately have the required specialist. Response to treatment: the patient's symptoms have mildly improved after treatment. 04:22 Patient medically screened. [facility] 07:30 ED course: Reduction with procedural sedation three times with obvious success based on 7 exam and felt left hip relocate. On post reduction x ray hip not reduced.. 12/09 21:59 Order name: CBC with Diff; Complete Time: 02:14 [facility] 12/09 21:59 Order name: Basic Metabolic Panel; Complete Time: 02:14 7 12/09 21:59 Order name: Protime (+inr); Complete Time: 02:14 7 12/09 21:59 Order name: Ptt, Activated; Complete Time: 02:14 [facility] 12/09 21:59 Order name: LFT's; Complete Time: 02:14 [facility] 12/09 19:53 Order name: Hip Left 2 View XRAY; Complete Time: 21:42 7 12/09 19:53 Order name: Pelvis XRAY; Complete Time: 21:42 7 12/09 21:43 Order name: Hip Left 2 View XRAY [facility] 12/09 23:02 Order name: Hip Left 2 View XRAY [facility] 12/10 02:15 Order name: SARS-COV-2 RT PCR; Complete Time: 02:56 EDMS 12/09 19:54 Order name: Saline Lock; Complete Time: 20:05 mh7 Administered Medications: 12/09 20:05 Drug: morphine 4 mg Route: IVP; Site: right forearm; rv 12/10 00:42 Follow up: Response: No adverse reaction rv 12/09 20:06 Drug: Zofran (Ondansetron) 4 mg Route: IVP; Site: right forearm; rv 12/10 00:41 Follow up: Response: No adverse reaction rv 12/09 21:23 Drug: fentaNYL (PF) 50 mcg {Note: RASS 0.} Route: IVP; Site: right forearm; rv 12/10 00:41 Follow up: Response: No adverse reaction rv 12/09 21:24 Drug: Propofol 20 mg Route: IVP; Site: right forearm; rv 12/10 00:41 Follow up: Response: No adverse reaction rv 12/09 21:24 Drug: Propofol 20 mg Route: IVP; Site: right forearm; rv 12/10 00:39 Follow up: Response: No adverse reaction rv 12/09 21:25 Drug: Propofol 20 mg Route: IVP; Site: right forearm; rv 12/10 00:39 Follow up: Response: No adverse reaction rv 12/09 21:27 Drug: Propofol 20 mg Route: IVP; Site: right forearm; rv 12/10 00:39 Follow up: Response: No adverse reaction rv 12/09 21:32 Drug: fentaNYL (PF) 50 mcg Route: IVP; Site: right forearm; rv 12/10 00:40 Follow up: Response: No adverse reaction; RASS: Drowsy (-1) rv 12/09 21:32 Drug: Propofol 20 mg Route: IVP; Site: right forearm; rv 12/10 00:39 Follow up: Response: No adverse reaction rv 12/09 21:33 Drug: Propofol 5 mcg/kg/min Route: IV; Rate: calculated rate; Site: right forearm; rv 12/10 05:02 Follow up: Response: No adverse reaction; IV Status: Order to discontinue infusion rv 12/09 22:50 Drug: fentaNYL (PF) 50 mcg Route: IVP; Site: right antecubital; rv 12/10 00:39 Follow up: Response: No adverse reaction; RASS: Drowsy (-1) rv 12/09 22:55 Drug: fentaNYL (PF) 50 mcg Route: IVP; Site: right antecubital; rv 12/10 00:39 Follow up: Response: No adverse reaction; RASS: Drowsy (-1) rv 12/09 22:57 Drug: Versed (midazolam) 2 mg Route: IVP; Site: right antecubital; rv 12/10 00:38 Follow up: Response: No adverse reaction rv 12/09 23:50 Drug: fentaNYL (PF) 50 mcg Route: IVP; Site: right forearm; rv 12/10 00:38 Follow up: Response: No adverse reaction; RASS: Drowsy (-1) rv 00:01 Drug: Versed (midazolam) 2 mg Route: IVP; Site: right forearm; rv 00:38 Follow up: Response: No adverse reaction rv Disposition: 12/10/20 04:22 Transfer ordered to [facility]. Diagnosis is Dislocation of internal left hip prosthesis. - Reason for transfer: Higher level of care. - Accepting physician is Dr. Landin/Dr. Wolf. - Condition is Stable. - Problem is new. - Symptoms are unchanged. Signatures: Dispatcher [employer] EDMS Elmo Narayan RN RN rv Praneeth Doll MD MD mh7 Corrections: (The following items were deleted from the chart) 01:33 00:36 CORONAVIRUS+MR.LAB.BRZ ordered. EDNC EDMS 06:20 04:22 12/10/2020 04:22 Transfer ordered to [facility]. rv Diagnosis is Dislocation of internal left hip prosthesis. Reason for transfer: Higher level of care. Accepting physician is Dr. Landin/Dr. Wolf. Condition is Stable. Problem is new. Symptoms are unchanged. mh7
[2020-12-10 06:28] VITALS: TEMP 97.3
[2020-12-10 06:46] VITALS: BP 135/74; O2SAT 97
--- NOTE | 2020-12-10 09:18 | RAD REPORT ---
EXAM DESCRIPTION: RAD - Hip Left 2 View - 12/09/2020 9:58 pm CLINICAL HISTORY: post reduction COMPARISON: Hip Left 2 View dated 12/09/2020; Hip Left 1 View dated 08/20/2018 FINDINGS: AP and cross-table lateral views of the left hip were obtained labeled post reduction. Femoral component remains dislocated positioned superior and lateral to the acetabular cup.
--- NOTE | 2020-12-10 22:27 | RAD REPORT ---
EXAM DESCRIPTION: RAD - Hip Left 2 View - 12/10/2020 12:35 am COMPARISON: Left hip radiographs December 09, 2020 report only CLINICAL HISTORY: [facility] MAIN post reduction FINDINGS: 2 views of the left hip demonstrate persistent dislocation of the left hip arthroplasty. T he femoral arthroplasty component is dislocated approximately 2.8 cm superolateral. Partially visuali zed right hip arthroplasty. No acute fractures. Left hip swelling is noted. 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 Electronically signed by: Sammy Zaragoza MD 12/10/2020 12:50 AM CDT Due to temporary technical issues with the PACS/Fluency reporting system, reports are being signed by the in house radiologists without review as a courtesy to insure prompt reporting. The interpreting radiologist is fully responsible for the content of the report.
== END 2020-12-10 06:20 | disposition short-term general hospital (02) ==
LOC: ER 19:38
PROC: 0SSBXZZ Reposition Left Hip Joint, External Approach (ICD-10-PCS; principal; 2020-12-09)
DX: T84.021A Dislocation of internal left hip prosthesis, initial encounter (principal); Z96.643 Presence of artificial hip joint, bilateral; Z20.822 Contact with and (suspected) exposure to COVID-19
CPT/HCPCS: 85025; 80048; 36415; 85610; 80076; 85730; 72170; 73502 ×3; 27265; U0003; J2704 ×2; J2250; J3010 ×3; J7030; J2405; 99285

== ENCOUNTER 2021-09-12 07:51 | Day surgery (SDC) | payer OTHER ==
[2021-09-07 17:02] LABS: Absolute Lymphocytes (CBC) 1.4 K/uL (0.7-4.9); Hematocrit 39.2 % (39.6-49.0); MPV 9.2 fL (7.6-11.3); RBC Red Blood Cell Count 4.67 M/uL (4.33-5.43)
[2021-09-07 17:03] LABS: Protime INR 0.93
--- NOTE | 2021-09-07 17:37 | RAD REPORT ---
EXAM DESCRIPTION: RAD - Chest Pa And Lat (2 Views) - 09/07/2021 4:26 pm CLINICAL HISTORY: pre op COMPARISON: <Comparisons> FINDINGS: Lines: None. Lungs: No evidence of edema or pneumonia. Pleural: No significant pleural effusions or pneumothorax. Cardiac: The heart size is within normal limits. Bones: No acute fractures. Bridging osteophytes in the spine. Other: IMPRESSION: No acute cardiopulmonary disease.
[2021-09-07 21:02] LABS: BUN Blood Urea Nitrogen 20 mg/dL (7-18); Bicarbonate 27 mmol/L (21-32); Glucose Level 98 mg/dL (74-106); Sodium Level 138 mmol/L (136-145)
[2021-09-12] MEDS ORDERED: Ringers Lactate 1,000 ML IV ONE (08:32)
[2021-09-12] MEDS ORDERED: CEFAZOLIN/SWI 2gm 2 GM/20 ML SYR ONE (09:05)
[2021-09-12] MEDS ORDERED: FENTANYL CITR 100 MCG/2 ML ONE ×2 (09:17→10:18)
[2021-09-12] MEDS ORDERED: propofoL 200 MG/20 ML VIAL IV ONE (09:17)
[2021-09-12] MEDS ORDERED: MIDAZOLAM HCL 2 MG/2 ML INJ ONE (09:17)
[2021-09-12] MEDS ORDERED: dexAMETHasone 10 MG/ML VIAL ONE (09:17)
[2021-09-12] MEDS ORDERED: LIDOCAINE 1% MPF 5 ML VIAL ONE (09:17)
[2021-09-12] MEDS ORDERED: PHENAZOPYRIDINE 100MG TAB PO ONE ×2 (10:48→10:55)
[2021-09-12] MEDS ORDERED: CODEINE 30MG/APAP 300MG TAB PO PRN (10:48)
[2021-09-12] MEDS: HYDROMORPHONE HCL 1 MG/ML INJ ONE ×2 (10:57→11:06)
--- NOTE | 2021-09-12 12:09 | P.OP ---
Preoperative diagnosis: BPH with Obstruction/LUTS Postoperative diagnosis: BPH with Obstruction/LUTS Primary procedure: Prostatic Urethral Lift/UroLift Secondary procedure: Cystoscopy Anesthesia: LMA General Estimated blood loss: <5cc Specimen: none Findings: lateral lobar hypertrophy with median bar elevation Operative Technique: Indication for Procedure: Mr. Mckeon is a 56-year-old gentleman who presented to the urology clinic with bothersome lower urinary symptoms. AUA symptom score 21/35. He was attempted on medical therapy, but did not have significant improvement. He eventually elected to proceed with surgical therapy and was counseled on the options for management there to include bipolar TURP, laser therapies, and the prostatic urethral lift. As his prostate was approximately 30 g, either of those procedures would be successful. We also discussed the potential addition of a 5 alpha reductase inhibitor, but he did not desire the adverse sexual dysfunction side effect potential. Procedure note: The patient was consented in the preoperative holding area before being transferred to the operative suite where general anesthesia was induced. He was given Ancef 2 g IV antimicrobial prophylaxis and pneumo boots were provided for DVT prophylaxis. He was placed in the high lithotomy position, padded and secured to the table appropriately. His genitalia were prepped using Hibiclens and draped in standard fashion. The case was begun using a [place] specially designed cystoscope for the prostatic urethral lift as well as visual obturator to traverse the urethra and enter the bladder. The bladder was briefly surveyed, and no mucosal lesions, foreign bodies or stones were noted throughout. The prostatic urethral lumen was assessed and the previously noted lateral lobar hypertrophy left greater than right was again visualized. The visual obturator bridge was then replaced with a UroLift delivery device. The first treatment was placed on the patient's left side approximately 2.0 cm distal to the bladder neck. The distal tip of the delivery device was then angled laterally approximately 20 degrees to compress the lateral lobe. The trigger was pulled, thereby deploying a needle containing the implant through the prostate. There was no evidence of pelvic contact at this point. The needle was then retracted, allowing 1 end of the implant to be delivered to the capsular surface of the prostate. The implant was then tensioned to assure capsular seating and removal of slack monofilament. The device was then angled back toward the midline and slowly was advanced approximately 3-4 mm until cystoscopic verification of the monofilament being centered in the delivery bay. The urethral end piece was then affixed to the monofilament and thereby tailoring the size of the implant. The excess filament was then severed. The device was then readvanced into the bladder. The sheath was left in place and the delivery device was then replaced with the cystoscope and bridge, and the implant location and opening affect were confirmed cystoscopically. The procedure was then repeated again on the Left side distally more toward the level of the verumontanum and an additional implant was placed there. I then turned my attention to the right side of the prostate and delivered an implant using the same methodology approximately 2 cm from the bladder neck on the right side and then an additional implant at the level of the verumontanum on the right side. The cystoscope was then readvanced into the bladder and the channel was surveyed. There was still some lateral lobar hypertrophy in the mid gland region, and so a fifth implant was placed in the mid gland on the left to address that tissue. Unfortunately, the needle contacted the pubis in that location; and attempts to redirect it were unsuccessful. So the implant did not successfully lodge. A new implant was reinserted, and that left lateral tissue in the mid gland was again coapted anteriorly, but less this time, and the needle did appropriately place with the tab compressing the tissue as desired. With good coaptation achieved, a similar implant was placed on the right side in the mid gland. In the end, lateral lobar compression apically and within the mid zone of the prostate was excellent. Final cystoscopy inspected the location and state of each implant and confirmed the presence of a continuous anterior channel. I then left the bladder full and placed an 18[place] coude tipped catheter into his bladder with ease. 15 cc of sterile water was placed in the balloon. The catheter was connected to a floor bag, and the patient was taken out of the lithotomy position. He was then awakened from general anesthesia, transferred to a stretcher, and then transferred to the recovery room in good condition. Complications: None. Discharge Disposition: He may remove the catheter himself at home tomorrow around 7 a.m. and should void within 6 hours. If he had difficulty voiding, he should come to the Urology Clinic for management. Subsequent follow up will be established in about 1 month's time to make an interval assessment of his symptomatology. Complications: None Drain(s): Other (Lopez catheter) Condition: Good
[2021-09-12] MEDS ORDERED: CODEINE 30MG/APAP 300MG TAB ONE (12:45)
[2021-09-12 14:26] VITALS: BP 148/78; TEMP 96.9; O2SAT 100
== END 2021-09-12 15:05 | disposition home or self-care (01) ==
LOC: OR 07:51
PROVIDERS: ATTEND Urology
PROC: 0T7D8DZ Dilation of Urethra with Intraluminal Device, Via Natural or Artificial Opening Endoscopic (ICD-10-PCS; principal; 2021-09-12 09:30)
DX: N40.1 Benign prostatic hyperplasia with lower urinary tract symptoms (principal); Z20.822 Contact with and (suspected) exposure to COVID-19
CPT/HCPCS: 52441; 52442 ×4; 93005; 85025; 87086; 80048; 36415; 85610; 71046; U0003; J2704; J2250; J3010; J1100; J1170; J0690; J7120; 87088

== ENCOUNTER 2022-04-24 15:00 | Inpatient (IN) | payer OTHER ==
--- OUTSIDE RECORDS SUMMARY | 2022-04-24 15:05 | XMS REPORT | Continuity of Care Document ---
:1965 Author Organization [facility] t Address [address] [place] [address] Care Team Providers Name Role Phone Ron Little Attending Clinician Unavailable YANCY GOODWIN Attending Clinician Unavailable Yoon Bruno MD, Ashely Good Attending Clinician YANCY GOODWIN Admitting Clinician Unavailable RUMA FOSTER Admitting Clinician Unavailable Payers Payer Name Policy Type Policy Number Effective Date Expiration Date S farhat [employer] MEDICARE [id number] 2020 ADV 00:00:00 Problems Condition Condition Condition Status Onset Resolution Last Treating Co mments Source Name Details Category Date Date Treatment Clinician Date Hip Hip Disease Active [facility]loc[facility]17 [facility] n, left n, left 00:00: Medical 00 Center Difficult Difficult Disease Active Overview: [facility] intubation intubation 00:00: g of this Medical 00 note Center might be different from the original. 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 Very limited cervical extension . Required CMAC D-blade with bougie and Bryant ETT and BURP manuever. Best CMAC view was 2b using video laryngosc opy. Allergies, Adverse Reactions, Alerts Allergy Allergy Status Severity Reaction(s) Onset Inactive Treating Comm ents Source Name Type Date Date Clinician NO KNOWN Allergy Active [facility] Family History Family Member Diagnosis Comments Start Date Stop Date Source Natural father Heart disease [facility] Natural father Hyperlipidemia [facility] Natural father Hypertension [facility] Social History Social Habit Start Date Stop Date Quantity Comments Source History SDOH [facility] Alcohol Std Drinks [facility] Center History SDOH [facility] Alcohol Binge Medical [facility] History SDOH [facility] Alcohol Comment Medical C enter Alcohol intake 2020-12-12 2020-12-[address] [address] [facility] 00:[facility] 00[facility]00 non-drinker Medical Cente r (finding) Tobacco use and 2020-12-10 2020-12-[address] [facility] [address] Ilene kes exposure 00:00:00 00:00:00 Medical Center History SDOH 2020-12-10 2020-12-[address] [facility] Alcohol Frequency 00:00:00 00:00:00 Medical Center Sex Assigned At [address] [facility] kes 00:00:00 00:00:00 Medical Center Smoking Status Start Date Stop Date Source Never smoker [facility] Center Medications Ordered Filled Start Stop Current Ordering Indication Dosage Frequency Signature Comments Components Source Medication Medication Date Date Medication? Clinician (SIG) Name Name pregabalin Yes 150mg QD Take [address] (LYRICA) 4-19 mg by Lulatoya 150 MG 17:14: mouth Medical capsule 52 daily. Center HYDROcodone Yes pain 1{tbl} Take [address] -acetaminop 4-19 tablet by Ros uriostegui (NORCO 00:00: mouth Medica l 7.5-325) 00 every 8 Center 7.5-325 mg (eight) per tablet hours as needed for Pain. Max Daily Amount: 3 tablets Vital Signs Vital Name Observation Time Observation Value Comments Source HEIGHT 2020-12-10 07:40:00 160 cm WEIGHT 2020-12-10 07:40:00 85.957 kg HEIGHT 2020-12-10 07:40:00 160 cm WEIGHT 2020-12-10 07:40:00 85.957 kg Procedures This patient has no known procedures. Plan of Care Planned Activity Planned Date Details Comments Source Future Scheduled 2022-04-26 INFLUENZA VACCINE (#1) [facility] 00:00:00 [code = INFLUENZA Medical Ce nter VACCINE (#1)] Future Scheduled 2021-08-[address] [facility] Test 00:00:00 (12+) [code = Medical Center DEPRESSION SCREENING (12+)] Future Scheduled 2021-05-[address] [facility] Test 00:00:00 WELLNESS (YEAR 2 or Medical Center FIRST YEAR if no IPPE) [code = MEDICARE ANNUAL WELLNESS (YEAR 2 or FIRST YEAR if no IPPE)] Future Scheduled 2014-02-07 SHINGLES VACCINES ([address] [facility] Test 00:00:00 2) [code = SHINGLES Medical Center VACCINES (1 of 2)] Future Scheduled 1999-02-07 Lipid panel (procedure) [facility] Test 00:00:00 [code = 06504352] Medical Ce nter Future Scheduled 1983-02-07 DTAP/TDAP/TD VACCINES [facility] Test 00:00:00 (1 - Tdap) [code = Medical C enter DTAP/TDAP/TD VACCINES (1 - Tdap)] Future Scheduled 1982-02-07 HEPATITIS C SCREENING [facility] Test 00:00:00 [code = HEPATITIS C Medical Center SCREENING] Future Scheduled 1965 COVID-19 VACCINE (#1) [facility] Test 00:00:00 [code = COVID-[address] VACCINE (#1)] Future Scheduled 1964 Screening for malignant [facility] Test 00:00:00 neoplasm of colon Medical Ce nter (procedure) [code = 543456714] Future Scheduled 1965 Sigmoidoscopy [code = [facility] Test 00:00:00 Sigmoidoscopy] Medical Cente r Future Scheduled 1964 CT Colonography (combo) [facility] Test 00:00:00 [code = CT Colonography [facility] (combo)] Future Scheduled 1964 Screening for malignant [facility] Test 00:00:00 neoplasm of colon Medical Ce nter (procedure) [code = 790462412] Future Scheduled 1964 Screening for malignant [facility] Test 00:00:00 neoplasm of colon Medical Ce nter (procedure) [code = 455714211] Future Scheduled 1964 Screening for malignant [facility] Test 00:00:00 neoplasm of colon Medical Ce nter (procedure) [code = 700238111] Encounters Start End Encounter Admission Attending Care Care Encounter Source Date/Time Date/Time Type Type Clinicians Facility Department ID 2022-02-14 Outpatient Little, STLMLC STLMLC [id number] Common 15:59:01 Ron [facility] 2022-02-06 Outpatient Little, STLMLC STLMLC [id number] Common 10:55:01 Ron [facility] 2022-02-05 Outpatient Little, STLMLC STLMLC [id number] Common 13:46:01 Ron [facility] 2021-09-20 Outpatient Little, STLMLC STLMLC [id number] Common 12:25:25 Ron [id number] [facility] 2021-09-20 Outpatient Little, STLMLC STLMLC [id number] Common 12:11:04 Ron [id number] [facility] 2021-09-20 Outpatient Little, STLMLC STLMLC [id number] Common 11:57:53 Ron [id number] [facility] 2021-09-20 Outpatient Little, STLMLC STLMLC [id number] Common 11:56:54 Ron [id number] [facility] 2020-12-10 Inpatient UR [facility] [id number] SLE 07:17:00 YANCY 2022-02-12 2022-02-12 ambulatory STLMLC STLMLC [id number] Common 00:00:00 00:00:00 [facility] 2022-02-02 2022-02-02 ambulatory STLMLC STLMLC [id number] Common 00:00:00 00:00:00 [facility] 2022-01-26 2022-01-26 ambulatory STLMLC STLMLC [id number] Common 00:00:00 00:00:00 [facility] 2021-10-25 2021-10-25 ambulatory STLMLC STLMLC [id number] Common 00:00:00 00:00:00 [facility] 2021-08-30 2021-08-30 ambulatory STLMLC STLMLC [id number] Common 00:00:00 00:00:00 [facility] 2021-08-29 2021-08-29 ambulatory STLMLC STLMLC [id number] Common 00:00:00 00:00:00 [facility] 2021-07-05 2021-07-05 ambulatory STLMLC STLMLC [id number] Common 00:00:00 00:00:00 [facility] 2021-06-24 2021-06-24 Refill Shiekh [facility] [id number] [address] [place] [address] 00:00:00 00:00:00 Brice Bruno [facility] 2021-05-29 2021-05-29 Outpatient STLMLC STLMLC [id number] Common 00:00:00 00:00:00 [facility] 2021-04-19 2021-04-19 Outpatient STLMLC STLMLC [id number] Common 00:00:00 00:00:00 [facility] 2021-03-16 2021-03-16 Outpatient STLMLC STLMLC [id number] Common 00:00:00 00:00:00 [facility] 2021-03-15 2021-03-15 Outpatient STLMLC STL[facility] [id number] Common 00:00:00 00:00:00 [facility] 2020-12-15 2020-12-15 Outpatient STLMLC STLMLC [id number] Common 00:00:00 00:00:00 [facility] 2020-12-14 2020-12-14 Outpatient LIBIA TINAJERO [id number] Libia 00:00:00 00:00:00 Seybol d 2020-10-19 2020-10-19 Outpatient STLMLC STLMLC [id number] Common 00:00:00 00:00:00 [facility] 2020-09-29 2020-09-29 Outpatient STLMLC STLMLC [id number] Common 00:00:00 00:00:00 [facility] 2020-09-22 2020-09-22 Outpatient STLMLC STLMLC [id number] Common 00:00:00 00:00:00 [facility] 2020-09-22 2020-09-22 Outpatient STLMLC STLMLC [id number] Common 00:00:00 00:00:00 [facility] 2020-08-25 2020-08-25 Outpatient STLMLC STLMLC [id number] Common 00:00:00 00:00:00 [facility] 2020-08-16 2020-08-16 Outpatient STLMLC STL[facility]C [id number] Common 00:00:00 00:00:00 [facility] 2020-08-12 2020-08-12 Outpatient STLMLC STLMLC [id number] Common 00:00:00 00:00:00 [facility] 2020-08-09 2020-08-09 Outpatient STLMLC STLMLC [id number] Common 00:00:00 00:00:00 [facility] 2020-07-29 2020-07-29 Outpatient STLMLC STLMLC [id number] Common 00:00:00 00:00:00 [facility] 2020-07-28 2020-07-28 Outpatient STLMLC STLMLC [id number] Common 00:00:00 00:00:00 [facility] 2020-06-24 2020-06-24 Outpatient STLMLC STLMLC [id number] Common 00:00:00 00:00:00 [facility] 2020-06-14 2020-06-14 Outpatient STLMLC STLMLC [id number] Common 00:00:00 00:00:00 [facility] Results Test Description Test Test Results Result Source Time Comments Comments TISSUE EXAM 2020-11- Surgical Pathology Report 20 Case: [id number] Authorizing 16:25:00 Provider: Mendez Lane MD Collected: 12/10/2020 08:27 PM Ordering Location: [address] Received: 12/12/2020 08:17 AM Service Pathologist: Wally Alcaraz MD Specimen: Explant, Old hardware for ID ORTHOPEDIC FIELD RECORDER, REVISION, LEFT TOTAL HIP ARTHROPLASTY:1 ARTIFICIAL FEMORAL HEAD IDENTIFIED (GROSS ONLY) Signing Pathologist Direct Phone Line: [phone] signed by Wally Alcaraz MD on 12/13/2020 at 4:25 [id number] dislocation dual-mobility head of left total hip arthroplastyExplantReceived fresh labeled the patient's name, accession number and "explant" is a 4.0 x 4.0 x 3.4 cm arce, circular, synthetic piece of hardware, which is consistent with an artificial femoral head. A gross photograph is taken. No sections are submitted. This case is for gross examination only.CLIF Martinez, HT (ASCP)N/[facility], Department of Pathology, [address] [place], [place] [id number], [facility], [facility] of [facility], [address] [place] [id number], [facility], Department of Pathology, [address] [place], [place] [address], BASIC METABOLIC PANEL 2020-12-12 05:56:00 Test Item Value Reference Range Interpretation Comme nts SODIUM (BEAKER) (test code 139 meq/L 136-145 = 381) POTASSIUM (BEAKER) (test 4.5 meq/L 3.5-5.1 code = 379) CHLORIDE (BEAKER) (test 108 meq/L 98-107 H code = 382) CO2 (BEAKER) (test code = 27 meq/L 22-29 355) BLOOD UREA NITROGEN 13 mg/dL 7-21 (BEAKER) (test code = 354) CREATININE (BEAKER) (test 0.59 mg/dL 0.57-1.25 code = 358) GLUCOSE RANDOM (BEAKER) 96 mg/dL 70-105 (test code = 652) CALCIUM (BEAKER) (test 7.7 mg/dL 8.4-10.2 L code = 697) EGFR (BEAKER) (test code = 142 mL/min/1.73 sq m ESTIMATED GFR IS NOT 1092) ACCURATE CRE ATININE CLEARANCE IN NM EDICTING GLOMERULAR FILT RATION RATE. ESTIMATED GFR IS NOT APPLICABLE FOR DIALYSIS PATIENTS. Accounts Payable Bookkeeper ID - ADMINCBC W/PLT COUNT & AUTO [id number] 05:20:00 Test Item Value Reference Range Interpretation Comments WHITE BLOOD CELL COUNT (BEAKER) 6.8 K/ L 3.5-10.5 (test code = 775) RED BLOOD CELL COUNT (BEAKER) 3.40 M/ L 4.63-6.08 L (test code = 761) HEMOGLOBIN (BEAKER) (test code = 9.8 GM/DL 13.7-17.5 L 410) HEMATOCRIT (BEAKER) (test code = 30.7 % 40.1-51.0 L 411) MEAN CORPUSCULAR VOLUME (BEAKER) 90.3 fL 79.0-92.2 (test code = 753) MEAN CORPUSCULAR HEMOGLOBIN 28.8 pg 25.7-32.2 (BEAKER) (test code = 751) MEAN CORPUSCULAR HEMOGLOBIN CONC 31.9 GM/DL 32.3-36.5 L (BEAKER) (test code = 752) RED CELL DISTRIBUTION WIDTH 14.9 % 11.6-14.4 H (BEAKER) (test code = 412) PLATELET COUNT (BEAKER) (test 149 K/CU MM 150-450 L code = 756) MEAN PLATELET VOLUME (BEAKER) 11.5 fL 9.4-12.4 (test code = 754) NUCLEATED RED BLOOD CELLS 0 /100 WBC 0-0 (BEAKER) (test code = 413) NEUTROPHILS RELATIVE PERCENT 63 % (BEAKER) (test code = 429) LYMPHOCYTES RELATIVE PERCENT 26 % (BEAKER) (test code = 430) MONOCYTES RELATIVE PERCENT 10 % (BEAKER) (test code = 431) EOSINOPHILS RELATIVE PERCENT 0 % (BEAKER) (test code = 432) BASOPHILS RELATIVE PERCENT 0 % (BEAKER) (test code = 437) NEUTROPHILS ABSOLUTE COUNT 4.25 K/ L 1.78-5.38 (BEAKER) (test code = 670) LYMPHOCYTES ABSOLUTE COUNT 1.74 K/ L 1.32-3.57 (BEAKER) (test code = 414) MONOCYTES ABSOLUTE COUNT (BEAKER) 0.70 K/ L 0.30-0.82 (test code = 415) EOSINOPHILS ABSOLUTE COUNT 0.02 K/ L 0.04-0.54 L (BEAKER) (test code = 416) BASOPHILS ABSOLUTE COUNT (BEAKER) 0.02 K/ L 0.01-0.08 (test code = 417) IMMATURE GRANULOCYTES-RELATIVE 0 % 0-1 PERCENT (BEAKER) (test code = 2801) [id number] 06:41:00 Test Item Value Reference Range Interpretation Comments PHOSPHORUS (BEAKER) (test code = 3.1 mg/dL 2.3-4.7 604) Accounts Payable Bookkeeper ID - EDASIBASIC METABOLIC [id number] 06:41:00 Test Item Value Reference Range Interpretation Comments SODIUM (BEAKER) 138 meq/L 136-145 (test code = 381) POTASSIUM (BEAKER) 5.1 meq/L 3.5-5.1 (test code = 379) CHLORIDE (BEAKER) 106 meq/L 98-107 (test code = 382) CO2 (BEAKER) (test 25 meq/L 22-29 code = 355) BLOOD UREA NITROGEN 14 mg/dL 7-21 (BEAKER) (test code = 354) CREATININE (BEAKER) 0.65 mg/dL 0.57-1.25 (test code = 358) GLUCOSE RANDOM 131 mg/dL 70-105 H (BEAKER) (test code = 652) CALCIUM (BEAKER) 8.1 mg/dL 8.4-10.2 L (test code = 697) EGFR (BEAKER) (test 127 mL/min/1.73 ESTIM ATED GFR IS code = 1092) sq m NOT ACCURATE CREATININE CLEARANCE IN PREDICTING GLOMERULAR FILTRATION RATE . ESTIMATED GFR I S NOT APPLICABLE FOR DIALYSIS PATIEN TS. Accounts Payable Bookkeeper ID - [id number] 06:41:00 Test Item Value Reference Range Interpretation Comments MAGNESIUM (BEAKER) (test code = 1.9 mg/dL 1.6-2.6 627) Accounts Payable Bookkeeper ID - EDASICBC W/PLT COUNT & AUTO [id number] 06:19:00 Test Item Value Reference Range Interpretation Comments WHITE BLOOD CELL COUNT (BEAKER) 9.4 K/ L 3.5-10.5 (test code = 775) RED BLOOD CELL COUNT (BEAKER) 4.27 M/ L 4.63-6.08 L (test code = 761) HEMOGLOBIN (BEAKER) (test code = 12.1 GM/DL 13.7-17.5 L 410) HEMATOCRIT (BEAKER) (test code = 38.5 % 40.1-51.0 L 411) MEAN CORPUSCULAR VOLUME (BEAKER) 90.2 fL 79.0-92.2 (test code = 753) MEAN CORPUSCULAR HEMOGLOBIN 28.3 pg 25.7-32.2 (BEAKER) (test code = 751) MEAN CORPUSCULAR HEMOGLOBIN CONC 31.4 GM/DL 32.3-36.5 L (BEAKER) (test code = 752) RED CELL DISTRIBUTION WIDTH 14.7 % 11.6-14.4 H (BEAKER) (test code = 412) PLATELET COUNT (BEAKER) (test 183 K/CU MM 150-450 code = 756) MEAN PLATELET VOLUME (BEAKER) 11.0 fL 9.4-12.4 (test code = 754) NUCLEATED RED BLOOD CELLS 0 /100 WBC 0-0 (BEAKER) (test code = 413) NEUTROPHILS RELATIVE PERCENT 86 % (BEAKER) (test code = 429) LYMPHOCYTES RELATIVE PERCENT 6 % (BEAKER) (test code = 430) MONOCYTES RELATIVE PERCENT 7 % (BEAKER) (test code = 431) EOSINOPHILS RELATIVE PERCENT 0 % (BEAKER) (test code = 432) BASOPHILS RELATIVE PERCENT 0 % (BEAKER) (test code = 437) NEUTROPHILS ABSOLUTE COUNT 8.09 K/ L 1.78-5.38 H (BEAKER) (test code = 670) LYMPHOCYTES ABSOLUTE COUNT 0.59 K/ L 1.32-3.57 L (BEAKER) (test code = 414) MONOCYTES ABSOLUTE COUNT (BEAKER) 0.70 K/ L 0.30-0.82 (test code = 415) EOSINOPHILS ABSOLUTE COUNT 0.00 K/ L 0.04-0.54 L (BEAKER) (test code = 416) BASOPHILS ABSOLUTE COUNT (BEAKER) 0.01 K/ L 0.01-0.08 (test code = 417) IMMATURE GRANULOCYTES-RELATIVE 0 % 0-1 PERCENT (BEAKER) (test code = 2801) RAD, PELVIS, 1 OR 2 [id number] 00:06:00Reason for exam:->Hip dislocation, left (HCC) [facility] CENTERName: RAMON LUGO : 1965 Sex: MFINALREPORT CLINICAL HISTORY: post op TECHNIQUE: 2 views of the left hip, single AP view of the pelvis. COMPARISON: None IMPRESSION: Postsurgical changes of a left hip arthroplasty. Thefemoral head component is well-seated in the acetabular cup. No periprosthetic fracture or hardware complication is identified. Heterotopic ossification surrounding the left hip. Postsurgical changes of a prior right hip arthroplasty. Soft tissue edema and subcutaneous emphysema around the left hip. Surgical skin renita overlie the left hip. Pelvis is intact. Degenerative changes of the lower lumbarspine. Signed: Yancy Payan [facility] Verified Date/Time: 12/11/2020 00:06:15 RAD, HIP, 2-3 VIEWS, LEFT, TO INCL PELVIS WHEN [id number] 00:06:00Reason for exam:->[facility] RAMON LUGO : 1965 Sex: MFINALREPORT CLINICAL HISTORY: post op TECHNIQUE: 2 views of the left hip, single AP view of the pelvis. COMPARISON: None IMPRESSION: Postsurgical changes of a left hip arthroplasty. Thefemoral head component is well-seated in the acetabular cup. No periprosthetic fracture or hardware complication is identified. Heterotopic ossification surrounding the left hip. Postsurgical changes of a prior right hip arthroplasty. Soft tissue edema and subcutaneous emphysema around the left hip. Surgical skin renita overlie the left hip. Pelvis is intact. Degenerative changes of the lower lumbarspine. Signed: Yancy Payan [facility] Verified Date/Time: 12/11/2020 00:06:15 CBC W/PLT COUNT & AUTO [id number] 20:43:00 Test Item Value Reference Range Interpretation Comments WHITE BLOOD CELL COUNT (BEAKER) 8.5 K/ L 3.5-10.5 (test code = 775) RED BLOOD CELL COUNT (BEAKER) 3.88 M/ L 4.63-6.08 L (test code = 761) HEMOGLOBIN (BEAKER) (test code = 11.3 GM/DL 13.7-17.5 L 410) HEMATOCRIT (BEAKER) (test code = 34.7 % 40.1-51.0 L 411) MEAN CORPUSCULAR VOLUME (BEAKER) 89.4 fL 79.0-92.2 (test code = 753) MEAN CORPUSCULAR HEMOGLOBIN 29.1 pg 25.7-32.2 (BEAKER) (test code = 751) MEAN CORPUSCULAR HEMOGLOBIN CONC 32.6 GM/DL 32.3-36.5 (BEAKER) (test code = 752) RED CELL DISTRIBUTION WIDTH 14.6 % 11.6-14.4 H (BEAKER) (test code = 412) PLATELET COUNT (BEAKER) (test 146 K/CU MM 150-450 L code = 756) MEAN PLATELET VOLUME (BEAKER) 11.3 fL 9.4-12.4 (test code = 754) NUCLEATED RED BLOOD CELLS 0 /100 WBC 0-0 (BEAKER) (test code = 413) NEUTROPHILS RELATIVE PERCENT 86 % (BEAKER) (test code = 429) LYMPHOCYTES RELATIVE PERCENT 11 % (BEAKER) (test code = 430) MONOCYTES RELATIVE PERCENT 3 % (BEAKER) (test code = 431) EOSINOPHILS RELATIVE PERCENT 0 % (BEAKER) (test code = 432) BASOPHILS RELATIVE PERCENT 0 % (BEAKER) (test code = 437) NEUTROPHILS ABSOLUTE COUNT 7.27 K/ L 1.78-5.38 H (BEAKER) (test code = 670) LYMPHOCYTES ABSOLUTE COUNT 0.97 K/ L 1.32-3.57 L (BEAKER) (test code = 414) MONOCYTES ABSOLUTE COUNT (BEAKER) 0.21 K/ L 0.30-0.82 L (test code = 415) EOSINOPHILS ABSOLUTE COUNT 0.01 K/ L 0.04-0.54 L (BEAKER) (test code = 416) BASOPHILS ABSOLUTE COUNT (BEAKER) 0.01 K/ L 0.01-0.08 (test code = 417) IMMATURE GRANULOCYTES-RELATIVE 0 % 0-1 PERCENT (BEAKER) (test code = 2801) FL, FLUORO, NON-SPECIFIC, UP TO 1 [id number] 19:12:02Reason for exam:- >Hip dislocation, left (HCC) [facility] : 1965 Sex: MFluoroscopic unit utilized for a procedure performed in the OR. No interpretation was requested. Refer to the operative report for findings. Refer to PACS for patient radiation dose information.
[2022-04-24] MEDS ORDERED: ONDANSETRON 4 MG/2 ML VIAL ONE (16:23)
[2022-04-24] MEDS ORDERED: FAMOTIDINE 20 MG/2 ML VIAL IV ONE (16:24)
[2022-04-24] MEDS ORDERED: HYDROMORPHONE HCL 1 MG/ML INJ ONE ×3 (16:24→23:03)
--- NOTE | 2022-04-24 16:39 | RAD REPORT ---
EXAM DESCRIPTION: RAD - Chest Single View - 04/24/2022 4:26 pm CLINICAL HISTORY: ABDOMINAL DISTENTION COMPARISON: Chest Pa And Lat (2 Views) dated 09/07/2021; Chest Single View dated 12/14/2017; Chest Pa And Lat (2 Views) dated 11/27/2017; ABDOMEN 1 VIEW KUB dated 09/02/2013 FINDINGS: Lines: None. Lungs: No evidence of edema or pneumonia. Pleural: No significant pleural effusions or pneumothorax. Cardiac: The heart size is within normal limits. Mediastinum: Within normal limits. Bones: No acute fractures. Other: None IMPRESSION: No acute cardiopulmonary disease.
[2022-04-24 16:56] LABS: Albumin 4.4 g/dL (3.4-5.0); Bilirubin Total 0.6 mg/dL (0.2-1.0); Potassium 4.1 mmol/L (3.5-5.1); Protein, Total 8.6 g/dL (6.4-8.2)
[2022-04-24 16:56] LABS: Urine Blood Negative (Negative); Urine Glucose Negative (Negative); Urine Protein Negative (Negative); Urine Specific Gravity 1.025 (1.005-1.030); Urine pH 5.5 (5.0-7.0)
[2022-04-24 17:07] LABS: Protime INR 1.06
[2022-04-24 17:14] LABS: Urine Bacteria <20 /HPF (<20); Urine Mucus 1+ /HPF (None Seen); Urine RBC <5 /HPF (None Seen); Urine Sperm Present (None Seen)
[2022-04-24 17:26] LABS: Absolute Lymphocytes (CBC) 1.2 K/uL (0.7-4.9); Hematocrit 48.4 % (39.6-49.0); Lymphocytes % 14.9 % (15.3-44.8); MCV 88.6 fL (80-100); MPV 9.7 fL (7.6-11.3); RBC Red Blood Cell Count 5.46 M/uL (4.33-5.43)
--- NOTE | 2022-04-24 17:41 | RAD REPORT ---
EXAM DESCRIPTION: CTAbdomen Pelvis W Contrast - 04/24/2022 5:23 pm CLINICAL HISTORY: abdominal distention COMPARISON: CT ABD PELVIS W CONTRAST dated 09/01/2013; MRI LUMBAR SPINE W O CON dated 11/17/2014 TECHNIQUE: CT of the abdomen and pelvis was performed. All CT scans are performed using dose optimization technique as appropriate and may include automated exposure control or mA/KV adjustment according to patient size. FINDINGS: Lower chest: No acute abnormality. Liver: No acute abnormality or suspicious lesions. Biliary: Cholelithiasis. Stomach: No significant focal abnormality. Duodenum: No significant focal abnormality. Pancreas: No significant abnormality. Spleen: No significant abnormality. Adrenal: No suspicious lesions. Kidney/ureter: No hydronephrosis. No renal calculi. Retroperitoneum: No retroperitoneal adenopathy. Vascular: No aneurysm. Bowel: Small bowel obstruction identified. Fecalized small bowel is seen at the transition point. No obstructing mass is seen. This may be secondary to adhesions.. The small bowel measures over 4 cm. Mu ltiple air-fluid levels are present. The downstream small bowel is decompressed. Colonic diverticulos is. No evidence of acute diverticulitis. Peritoneum: No ascites or free air. Bladder: Grossly unremarkable. Reproductive: No adnexal masses. Bones: No acute fracture. Bilateral hip arthroplasties. Fused sacroiliac joints. Findings are consist ent with ankylosing spondylitis. Other: n/a IMPRESSION: Small bowel obstruction presumably related to adhesions.
[2022-04-24] MEDS ORDERED: NA CHLORIDE 0.9% 1,000 ML ONE ×2 (18:09→23:28)
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
[2022-04-24] MEDS ORDERED: METRONIDAZOLE 500mg IVPB 500 MG/100 ML BAG IV ONE (19:46)
[2022-04-24] MEDS ORDERED: CIPROFLOXACIN 400mg IV 400 MG/200 ML BAG IV ONE (19:46)
[2022-04-24 20:09] LABS: SARS-CoV-2 Antigen Rapid Res Negative (Negative)
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
[2022-04-24] MEDS: HYDROMORPHONE HCL 1 MG/ML INJ IV PRN (22:57)
[2022-04-24 23:06] VITALS: BMI 31.8
[2022-04-24] MEDS ORDERED: ONDANSETRON 4 MG/2 ML VIAL IV PRN (23:11)
[2022-04-24] MEDS: NA CHLORIDE 0.9% 1,000 ML IV SCH (23:11)
[2022-04-24] MEDS ORDERED: ACETAMINOPHEN 500 MG TAB PO PRN (23:11)
[2022-04-25] MEDS: METRONIDAZOLE 500mg IVPB 500 MG/100 ML BAG IV SCH ×3 (00:55→16:47)
[2022-04-25] MEDS: CIPROFLOXACIN 400mg IV 400 MG/200 ML BAG IV SCH ×2 (00:56→20:00)
[2022-04-25] MEDS ORDERED: ACETAMINOPHEN 500 MG TAB ONE (02:00)
[2022-04-25 02:32] LABS: Absolute Lymphocytes (CBC) 1.5 K/uL (0.7-4.9); Hematocrit 41.1 % (39.6-49.0); Lymphocytes % 19.3 % (15.3-44.8); MCV 86.3 fL (80-100); MPV 9.3 fL (7.6-11.3); RBC Red Blood Cell Count 4.76 M/uL (4.33-5.43)
[2022-04-25] MEDS: HYDROMORPHONE HCL 1 MG/ML INJ IV PRN ×4 (03:32→21:43)
[2022-04-25] MEDS ORDERED: HYDROMORPHONE HCL 1 MG/ML INJ ONE ×3 (03:36→13:21)
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
[2022-04-25] MEDS ORDERED: METRONIDAZOLE 500mg IVPB 500 MG/100 ML BAG IV ONE (08:21)
[2022-04-25] MEDS ORDERED: NA CHLORIDE 0.9% 1,000 ML ONE (08:22)
[2022-04-25] MEDS ORDERED: ENOXAPARIN 40 MG/0.4 ML SQ ONE (08:40)
[2022-04-25] MEDS: ENOXAPARIN 40 MG/0.4 ML SQ SCH (09:00)
[2022-04-25] MEDS: NA CHLORIDE 0.9% 1,000 ML IV SCH ×3 (09:11→18:37)
[2022-04-26] MEDS: METRONIDAZOLE 500mg IVPB 500 MG/100 ML BAG IV SCH ×3 (00:16→16:31)
[2022-04-26] MEDS: HYDROMORPHONE HCL 1 MG/ML INJ IV PRN ×2 (01:39→22:40)
[2022-04-26] MEDS: NA CHLORIDE 0.9% 1,000 ML IV SCH ×2 (05:41→18:25)
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
[2022-04-26 06:47] LABS: Magnesium 2.1 mg/dL (1.8-2.4)
--- NOTE | 2022-04-26 07:21 | RAD REPORT ---
EXAM DESCRIPTION: RAD - Abdomen 1 View (KUB) - 04/26/2022 5:50 am CLINICAL HISTORY: SBO COMPARISON: ABDOMEN 1 VIEW KUB dated 09/02/2013; Abdomen Pelvis W Contrast dated 04/24/2022 FINDINGS: Multiple dilated small bowel loops are still present. Pattern shows no improvement from th e CT study. No free air or pneumatosis has developed. Multiple gallstones again noted in the right up per quadrant. Bilateral hip prostheses are in place. Linear metallic densities lower pelvis are proba yumiko part of prior prostate therapy. No acute bone findings seen. Ankylosing spondylitis is present. SI joints are fused as part of this p rocess. IMPRESSION: Small bowel obstruction pattern similar to the prior day imaging. No free air or pneumatosis have developed.
[2022-04-26 07:31] LABS: Hematocrit 39.7 % (39.6-49.0); Lymphocytes % 12.7 % (15.3-44.8); MCV 86.9 fL (80-100); MPV 8.9 fL (7.6-11.3); RBC Red Blood Cell Count 4.57 M/uL (4.33-5.43)
[2022-04-26] MEDS: CIPROFLOXACIN 400mg IV 400 MG/200 ML BAG IV SCH ×2 (09:05→21:34)
[2022-04-26] MEDS: ENOXAPARIN 40 MG/0.4 ML SQ SCH (09:06)
[2022-04-27] MEDS: METRONIDAZOLE 500mg IVPB 500 MG/100 ML BAG IV SCH ×3 (00:59→16:35)
[2022-04-27] MEDS: NA CHLORIDE 0.9% 1,000 ML IV SCH ×4 (03:00→21:11)
[2022-04-27] MEDS: HYDROMORPHONE HCL 1 MG/ML INJ IV PRN ×3 (03:07→20:34)
[2022-04-27 03:42] LABS: Specific Gravity 1.018 (1.005-1.030); Urine Bilirubin NEGATIVE (Negative); Urine Blood Negative (Negative); Urine Clarity Clear (Clear); Urine Color Yellow (Yellow); Urine Glucose NEGATIVE (Negative); Urine Mucus Slight /HPF (None Seen); Urine Protein NEGATIVE (Negative); Urine RBC <5 /HPF (None Seen); Urine Urobilinogen Normal (Normal)
[2022-04-27 07:05] LABS: Potassium 3.4 mmol/L (3.5-5.1)
--- NOTE | 2022-04-27 07:58 | RAD REPORT ---
EXAM DESCRIPTION: RAD - Abdomen 1 View (KUB) - 04/27/2022 6:03 am CLINICAL HISTORY: Abdomen pain FINDINGS: Mildly to moderately dilated small bowel without significant change from April 24, 2022. This is compatible with an obstruction. Ankylosing spondylitis. Cholelithiasis. Bilateral hip arthroplasties
[2022-04-27] MEDS: ENOXAPARIN 40 MG/0.4 ML SQ SCH (08:20)
[2022-04-27] MEDS: CIPROFLOXACIN 400mg IV 400 MG/200 ML BAG IV SCH ×2 (09:05→20:34)
[2022-04-27] MEDS: KCL 20 MEQ/100 mL IVPB 20 MEQ/100 ML BAG IV SCH ×2 (11:11→14:30)
--- NOTE | 2022-04-27 13:29 | P.PN ---
Subjective Date of Service: 04/26/22 Primary Care Provider: Sidney Chief Complaint: SBO Subjective: Improving (Patient has no nausea, has improvement of abdominal pain, but not resolved, sitting in chair, passing some gas, no BM as yet.) Physical Examination - Vital Signs Temperature: 97 F Blood Pressure: 126/59 Pulse: 58 Respirations: 18 Pulse Ox (%): 97 - Physical Exam General: Alert, In no apparent distress, Cooperative Gastrointestinal: Other (soft, mild global TTP, mild distention, no rebound, no peritonitis. no hernias, well healed scars noted) Assessment And Plan - Current Problems (Diagnosis) (1) Small bowel obstruction Current Visit: Yes Status: Acute Plan: - continue medical management - serial exams - NPO - Ambulate with assist - incentive spirometry - DVT prophylaxis
--- NOTE | 2022-04-27 13:31 | P.PN ---
Subjective Date of Service: 04/27/22 Primary Care Provider: Sidney Chief Complaint: SBO Subjective: Improving (Patient had 2 small BMs, pain improving, but not resolved, no nausea, seen in chair. states passing more gas. hungry) Physical Examination - Vital Signs Temperature: 97 F Blood Pressure: 126/59 Pulse: 58 Respirations: 18 Pulse Ox (%): 97 - Physical Exam General: Alert, In no apparent distress, Cooperative Gastrointestinal: Other (soft, mild TTP, mild distention, not changed from prior exam) Assessment And Plan - Current Problems (Diagnosis) (1) Small bowel obstruction Current Visit: Yes Status: Acute Plan: - continue medical management - serial exams - sips of ice chips only - Ambulate with assist - incentive spirometry - DVT prophylaxis
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
[2022-04-28] MEDS: METRONIDAZOLE 500mg IVPB 500 MG/100 ML BAG IV SCH ×3 (01:29→17:07)
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
[2022-04-28 06:30] LABS: Hematocrit 34.7 % (39.6-49.0); MCV 84.1 fL (80-100); MPV 9.2 fL (7.6-11.3); RBC Red Blood Cell Count 4.12 M/uL (4.33-5.43)
[2022-04-28 06:33] LABS: Potassium 3.6 mmol/L (3.5-5.1)
--- NOTE | 2022-04-28 08:12 | RAD REPORT ---
EXAM DESCRIPTION: RAD - Abdomen 1 View (KUB) - 04/28/2022 6:17 am CLINICAL HISTORY: f/u SBO COMPARISON: Abdomen 1 View (KUB) dated 04/27/2022; Abdomen 1 View (KUB) dated 04/26/2022; ABDOMEN 1 VIEW KUB dated 09/02/2013; Abdomen Pelvis W Contrast dated 04/24/2022 FINDINGS: Persistent dilated small bowel centrally. Support stool gas is present within the colon. A nkylosing spondylitis. Visualized lungs are unremarkable.Cholelithiasis. IMPRESSION: Persistent small-bowel dilatation without significant change and compatible with a small bowel obstruction.
[2022-04-28] MEDS: NA CHLORIDE 0.9% 1,000 ML IV SCH ×2 (09:05→17:07)
[2022-04-28] MEDS: CIPROFLOXACIN 400mg IV 400 MG/200 ML BAG IV SCH ×2 (11:00→20:17)
[2022-04-28] MEDS: ENOXAPARIN 40 MG/0.4 ML SQ SCH (11:54)
--- NOTE | 2022-04-28 16:29 | P.PN ---
Subjective Date of Service: 04/28/22 Primary Care Provider: Sidney Chief Complaint: SBO Subjective: Improving (passing more gas, small bowel movements, pain free, only minimal tenderness) Physical Examination - Vital Signs Temperature: 97.6 F Blood Pressure: 137/77 Pulse: 71 Respirations: 18 Pulse Ox (%): 18 - Physical Exam General: Alert, In no apparent distress, Cooperative Gastrointestinal: Other (soft, minimal tenderness to deep palpation, no pain with routing exam) Assessment And Plan - Current Problems (Diagnosis) (1) Small bowel obstruction Current Visit: Yes Status: Acute Plan: - continue medical management - serial exams - advance diet to fulls, if tolerated will advance to soft in AM - Ambulate with assist - incentive spirometry - DVT prophylaxis - KUB shows no improvement, but clinically improving, tolerating clears well, + bowel function, symptomatic improvement
[2022-04-28] MEDS ORDERED: TRAMADOL HCL 50 MG TAB PO PRN (17:13)
[2022-04-28] MEDS ORDERED: HYDROMORPHONE HCL 0.5 MG/0.5 ML INJ IV PRN (17:14)
[2022-04-29] MEDS: METRONIDAZOLE 500mg IVPB 500 MG/100 ML BAG IV SCH ×3 (00:38→16:31)
[2022-04-29] MEDS: NA CHLORIDE 0.9% 1,000 ML IV SCH (03:11)
[2022-04-29] MEDS: CIPROFLOXACIN 400mg IV 400 MG/200 ML BAG IV SCH ×2 (08:52→19:40)
[2022-04-29] MEDS: ENOXAPARIN 40 MG/0.4 ML SQ SCH (08:52)
[2022-04-29] MEDS ORDERED: MINERAL OIL 30 ML UCUP PO ONE (09:00)
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
[2022-04-29 21:50] VITALS: O2SAT 95
[2022-04-30] MEDS: METRONIDAZOLE 500mg IVPB 500 MG/100 ML BAG IV SCH ×2 (00:07→09:00)
--- NOTE | 2022-04-30 08:15 | P.DS ---
Admission Date: 04/24/22 Discharge Date: 04/30/22 Primary Care Provider: Sidney Disposition: ROUTINE DISCHARGE Discharge Condition: GOOD Reason for Admission: SBO Vital Signs/Physical Exam: Temp Pulse Resp BP Pulse Ox 97.8 F 72 19 147/71 H 96 04/30/22 04:00 04/30/22 04:00 04/30/22 04:00 04/30/22 04:00 04/30/22 04:00 Laboratory Data at Discharge: WBC 5.20 K/uL (4.3-10.9) D 04/28/22 06:01 Hgb 11.7 g/dL (13.6-17.9) L 04/28/22 06:01 Hct 34.7 % (39.6-49.0) L 04/28/22 06:01 Plt Count 146 K/uL (152-406) L 04/28/22 06:01 PT 11.7 SECONDS (9.5-12.5) 04/24/22 16:50 INR 1.06 04/24/22 16:50 Sodium 137 mmol/L (136-145) 04/28/22 06:01 Potassium 3.6 mmol/L (3.5-5.1) 04/28/22 06:01 BUN 6 mg/dL (7-18) L 04/28/22 06:01 Creatinine 0.42 mg/dL (0.55-1.3) L 04/28/22 06:01 Glucose 85 mg/dL (74-106) 04/28/22 06:01 Magnesium 2.0 mg/dL (1.8-2.4) 04/28/22 06:01 Total Bilirubin 0.6 mg/dL (0.2-1.0) 04/24/22 16:28 AST 20 U/L (15-37) 04/24/22 16:28 ALT 23 U/L (12-78) 04/24/22 16:28 Alkaline Phosphatase 112 U/L (45-117) 04/24/22 16:28 Lipase 65 U/L (73-393) L 04/24/22 16:28 Home Medications: Pregabalin [Lyrica] 150 mg PO BID 08/15/18 Gabapentin 600 mg PO TID 09/05/20 Hydrocodone Bit/Acetaminophen [Hydrocodon-Acetaminoph 7.5-325] 1 each PO Q8H 09/05/20 Trazodone [Desyrel*] 100 mg PO BEDTIME 09/05/20 sulfaSALAzine [Sulfasalazine] 500 mg PO BID 09/05/20 Meloxicam 15 mg PO DAILY 09/12/20 Omeprazole 20 mg PO DAILY 09/12/20 Physician Discharge Instructions: Patient presented with abdominal pain and nausea. He was found to have small bowel obstruction. He was managed conservatively with bowel rest and IV fluids. He had eventual return of bowel function. Diet was advanced as tolerated and he continued to have bowel movements, no abdominal pain, and no nausea. He is deemed stable for discharge home. Follow up with Dr. Parr Followup: Ron Little, [Primary Care Provider] -
[2022-04-30 08:19] VITALS: BP 143/86; TEMP 97.9
[2022-04-30] MEDS: ENOXAPARIN 40 MG/0.4 ML SQ SCH (09:00)
[2022-04-30] MEDS: CIPROFLOXACIN 400mg IV 400 MG/200 ML BAG IV SCH (09:00)
== END 2022-04-30 10:37 | disposition home or self-care (01) | DRG 390 ==
LOC: ER 15:00 → ERHOLD 21:10 → 2ND 04-25 16:14
PROVIDERS: ADMIT Hospitalist; ATTEND Hospitalist
DX: K56.50 Intestinal adhesions [bands], unspecified as to partial versus complete obstruction (principal); I10 Essential (primary) hypertension; K21.9 Gastro-esophageal reflux disease without esophagitis; G89.29 Other chronic pain; Z96.642 Presence of left artificial hip joint; Z20.822 Contact with and (suspected) exposure to COVID-19
CPT/HCPCS: 36415; 71045; 74018; 74177; 80048; 80053; 81001; 81003; 81015; 83690; 83735; 85025; 85027; 85610; 87811; 99284; J0744; J1170; J1650; J2405; J3480; J7030; Q9967